=== PATIENT | female | born 1940 | race African-American/Black ===

== ENCOUNTER 2017-01-28 13:09 | Inpatient (IN) ==
--- NOTE | 2017-01-28 14:21 | EKG Report ---
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
[2017-01-28 14:46] LABS: Basophils # 0.1 10*3/uL (0.0-0.2); Basophils % 1.3 % (0.0-0.8); Eosinophils % 14.8 % (0.00-10.9); Hematocrit 35.2 VOL% (35.7-47.0); Hemoglobin 11.2 GM/DL (12.0-16.0); Immature Granulocytes % 0.4 %; Immature Granulocytes Absolute 0.03 #; Lymphocytes # 2.6 10*3/uL (1.4-4.0); Lymphocytes % 37.8 % (21.3-54.2); Mean Corpuscular HGB Conc 31.8 GM/DL (32-36); Mean Corpuscular Hemoglobin 29 PG (27-34); Mean Corpuscular Volume 92.4 FL (87-102); Mean Platelet Volume 11.5 FL (9.6-12.0); Monocytes # 0.7 10*3/uL (0.11-0.8); Monocytes % 10.5 % (1.7-12.7); Neutrophils # 2.4 10*3/uL (1.4-7.4); Neutrophils % 35.2 % (38.7-73.9); Platelet Count 96 T/CUMM (130-400); Red Blood Count 3.81 MC/CUMM (3.8-5.5); White Blood Count 6.9 T/CUMM (4-12)
--- NOTE | 2017-01-28 14:59 | XRay Report ---
XR chest 1V portable Indication: Shortness of breath. Chest one view: Comparison 08/06/2016. Cardiomegaly has resolved since that examination, with continued thoracic aortic tortuosity. Mediastinal wires are again noted. Coarsened interstitial markings of the lungs are present with continued hazy obscuration of both lung bases, especially on the left. Bilateral infrahilar air bronchograms noted. CT of the abdomen and pelvis from 07/01/2016 shows relatively severe diffuse interstitial lung disease. Impression: Resolution of cardiomegaly since 08/06/2016. Diffuse interstitial lung disease again present. Bilateral infrahilar pneumonia/pneumonitis. PROCEDURE INTERPRETED AT [facility] DEPARTMENT OF RADIOLOGY Final Report Signed by: Wolfgang Bradford M.D.
[2017-01-28 15:12] LABS: Apearance,Urine CLEAR (Clear); Bilirubin,Urine Negative (Negative); Blood, Urine Negative (Negative); Glucose,Urine (UA) Negative (Negative); Ketones,Urine Negative (Negative); Nitrite,Urine Negative (Negative); Protein,Urine Negative; Squamous Epithelial Cell,Urine Occasional /HPF (0-10); Urine Color Yellow (Yellow); Urine Urobilinogen < 2.0 EU/DL (0.2-1.0); WBC,Urine <1 /HPF (0-6)
[2017-01-28 15:17] LABS: Alanine Aminotransferase 10 U/L (13-56); Alkaline Phosphatase 87 U/L (45-117); Aspartate Amino Transferase 11 U/L (0-37); Bilirubin,Total < 0.39 MG/DL (0.2-1.0); Blood Urea Nitrogen 41 MG/DL (7-18); Calcium 9.3 MG/DL (8.5-10.1); Glucose 88 MG/DL (74-106); Magnesium 2.4 MG/DL (1.8-2.4); Osmolality,Calculated 278.1 MOS/KG (273-304); Sodium 135 MMOL/L (136-145); Total Protein 7.5 G/DL (6.4-8.3)
[2017-01-28 15:23] LABS: Potassium 6.1 MMOL/L (3.5-5.1)
--- NOTE | 2017-01-28 15:42 | Emergency Department Note ---
Aristeo Mcdaniel Brittany, am scribing for, and in the presence of, Dago Olivas MD 14:21. Brendon Mcdaniel Phillip K, MD, personally performed the services described in this documentation, ascribed by Mikaela Alberts in my presence, and it is both accurate and complete [id number] . Arrival - Arrival Chief Complaint: Weakness Stated Complaint: potassium low ED Nursing Triage Note: C/o generalized weakness, fatigue, and "just not feeling well"-onset two weeks ago. Had blood work drawn yesterday, instructed to come to the ER for elevated potassium of 6.6. Also reports right breast pain , redness, and swelling "for a while". Mode of Arrival: Wheelchair Limitations: No Limitations Source: Patient, Family (son), RN Notes Reviewed Time Seen by Provider: 01/28/17 13:41 - History of Present Illness HPI Narrative: Patient is a 76 y/o black female presenting to the ED with c/o weakness and fatigue with an onset of 2 weeks. Patient had blood work drawn at PCP office and was instructed to come to the ED today for further evaluation of elevated potassium of 6.6, Creatinine of 3.1, Hgb of 11 and Hct of 36. Patient's son reports that patient has had an increase in weakness, productive cough, loss of appetite and fluid intake. Patient states she noticed a hardness forming in her right breast about 3 weeks ago, and since this has progressed into swelling, redness, and warmth to touch of the right breast. He states that patient has a history significant for right Breast CA that was treated per Dr. Nair 5 years ago. He erporets that patient had a Lumpectomy and received radiation therapy. Her last time seeing Dr. Nair was about 3 years ago per son. Son states that after patient's visit with PCP yesterday she had an appointment placed at Dr. Nair's office to receive a mammogram or breast ultrasound. Son reports that patient was getting treated for a UTI and finished her last dose of abx yesterday. He states that 3 days ago patient began to have visual hallucinations with which she was seeing and talking to family members. Patient does not take potassium supplements. Patient has no other complaint/pain in the ED at this time. Onset (ago): week(s) (3) Consistency: constant Date of Last Menstrual Period: tere Allergies/Adverse Reactions: Allergies Allergy/AdvReac Type Severity Reaction Status Date / Time No Known Allergies Allergy Verified 01/28/17 13:27 Home Medications: Home Medications Medication Instructions Recorded Confirmed Type Oxycodone HCl/Acetaminophen 1 tablet PO Q6HR PRN 07/18/15 01/28/17 History [Percocet 10-325 mg Tablet] Albuterol Sulfate [Proair HFA] 2 puffs INH Q4-6H PRN 12/31/15 01/28/17 History Albuterol Tab [Proventil Tab] 2 mg PO DAILY 08/06/16 01/28/17 History Carvedilol [Coreg] 25 mg PO BID 08/06/16 01/28/17 History Isosorbide Mononitrate [Isosorbide 30 mg PO DAILY 08/06/16 01/28/17 History Mononitrate ER] Cyanocobalamin Inj [Vitamin B12 1,000 mcg IM Q30D 01/28/17 01/28/17 History Inj] Esomeprazole Magnesium 40 mg PO DAILY 01/28/17 01/28/17 History [Esomeprazole] Furosemide Tab [Lasix Tab] 40.5 mg PO DAILY 01/28/17 01/28/17 History Venlafaxine HCl [Venlafaxine HCl 75 mg PO DAILY 01/28/17 01/28/17 History ER] Zolpidem Tartrate [Ambien] 10 mg PO BEDTIME PRN 01/28/17 01/28/17 History hydrOXYzine HCL TAB [Atarax Tab] 25 mg PO TID PRN 01/28/17 01/28/17 History Review of System - Review of System 12 point system: reviewed and no additional remarkable complaints except as stated - Review of System Constitutional: Present: as per HPI (breast swelling, redness, hardness), weakness. Absent: chills, fever Eyes: Absent: vision change Head/Ears/Nose/Throat: Absent: nasal drainage, sore throat Respiratory: Absent: respiratory distress Cardiovascular: Absent: chest pain Gastrointestinal: Absent: abdominal pain, nausea, vomiting, diarrhea, constipation Genitourinary female: Absent: dysuria, frequency, urgency Musculoskeletal: Absent: arm pain, back pain, leg pain, neck pain Skin: Absent: rash Neurological: Absent: headache Psychiatric: Present: as per HPI, visual hallucinations. Absent: anxiety, depression Endocrine: Present: fatigue Hematological/Lymphatic: Absent: easy bleeding, easy bruising Medical,Surgical,& Family Hx - Medical History Cardio: History of: Aneurysm (AAA REPAIR), Cardiac Dysrhythmia, CHF, CAD, Hypertension, Valvular Heart Disease, Cardiovascular Problems No history of: Cerebrovascular Disease, Congenital Heart Disease, [place], Pacemaker, PVD Psychological: History of: Depression No history of: Anxiety Disorders, ADHD, Behavior Problems, Bipolar Disorder, Previous Suicide Attempt, Psychiatric/Substance Abuse Tx, Schizophrenia, Violent Behavior, Psychiatric Problems HEENT: History of: 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), Dental Problems, HEENT Problems (nose bleeds times 2-3 weeks) No history of: Ear Problem, Glaucoma, Oral Cancer Endocrine: No history of: Adrenal Disease, Diabetes Mellitus (IDDM), Diabetes Mellitus ( NIDDM), Dyslipidemia, Thyroid Disorder, Endocrine Cancer, Endocrine Problems Rheumatology: History of;: Gout, Rheumatoid Arthritis, Rheumatological Problems No history of;: Fibromyalgia, Myasthenia Gravis, Psoriasis, Sjogrens, Systemic Lupus Erythematosus Respiratory: History of: Bronchitis, COPD, Obstructive Sleep Apnea (wears o2 per nc continuously), Pneumonia No history of: Asthma, Intubation, Pulmonary Embolism, Pulmonary Hypertension , Lung Cancer Renal: History of: Renal Failure (chronic), Renal Problems No history of: Renal (Kidney) Cancer, Dialysis Genitourinary: History of: Kidney Stones, Recurring Urinary Tract Infections, Problems (incontinence) No history of: Bladder Problem, Genitourinary Cancer Gastrointestinal: History of: Diverticulitis/ Diverticulosis, GERD, Hemorrhoids No history of: Bowel Obstruction, Clostridium Difficile, Crohn's Disease, Esophageal Varices, Gastrointestinal Bleed, Hematochezia, Hepatitis, Liver Problems, Pancreatitis, Polyps, Ulcerative Colitis, Gastrointestinal Cancer Musculoskeletal: History of: Amputation, Back/Neck Problems (slipped disk in back), Musculoskeletal Problems (Chronic low back pain) No history of: Degenerative Disk Disease, Herniated Disk, Osteoporosis, Musculoskeletal Cancer Hematology: No history of: Anemia, Blood Transfusion Reaction, Bleeding Problems, Clotting Problems, Sickle Cell Disease, Hematologic Cancer, Blood Disorders Reproductive: History of: Breast Cancer No history of: Abnormal Pap Smear, Endometriosis, Ectopic , Ovarian Cysts, Complication, Sexually Transmitted Disorders, Reproductive Cancer, Reproductive Problems Other: History of: Cancer (breast cancer) No history of: Anesthesia Reactions, Anaphylaxis, Eczema, HIV, Malignant Hyperthermia, MRSA, Vancomycin-Resistant Enterococci, Skin Problems, Miscellaneous Medical Problems - Surgical History Cardiac Surgeries: Sugical HX of: Cardiac Catheterization (heart valve replacement), Cardiac Surgery (valve replacement), Vascular Access Devices ( heart stent in approximately 4 years ago) Patient Denies: Femoral-Popliteal Bypass Graft, Carotid Endarterectomy, Internal Defibrillator Thoracic Surgeries: Patient denies;: Kidney (Renal Surgery), Lithotripsy, Nephrectomy, Organ Transplant, Lobectomy Neurologic Surgeries: Patient denies: Neurologic Surgery HEENT Surgeries: Patient denies: Carotid Endarterectomy, Eye Surgery, Thyroid Surgery, Tonsilectomy & Adenoidectomy Abdominal Surgeries: Surgical HX of: Abdominal Surgery, Cholecystectomy, Colonoscopy, Hernia Repair Patient denies: Appendectomy, Gastric Bypass Surgery, EGD, Splenectomy Reproductive Surgeries: Surgical HX of;: Gynecologic Surgery Patient denies;: Section, Cystoscopy, Dilation and Curettage, Genitourinary Surgery, Hysterectomy, Tubal Ligation Orthopedic Surgeries: Surgical HX of;: Implanted Devices (heart stent and aneurysm repair) Patient denies;: Orthopedic Surgery, Spinal Surgery, Total Hip Replacement, Total Knee Replacement - Family History Family History: Reports;: Family Cancer (materal aunt, grandmother, grandfather , daughter), Family Diabetes (sister), Family Heart Disease (daughter), Family Hypertension ("The whole family has high blood pressure."), Family Stroke ( daughter) Denies;: Family Anesthesia Reaction, Family Psychiatric Problems - Social History Smoking Status: Former smoker Frequency of Alcohol Use: None Type of Drug Use: None Exam Vital Signs: Vital Signs Temperature 96.1 F L 01/28/17 13:35 Pulse Rate 60 01/28/17 13:35 Respiratory Rate 18 01/28/17 13:35 Blood Pressure 107/61 01/28/17 13:35 O2 Sat by Pulse Oximetry 96 01/28/17 13:23 - General General appearance: alert, in no apparent distress - Head Head exam: Present: atraumatic, normocephalic, normal inspection - Eye Eye exam: Present: normal appearance, PERRL, EOMI - ENT ENT exam: Present: normal exam, normal oropharynx, mucous membranes moist - Neck Neck exam: Present: normal inspection, full ROM, trachea midline - Chest Chest inspection: Present: symmetric chest wall rise. Absent: normal inspection (There is diffuse swelling and erythema to the right breast, hot to touch. Palpable hardness. Right breast has an orange peel appearance.) - Respiratory Respiratory exam: Present: rales (bibasilar rales). Absent: normal lung sounds bilaterally - Cardiovascular Cardiovascular exam: Present: regular rate, normal rhythm, murmur (2/6 systolic ejection murmur). Absent: normal heart sounds - Abdominal Exam Abdominal exam: Present: soft, normal bowel sounds. Absent: distention, tenderness - Extremities Exam Extremities exam: Present: normal inspection - Back Exam Back exam: Present: normal inspection - Neurological Exam Neurological exam: Present: alert, CN II-XII intact. Absent: oriented X3 ( patient is oriented to person and place, but is not oriented to time. Per son this is a change.), motor sensory deficit - Psychiatric Psychiatric exam: Present: normal affect - Skin Skin exam: Present: warm, dry Course Course Narrative: Patient discussed with the hospitalist who will admit for further evaluation. Results - Labs CBC & BMP: 01/28/17 14:21 01/28/17 14:21 Lab Results: I have reviewed the patients labs Labs: Laboratory Tests 01/28/17 14:21 WBC 6.9 RBC 3.81 Hgb 11.2 L Hct 35.2 L MCV 92.4 MCH 29 MCHC 31.8 L RDW 16.0 Plt Count 96 L MPV 11.5 Neut % (Auto) 35.2 L Lymph % (Auto) 37.8 [place] % (Auto) 10.5 Eos % (Auto) 14.8 H Baso % (Auto) 1.3 H Neut # (Auto) 2.4 Lymph # (Auto) 2.6 [place] # (Auto) 0.7 Eos # (Auto) 1.0 H Baso # (Auto) 0.1 Immature Gran % 0.4 Nucleated RBC % 0.0 Immature Gran # 0.03 Nucleated RBCs # 0.00 Laboratory Tests 01/28/17 01/28/17 14:21 14:21 Sodium 135 L Potassium 6.1 H* Chloride 103 Carbon Dioxide 23 Anion Gap 15.1 H BUN 41 H Creatinine 3.20 H GFR Calculation 15 BUN/Creatinine Ratio 12.00 Glucose 88 Calculated Osmolality 278.1 Calcium 9.3 Magnesium 2.4 Total Bilirubin < 0.39 AST 11 ALT 10 L Alkaline Phosphatase 87 Total Protein 7.5 Albumin 4.0 Globulin 3.5 Albumin/Globulin Ratio 1.1 Urine Color Yellow Urine Appearance Clear Urine pH 6.0 Ur Specific [place] 1.010 Urine Protein Negative Urine Glucose (UA) Negative Urine Ketones Negative Urine Blood Negative Urine Nitrate Negative Urine Bilirubin Negative Urine Urobilinogen < 2.0 H Urine Leukocytes Negative Urine WBC <1 Ur Squamous Epith Cells Occasional - EKG EKG results: interpreted by ERMD, WNL, sinus rhythm - Diagnostic Findings Procedure: Chest x-ray: report reviewed by me (Resolution of cardiomegaly since 08/06/16. Diffuse interstitial lung disease again present. Bilateral infrahilar pneumonia/pneumonitis.) Disposition Clinical Impression: Hyperkalemia, probable right breast carcinoma, right infrahilar pneumonia, Visual hallucinations, Generalized weakness Case discussed with: patient, patient's family Disposition: Still a Patient Condition: Guarded Additional Instructions: Admit to the hospitalist.
[2017-01-28] MEDS ORDERED: LACTULOSE 20 GM/30 ML UDCUP PO PRN (16:22)
[2017-01-28] MEDS ORDERED: ALBUTEROL/IPRATROPIUM 3 ML NEB RESP TX PRN (16:22)
[2017-01-28] MEDS ORDERED: DOCUSATE SODIUM 100 MG CAPSULE PO PRN (16:22)
[2017-01-28] MEDS ORDERED: ONDANSETRON 4 MG/2 ML VIAL IV PRN (16:22)
[2017-01-28 16:52] LABS: Risk Ratio 5.96; VLDL CHOLESTEROL 42.6 MG/DL
--- NOTE | 2017-01-28 16:58 | Hospitalist History & Physical ---
<Sid Bedoya - Last Filed: 01/28/17 16:37> Assessment and Plan - Time spent with patient Time spent with patient: Greater than 30 minutes (1) Generalized weakness Status: Acute Assessment and plan: Likely related to decreased appetite and dehydration. Start IV fluids. Current Visit: Yes (2) STUART (acute kidney injury) Status: Acute Assessment and plan: BUN 41 creatinine 3.2. This does not appear to be the patient's baseline. She is followed by Dr. Gore nephrology. We will avoid nephrotoxic agents and consult nephrology for recommendations. Current Visit: No (3) Coronary artery disease Status: Acute Assessment and plan: History of coronary artery disease. Status post aortic valve replacement and stent to the abdominal aorta. Monitor lipids. Current Visit: No (4) Hyperkalemia Status: Acute Assessment and plan: Potassium 6.1. Kayexalate should be sufficient for this patient. Current Visit: Yes (5) Visual hallucinations Status: Acute Assessment and plan: With a history of breast cancer, this is concerning. We will get an MRI as a precautionary measure. Current Visit: Yes (6) Debility Status: Acute Current Visit: No (7) Hypertension Status: Chronic Assessment and plan: Appears to be well controlled on home meds. Continue home meds Current Visit: No Qualifiers: Hypertension type: essential hypertension Qualified Code(s): I10 - Essential (primary) hypertension History of Present Illness Chief complaint: Generalized weakness History of present illness: Ms. Doyle is a 76 year old female with complicated past medical history including hypertension, CAD, AAA with stent, aortic valve replacement, COPD on 2L O2, CKD, and history of breast cancer who presents to the ED with complaints of generalized weakness x 3 weeks. On admission, the patient is lying in bed in [facility]. Her son is at bedside and provided most of her history. She denies any pain ; however, she does admit to a progressive decrease in appetite and thirst. She has been having more and more difficulty walking without falling. Her son reports a recent onset of jerky movements in her legs and arms. She also has noticed more swelling and hardness in the upper left quadrant of her right breast. She sees Dr. Nair for her breast cancer and is scheduled to have a mammogram done on February 08. Today, the breast remains warm to the touch and firm. She is afebrile and reports her last BM as last Tuesday. She does have chronic sinusitis and admits to taking Afrin frequently (sometimes daily). She has chronic back pain and takes opioids for that. She has no other complaints at this time. Her son, however, does report that the patient has recently started "talking out of her head" and to family members. CXR on admission shows interstitial lung disease and bilateral infrahilar pneumonia/pneumonitis. EKG shows sinus rhythm with atypical ST changes. Preliminary lab work: Na 135, K 6.1, CL 103, HCO3 23, BUN 41, Cr 3.20, BG 88, WBC 6.9, H/H 11.2/35.2, Plt 96. She will be admitted to the hospital medicine service for further evaluation and treatment. She sees Dr. Gore for her kidney disease. We will consult nephrology and oncology for recommendations. Home Medications Medication Instructions Recorded Confirmed Type Oxycodone HCl/Acetaminophen 1 tablet PO Q6HR PRN 07/18/15 01/28/17 History [Percocet 10-325 mg Tablet] Albuterol Sulfate [Proair HFA] 2 puffs INH Q4-6H PRN 12/31/15 01/28/17 History Albuterol Tab [Proventil Tab] 2 mg PO DAILY 08/06/16 01/28/17 History Carvedilol [Coreg] 25 mg PO BID 08/06/16 01/28/17 History Isosorbide Mononitrate [Isosorbide 30 mg PO DAILY 08/06/16 01/28/17 History Mononitrate ER] Cyanocobalamin Inj [Vitamin B12 1,000 mcg IM Q30D 01/28/17 01/28/17 History Inj] Esomeprazole Magnesium 40 mg PO DAILY 01/28/17 01/28/17 History [Esomeprazole] Furosemide Tab [Lasix Tab] 40.5 mg PO DAILY 01/28/17 01/28/17 History Venlafaxine HCl [Venlafaxine HCl 75 mg PO DAILY 01/28/17 01/28/17 History ER] Zolpidem Tartrate [Ambien] 10 mg PO BEDTIME PRN 01/28/17 01/28/17 History hydrOXYzine HCL TAB [Atarax Tab] 25 mg PO TID PRN 01/28/17 01/28/17 History Allergies Allergy/AdvReac Type Severity Reaction Status Date / Time No Known Allergies Allergy Verified 01/28/17 13:27 Medical,Surgical,& Family Hx - Medical History Cardio: History of: Aneurysm (AAA REPAIR), Cardiac Dysrhythmia, CHF, CAD, Hypertension, Valvular Heart Disease, Cardiovascular Problems No history of: Cerebrovascular Disease, Congenital Heart Disease, [place], Pacemaker, PVD Psychological: History of: Depression No history of: Anxiety Disorders, ADHD, Behavior Problems, Bipolar Disorder, Previous Suicide Attempt, Psychiatric/Substance Abuse Tx, Schizophrenia, Violent Behavior, Psychiatric Problems HEENT: History of: 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), Dental Problems, HEENT Problems (nose bleeds times 2-3 weeks) No history of: Ear Problem, Glaucoma, Oral Cancer Endocrine: No history of: Adrenal Disease, Diabetes Mellitus (IDDM), Diabetes Mellitus ( NIDDM), Dyslipidemia, Thyroid Disorder, Endocrine Cancer, Endocrine Problems Rheumatology: History of;: Gout, Rheumatoid Arthritis, Rheumatological Problems No history of;: Fibromyalgia, Myasthenia Gravis, Psoriasis, Sjogrens, Systemic Lupus Erythematosus Respiratory: History of: Bronchitis, COPD, Obstructive Sleep Apnea (wears o2 per nc continuously), Pneumonia No history of: Asthma, Intubation, Pulmonary Embolism, Pulmonary Hypertension , Lung Cancer Renal: History of: Renal Failure (chronic), Renal Problems No history of: Renal (Kidney) Cancer, Dialysis Genitourinary: History of: Kidney Stones, Recurring Urinary Tract Infections, Problems (incontinence) No history of: Bladder Problem, Genitourinary Cancer Gastrointestinal: History of: Diverticulitis/ Diverticulosis, GERD, Hemorrhoids No history of: Bowel Obstruction, Clostridium Difficile, Crohn's Disease, Esophageal Varices, Gastrointestinal Bleed, Hematochezia, Hepatitis, Liver Problems, Pancreatitis, Polyps, Ulcerative Colitis, Gastrointestinal Cancer Musculoskeletal: History of: Amputation, Back/Neck Problems (slipped disk in back), Musculoskeletal Problems (Chronic low back pain) No history of: Degenerative Disk Disease, Herniated Disk, Osteoporosis, Musculoskeletal Cancer Hematology: No history of: Anemia, Blood Transfusion Reaction, Bleeding Problems, Clotting Problems, Sickle Cell Disease, Hematologic Cancer, Blood Disorders Reproductive: History of: Breast Cancer No history of: Abnormal Pap Smear, Endometriosis, Ectopic , Ovarian Cysts, Complication, Sexually Transmitted Disorders, Reproductive Cancer, Reproductive Problems Other: History of: Cancer (breast cancer) No history of: Anesthesia Reactions, Anaphylaxis, Eczema, HIV, Malignant Hyperthermia, MRSA, Vancomycin-Resistant Enterococci, Skin Problems, Miscellaneous Medical Problems - Surgical History Cardiac Surgeries: Sugical HX of: Cardiac Catheterization (heart valve replacement), Cardiac Surgery (valve replacement), Vascular Access Devices ( heart stent in approximately 4 years ago) Patient Denies: Femoral-Popliteal Bypass Graft, Carotid Endarterectomy, Internal Defibrillator Thoracic Surgeries: Patient denies;: Kidney (Renal Surgery), Lithotripsy, Nephrectomy, Organ Transplant, Lobectomy Neurologic Surgeries: Patient denies: Neurologic Surgery HEENT Surgeries: Patient denies: Carotid Endarterectomy, Eye Surgery, Thyroid Surgery, Tonsilectomy & Adenoidectomy Abdominal Surgeries: Surgical HX of: Abdominal Surgery, Cholecystectomy, Colonoscopy, Hernia Repair Patient denies: Appendectomy, Gastric Bypass Surgery, EGD, Splenectomy Reproductive Surgeries: Surgical HX of;: Gynecologic Surgery Patient denies;: Section, Cystoscopy, Dilation and Curettage, Genitourinary Surgery, Hysterectomy, Tubal Ligation Orthopedic Surgeries: Surgical HX of;: Implanted Devices (heart stent and aneurysm repair) Patient denies;: Orthopedic Surgery, Spinal Surgery, Total Hip Replacement, Total Knee Replacement - Family History Family History: Reports;: Family Cancer (materal aunt, grandmother, grandfather , daughter), Family Diabetes (sister), Family Heart Disease (daughter), Family Hypertension ("The whole family has high blood pressure."), Family Stroke ( daughter) Denies;: Family Anesthesia Reaction, Family Psychiatric Problems - Social History Smoking Status: Former smoker Frequency of Alcohol Use: None Type of Drug Use: None Marital Status: Single Lives With:: Children Functional capacity: uses cane/walker - Constitutional Constitutional: Present: daytime sleepiness, frequent falls, weakness. Absent: fever(s), headache(s) - EENT Eyes: Absent: blurry vision, loss of vision Ears: Absent: decreased hearing, ear pain Nose, mouth and throat: Present: sinus pressure. Absent: dysphagia, headache(s) , hoarseness, neck mass - Cardiovascular Cardiovascular: Present: dyspnea. Absent: chest pain at rest, chest pain with activity, diaphoresis, edema, radiating jaw, neck or arm pain, palpitations - Respiratory Respiratory: Present: dyspnea. Absent: cough, hemoptysis, pain on inspiration - Gastrointestinal Gastrointestinal: Present: abdominal pain, change in bowel habits, constipation. Absent: bloating, diarrhea, melena, nausea - Genitourinary Genitourinary: Absent: difficulty urinating, dysuria, flank pain, hematuria - Musculoskeletal Musculoskeletal: Present: back pain - Neurological Neurological: Present: confusion. Absent: abnormal gait, abnormal speech, dizziness, syncope - Psychiatric Psychiatric: Present: confusion, visual hallucinations. Absent: auditory hallucinations - Endocrine Endocrine: Present: fatigue. Absent: cold intolerance, heat intolerance - Hematologic/Lymphatic Hematologic/Lymphatic: Absent: easy bleeding, easy bruising Exam - Constitutional Vitals: Period Temp Pulse Resp BP Sys/Benjamin Pulse Ox Last 24 Hr 96.1 F-96.1 F 60-60 18-18 107-107/61-61 96 Exam: General appearance: Overweight, no acute distress - Head Head exam: Present: normocephalic, atraumatic - Eye Eye exam: Present: EOMI. Absent: conjunctival injection, nystagmus Pupils: Present: GORDY, normal accommodation - ENT ENT exam: Present: normal exam, normal external ear exam - Neck Neck exam: Present: normal inspection. Absent: lymphadenopathy, tenderness, thyromegaly - Respiratory Respiratory exam: Present: clear to auscultation bilaterally. Absent: rales, rhonchi, wheezes - Cardiovascular Cardiovascular exam: Present: regular rate and rhythm. Absent: carotid bruit, gallop, rubs - GI/Abdominal GI/Abdominal exam: Present: normal bowel sounds. Absent: ascites, distended, mass - Extremities Exam Extremities exam: Present: normal inspection, normal capillary refill. Absent: edema - Back Exam Back exam: Absent: CVA tenderness (L), CVA tenderness (R) - Neurological Exam Neurological exam: Present: alert, oriented X3, slightly confused - Psychiatric Psychiatric exam: Present: normal affect, normal mood - Skin Skin exam: Present: normal color, warm, dry Results - Labs CBC & BMP: 01/28/17 14:21 01/28/17 14:21 Lab Results: I have reviewed the past 24 hour labs - EKG EKG results: interpreted by ERMD - Diagnostic Findings Procedure: Chest x-ray: image reviewed by me, report reviewed by me (pneumonia/ pneumonitis) <Anna Sotelo - Last Filed: 01/28/17 18:14> History of Present Illness History of present illness: Patient seen and examined along with VON Bedoya, agree with history, assessment and plan as documented. 76 y/o AAF with history of breast cancer admitted with pneumonia, stuart on ckd and hallucinations. Patient and son report approximately a 40 pound weight loss in 2 months. Appearance of right breast is concerning. Will hydrate and treat with azithromycin and rocephin. Will order breast ultrasound and CT head. Believe that she will also require MRI brain. Exam - Constitutional Vitals: Period Temp Pulse Resp BP Sys/Benjamin Pulse Ox Last 24 Hr 97.7 F 65 16 120/67 96 Results - Labs CBC & BMP: 01/28/17 14:21 01/28/17 14:21
--- NOTE | 2017-01-28 17:04 | XRay Report ---
Exam: XR KUB Date: 01/28/2017 4:28 PM Comparison: 07/01/2016 Indication: Constipation Technique:[Portable supine abdomen] Findings: Nonobstructive bowel gas pattern with increased fecal material in the colon. Prior cholecystectomy with aortoiliac stent graft. Degenerative changes are noted. Impression: Nonobstructed bowel gas pattern with increased fecal material consistent with constipation. Prior cholecystectomy with aorto iliac stent graft. PROCEDURE INTERPRETED AT [facility] DEPARTMENT OF RADIOLOGY Final Report Signed by: Dr. Lindsey Samson
[2017-01-28] MEDS: cefTRIAXone 1,000 MG in SODIUM CHLORIDE 0.9% 100 ML IV SCH (17:30)
[2017-01-28] MEDS: SODIUM CHLORIDE 0.9% 1,000 ML IV SCH ×2 (17:30→23:30)
[2017-01-28 18:56] LABS: Eosinophils 14 % (0-10); Lymphocytes 38 % (20-55); Platelet Estimate Normal; Segmented Neutrophils 39 % (50-85); Total Cells Counted 100
--- NOTE | 2017-01-28 19:22 | CT Report ---
Referring physician: Anna Sotelo MD Exam: CT brain without contrast Date: 01/28/2017 Comparison: 09/21/2016 Reason: Alteration of consciousness, hallucinations Technique: Axial images of the head were obtained without the use of contrast. Total DLP was 914.6 mGy*cm. Findings: The ventricles remain borderline in size with no midline displacement. Diffuse atrophy and several hypodensities with chronic left cerebellar infarction. Arterial calcifications are noted. There is no evidence of an acute infarction, recent intracranial hemorrhage or abnormal mass effect. The osseous structures appear intact. The mastoid air cells are clear. Diffuse mucosal thickening/fluid in the visualized paranasal sinuses. Impression: No acute intracranial abnormality is identified. Persistent atrophy and microvascular disease with chronic left cerebellar infarction. Improved sinusitis. The CT exam was performed using one or more of the following dose reduction techniques: Automated exposure control and adjustment of the mA and/or kV according to patient size. PROCEDURE INTERPRETED AT [facility] DEPARTMENT OF RADIOLOGY Final Report Signed by: Dr. Lindsey Samson
[2017-01-28] MEDS: CARVEDILOL 25 MG TABLET PO SCH (20:09)
[2017-01-28] MEDS: ZALEPLON 5 MG CAPSULE PO PRN (20:09)
[2017-01-28] MEDS: AZITHROMYCIN INJ 500 MG in SODIUM CHLORIDE 0.9% 250 ML IV SCH (21:07)
[2017-01-29 03:24] LABS: Basophils % 0.5 % (0.0-0.8); Eosinophils # 1.8 10*3/uL (0.0-0.87); Eosinophils % 23.6 % (0.00-10.9); Hematocrit 32.6 VOL% (35.7-47.0); Hemoglobin 10.2 GM/DL (12.0-16.0); Immature Granulocytes % 0.4 %; Immature Granulocytes Absolute 0.03 #; Lymphocytes # 2.1 10*3/uL (1.4-4.0); Lymphocytes % 28.1 % (21.3-54.2); Mean Corpuscular HGB Conc 31.3 GM/DL (32-36); Mean Corpuscular Hemoglobin 29 PG (27-34); Mean Corpuscular Volume 93.1 FL (87-102); Mean Platelet Volume 11.9 FL (9.6-12.0); Monocytes # 0.8 10*3/uL (0.11-0.8); Monocytes % 11.1 % (1.7-12.7); Neutrophils # 2.8 10*3/uL (1.4-7.4); Neutrophils % 36.3 % (38.7-73.9); Platelet Count 86 T/CUMM (130-400); White Blood Count 7.6 T/CUMM (4-12)
[2017-01-29 03:43] LABS: Osmolality,Calculated 287.5 MOS/KG (273-304); Potassium 5.6 MMOL/L (3.5-5.1)
[2017-01-29 04:06] LABS: Eosinophils 22 % (0-10); Lymphocytes 29 % (20-55); Platelet Estimate Decreased; Segmented Neutrophils 41 % (50-85); Total Cells Counted 100
[2017-01-29 04:07] LABS: Hypochromasia Slight; Ovalocytes Few; Polychromasia 1+
[2017-01-29 07:27] LABS: Folate 11.7 NG/ML (5.4-24.0); Vitamin B12 > 2000 PG/ML (211-911)
[2017-01-29] MEDS: VENLAFAXINE XR 75 MG CAPSULE PO SCH (08:16)
[2017-01-29] MEDS: FUROSEMIDE 40 MG TABLET PO SCH (08:16)
[2017-01-29] MEDS: CARVEDILOL 25 MG TABLET PO SCH ×2 (08:16→20:18)
[2017-01-29] MEDS: ISOSORBIDE MONONITRATE 30 MG TABLET PO SCH (08:16)
[2017-01-29] MEDS: SODIUM CHLORIDE 0.9% 1,000 ML IV SCH ×3 (10:01→23:49)
--- NOTE | 2017-01-29 10:58 | Oncology Consult Note ---
History of Present Illness History of present illness: Ms. Doyle is a 76 year old female with a distant history of stage I right- sided breast cancer status post mastectomy followed by radiation and adjuvant anti-hormonal therapy. Her initial diagnosis was in 2008 and she completed therapy in 2013. Her last visit with Dr. Elam was in 2014. She was lost to follow-up after that point. She reports significant weight loss over the last year and states she has had numerous medical problems during that time. She said she lost over 100 pounds. In the last 2-3 weeks she says her right breast become more swollen and warm to the touch. She also notes that the area of darkening from radiation has worsened. On breast exam I do not palpate any obvious mass. The darkening of her skin appears to be radiation related but I do not have a previous picture of her breast to compare to. I think it is worth at least starting with a mammogram of the right breast to evaluate for a mass. Also order a CA 15-3 from her serum. Her creatinine is elevated at 3 so we will hold off on ordering a CT scan at this point. Given her significant weight loss it may be brito to have one done at some point. She was very alert and oriented this morning on my exam. She states she is weak and fatigued. I will defer further workup to Dr. Elam when he returns next week. I am unsure if the mammogram can be done over the weekend. Home Medications Medication Instructions Recorded Confirmed Type Oxycodone HCl/Acetaminophen 1 tablet PO Q6HR PRN 07/18/15 01/28/17 History [Percocet 10-325 mg Tablet] Albuterol Sulfate [Proair HFA] 2 puffs INH Q4-6H PRN 12/31/15 01/28/17 History Albuterol Tab [Proventil Tab] 2 mg PO DAILY 08/06/16 01/28/17 History Carvedilol [Coreg] 25 mg PO BID 08/06/16 01/28/17 History Isosorbide Mononitrate [Isosorbide 30 mg PO DAILY 08/06/16 01/28/17 History Mononitrate ER] Cyanocobalamin Inj [Vitamin B12 1,000 mcg IM Q30D 01/28/17 01/28/17 History Inj] Esomeprazole Magnesium 40 mg PO DAILY 01/28/17 01/28/17 History [Esomeprazole] Furosemide Tab [Lasix Tab] 40.5 mg PO DAILY 01/28/17 01/28/17 History Venlafaxine HCl [Venlafaxine HCl 75 mg PO DAILY 01/28/17 01/28/17 History ER] Zolpidem Tartrate [Ambien] 10 mg PO BEDTIME PRN 01/28/17 01/28/17 History hydrOXYzine HCL TAB [Atarax Tab] 25 mg PO TID PRN 01/28/17 01/28/17 History Allergies Allergy/AdvReac Type Severity Reaction Status Date / Time No Known Allergies Allergy Verified 01/28/17 13:27 Medical,Surgical,& Family Hx - Medical History Cardio: History of: Aneurysm (AAA REPAIR), Cardiac Dysrhythmia, CHF, CAD, Hypertension, Valvular Heart Disease, Cardiovascular Problems No history of: Cerebrovascular Disease, Congenital Heart Disease, [place], Pacemaker, PVD Psychological: History of: Depression No history of: Anxiety Disorders, ADHD, Behavior Problems, Bipolar Disorder, Previous Suicide Attempt, Psychiatric/Substance Abuse Tx, Schizophrenia, Violent Behavior, Psychiatric Problems HEENT: History of: 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), Dental Problems, HEENT Problems (nose bleeds times 2-3 weeks) No history of: Ear Problem, Glaucoma, Oral Cancer Endocrine: No history of: Adrenal Disease, Diabetes Mellitus (IDDM), Diabetes Mellitus ( NIDDM), Dyslipidemia, Thyroid Disorder, Endocrine Cancer, Endocrine Problems Rheumatology: History of;: Gout, Rheumatoid Arthritis, Rheumatological Problems No history of;: Fibromyalgia, Myasthenia Gravis, Psoriasis, Sjogrens, Systemic Lupus Erythematosus Respiratory: History of: Bronchitis, COPD, Obstructive Sleep Apnea (wears o2 per nc continuously), Pneumonia No history of: Asthma, Intubation, Pulmonary Embolism, Pulmonary Hypertension , Lung Cancer Renal: History of: Renal Failure (chronic), Renal Problems No history of: Renal (Kidney) Cancer, Dialysis Genitourinary: History of: Kidney Stones, Recurring Urinary Tract Infections, Problems (incontinence) No history of: Bladder Problem, Genitourinary Cancer Gastrointestinal: History of: Diverticulitis/ Diverticulosis, GERD, Hemorrhoids No history of: Bowel Obstruction, Clostridium Difficile, Crohn's Disease, Esophageal Varices, Gastrointestinal Bleed, Hematochezia, Hepatitis, Liver Problems, Pancreatitis, Polyps, Ulcerative Colitis, Gastrointestinal Cancer Musculoskeletal: History of: Amputation, Back/Neck Problems (slipped disk in back), Musculoskeletal Problems (Chronic low back pain) No history of: Degenerative Disk Disease, Herniated Disk, Osteoporosis, Musculoskeletal Cancer Hematology: No history of: Anemia, Blood Transfusion Reaction, Bleeding Problems, Clotting Problems, Sickle Cell Disease, Hematologic Cancer, Blood Disorders Reproductive: History of: Breast Cancer No history of: Abnormal Pap Smear, Endometriosis, Ectopic , Ovarian Cysts, Complication, Sexually Transmitted Disorders, Reproductive Cancer, Reproductive Problems Other: History of: Cancer (breast cancer) No history of: Anesthesia Reactions, Anaphylaxis, Eczema, HIV, Malignant Hyperthermia, MRSA, Vancomycin-Resistant Enterococci, Skin Problems, Miscellaneous Medical Problems - Surgical History Cardiac Surgeries: Sugical HX of: Cardiac Catheterization (heart valve replacement), Cardiac Surgery (valve replacement), Vascular Access Devices ( heart stent in approximately 4 years ago) Patient Denies: Femoral-Popliteal Bypass Graft, Carotid Endarterectomy, Internal Defibrillator Thoracic Surgeries: Patient denies;: Kidney (Renal Surgery), Lithotripsy, Nephrectomy, Organ Transplant, Lobectomy Neurologic Surgeries: Patient denies: Neurologic Surgery HEENT Surgeries: Patient denies: Carotid Endarterectomy, Eye Surgery, Thyroid Surgery, Tonsilectomy & Adenoidectomy Abdominal Surgeries: Surgical HX of: Abdominal Surgery, Cholecystectomy, Colonoscopy, Hernia Repair Patient denies: Appendectomy, Gastric Bypass Surgery, EGD, Splenectomy Reproductive Surgeries: Surgical HX of;: Gynecologic Surgery Patient denies;: Section, Cystoscopy, Dilation and Curettage, Genitourinary Surgery, Hysterectomy, Tubal Ligation Orthopedic Surgeries: Surgical HX of;: Implanted Devices (heart stent and aneurysm repair) Patient denies;: Orthopedic Surgery, Spinal Surgery, Total Hip Replacement, Total Knee Replacement - Family History Family History: Reports;: Family Cancer (materal aunt, grandmother, grandfather , daughter), Family Diabetes (sister), Family Heart Disease (daughter), Family Hypertension ("The whole family has high blood pressure."), Family Stroke ( daughter) Denies;: Family Anesthesia Reaction, Family Psychiatric Problems - Social History Smoking Status: Former smoker Frequency of Alcohol Use: None Type of Drug Use: None Exam - Constitutional Vitals: Period Temp Pulse Resp BP Sys/Benjamin Pulse Ox Last 24 Hr 96.9 F-99.4 F 58-69 16-18 120-162/65-87 91-96 Results - Labs CBC & BMP: 01/29/17 02:52 01/29/17 02:52
--- NOTE | 2017-01-29 13:21 | Hospitalist Progress Note ---
Assessment and Plan - Time spent with patient Time spent with patient: Less than 30 minutes (1) Hypertension Status: Chronic Current Visit: No Qualifiers: Hypertension type: essential hypertension Qualified Code(s): I10 - Essential (primary) hypertension (2) Hypomagnesemia Status: Acute Current Visit: No (3) Acute on chronic renal failure Status: Acute Assessment and plan: continue fluids monitor Cr Current Visit: No (4) Hyperkalemia Status: Acute Current Visit: Yes (5) Visual hallucinations Status: Acute Current Visit: Yes (6) Generalized weakness Status: Acute Assessment and plan: has weight loss and will need CT abd and chest once renal function recovers may need cancer restaging consult oncology Current Visit: Yes Hospitalist: Subjective Interval history: pt admitted yesterday with renal failure, hypokalemia, hallucinations, and breast changes and weight loss with hx of breast cancer pt on IV fluids no issues reported overnight Exam - Constitutional Vitals: Period Temp Pulse Resp BP Sys/Benjamin Pulse Ox Last 24 Hr 96.9 F-99.4 F 58-69 16-18 120-162/65-87 90-96 General appearance: no acute distress, over weight - Head Head exam: Present: normal inspection, normocephalic, atraumatic - Eye Eye exam: Present: EOMI Pupils: Present: GORDY - ENT ENT exam: Present: normal exam - Neck Neck exam: Present: normal inspection - Respiratory Respiratory exam: Present: clear to auscultation bilaterally - Cardiovascular Cardiovascular exam: Present: regular rate and rhythm. Absent: irregular rhythm , JVD - GI/Abdominal GI/Abdominal exam: Present: normal bowel sounds. Absent: ascites, distended, firm, guarding - Extremities Exam Extremities exam: Present: normal inspection - Back Exam Back exam: Present: normal inspection. Absent: CVA tenderness (L), CVA tenderness (R) - Neurological Exam Neurological exam: Present: alert, oriented X3 - Psychiatric Psychiatric exam: Present: normal affect, normal mood - Skin Skin exam: Present: normal color, other (breast on right side has dark discoloration which pt believes is new) Results - Labs CBC & BMP: 01/29/17 02:52 01/29/17 02:52 Lab Results: I have reviewed the past 24 hour labs
[2017-01-29] MEDS ORDERED: SODIUM POLYSTYRENE SULFATE 15 GM/60 ML BOTTLE PO STA (13:24)
[2017-01-29] MEDS: HEPARIN 5,000 UNIT/1 ML VIAL SUBCUT SCH ×2 (13:53→21:03)
--- NOTE | 2017-01-29 15:55 | Nephrology Consult Note ---
History of Present Illness Chief complaint: ARF History of present illness: Ms. Doyle is a 76 year old female with several chronic medical problems including chronic renal insufficiency. Her baseline creatinine in September was less than 2. Renal function was noted to be worse at the time of this admission. She was also hyperkalemic. She presented with a three-week history of generalized weakness. She's had decreased appetite and weight loss. She has a history of breast cancer and was scheduled to have a mammogram later this month to reevaluate. Home Medications Medication Instructions Recorded Confirmed Type Oxycodone HCl/Acetaminophen 1 tablet PO Q6HR PRN 07/18/15 01/28/17 History [Percocet 10-325 mg Tablet] Albuterol Sulfate [Proair HFA] 2 puffs INH Q4-6H PRN 12/31/15 01/28/17 History Albuterol Tab [Proventil Tab] 2 mg PO DAILY 08/06/16 01/28/17 History Carvedilol [Coreg] 25 mg PO BID 08/06/16 01/28/17 History Isosorbide Mononitrate [Isosorbide 30 mg PO DAILY 08/06/16 01/28/17 History Mononitrate ER] Cyanocobalamin Inj [Vitamin B12 1,000 mcg IM Q30D 01/28/17 01/28/17 History Inj] Esomeprazole Magnesium 40 mg PO DAILY 01/28/17 01/28/17 History [Esomeprazole] Furosemide Tab [Lasix Tab] 40.5 mg PO DAILY 01/28/17 01/28/17 History Venlafaxine HCl [Venlafaxine HCl 75 mg PO DAILY 01/28/17 01/28/17 History ER] Zolpidem Tartrate [Ambien] 10 mg PO BEDTIME PRN 01/28/17 01/28/17 History hydrOXYzine HCL TAB [Atarax Tab] 25 mg PO TID PRN 01/28/17 01/28/17 History Allergies Allergy/AdvReac Type Severity Reaction Status Date / Time No Known Allergies Allergy Verified 01/28/17 13:27 Medical,Surgical,& Family Hx - Medical History Cardio: History of: Aneurysm (AAA REPAIR), Cardiac Dysrhythmia, CHF, CAD, Hypertension, Valvular Heart Disease, Cardiovascular Problems No history of: Cerebrovascular Disease, Congenital Heart Disease, [place], Pacemaker, PVD Psychological: History of: Depression No history of: Anxiety Disorders, ADHD, Behavior Problems, Bipolar Disorder, Previous Suicide Attempt, Psychiatric/Substance Abuse Tx, Schizophrenia, Violent Behavior, Psychiatric Problems HEENT: History of: 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), Dental Problems, HEENT Problems (nose bleeds times 2-3 weeks) No history of: Ear Problem, Glaucoma, Oral Cancer Endocrine: No history of: Adrenal Disease, Diabetes Mellitus (IDDM), Diabetes Mellitus ( NIDDM), Dyslipidemia, Thyroid Disorder, Endocrine Cancer, Endocrine Problems Rheumatology: History of;: Gout, Rheumatoid Arthritis, Rheumatological Problems No history of;: Fibromyalgia, Myasthenia Gravis, Psoriasis, Sjogrens, Systemic Lupus Erythematosus Respiratory: History of: Bronchitis, COPD, Obstructive Sleep Apnea (wears o2 per nc continuously), Pneumonia No history of: Asthma, Intubation, Pulmonary Embolism, Pulmonary Hypertension , Lung Cancer Renal: History of: Renal Failure (chronic), Renal Problems No history of: Renal (Kidney) Cancer, Dialysis Genitourinary: History of: Kidney Stones, Recurring Urinary Tract Infections, Problems (incontinence) No history of: Bladder Problem, Genitourinary Cancer Gastrointestinal: History of: Diverticulitis/ Diverticulosis, GERD, Hemorrhoids No history of: Bowel Obstruction, Clostridium Difficile, Crohn's Disease, Esophageal Varices, Gastrointestinal Bleed, Hematochezia, Hepatitis, Liver Problems, Pancreatitis, Polyps, Ulcerative Colitis, Gastrointestinal Cancer Musculoskeletal: History of: Amputation, Back/Neck Problems (slipped disk in back), Musculoskeletal Problems (Chronic low back pain) No history of: Degenerative Disk Disease, Herniated Disk, Osteoporosis, Musculoskeletal Cancer Hematology: No history of: Anemia, Blood Transfusion Reaction, Bleeding Problems, Clotting Problems, Sickle Cell Disease, Hematologic Cancer, Blood Disorders Reproductive: History of: Breast Cancer No history of: Abnormal Pap Smear, Endometriosis, Ectopic , Ovarian Cysts, Complication, Sexually Transmitted Disorders, Reproductive Cancer, Reproductive Problems Other: History of: Cancer (breast cancer) No history of: Anesthesia Reactions, Anaphylaxis, Eczema, HIV, Malignant Hyperthermia, MRSA, Vancomycin-Resistant Enterococci, Skin Problems, Miscellaneous Medical Problems - Surgical History Cardiac Surgeries: Sugical HX of: Cardiac Catheterization (heart valve replacement), Cardiac Surgery (valve replacement), Vascular Access Devices ( heart stent in approximately 4 years ago) Patient Denies: Femoral-Popliteal Bypass Graft, Carotid Endarterectomy, Internal Defibrillator Thoracic Surgeries: Patient denies;: Kidney (Renal Surgery), Lithotripsy, Nephrectomy, Organ Transplant, Lobectomy Neurologic Surgeries: Patient denies: Neurologic Surgery HEENT Surgeries: Patient denies: Carotid Endarterectomy, Eye Surgery, Thyroid Surgery, Tonsilectomy & Adenoidectomy Abdominal Surgeries: Surgical HX of: Abdominal Surgery, Cholecystectomy, Colonoscopy, Hernia Repair Patient denies: Appendectomy, Gastric Bypass Surgery, EGD, Splenectomy Reproductive Surgeries: Surgical HX of;: Gynecologic Surgery Patient denies;: Section, Cystoscopy, Dilation and Curettage, Genitourinary Surgery, Hysterectomy, Tubal Ligation Orthopedic Surgeries: Surgical HX of;: Implanted Devices (heart stent and aneurysm repair) Patient denies;: Orthopedic Surgery, Spinal Surgery, Total Hip Replacement, Total Knee Replacement - Family History Family History: Reports;: Family Cancer (materal aunt, grandmother, grandfather , daughter), Family Diabetes (sister), Family Heart Disease (daughter), Family Hypertension ("The whole family has high blood pressure."), Family Stroke ( daughter) Denies;: Family Anesthesia Reaction, Family Psychiatric Problems - Social History Smoking Status: Former smoker Frequency of Alcohol Use: None Type of Drug Use: None Review of Systems 12 point system: reviewed and no additional remarkable complaints except as stated Exam - Vital Signs Vital signs: Period Temp Pulse Resp BP Sys/Benjamin Pulse Ox Last 24 Hr 96.9 F-99.4 F 58-69 16-18 120-162/65-87 90-96 Exam: Gen.: Alert and oriented x3. ENT: Pupils equal round reactive to light. EOMs intact. Mucous membranes dry Neck: Supple. No JVD or bruit. Cardiovascular: Regular rate and rhythm. No murmur rub or gallop Lungs: Clear Abdomen: Soft. Nontender. Positive bowel sounds. No organomegaly Extremities: No edema Results - Labs CBC & BMP: 01/29/17 02:52 01/29/17 02:52 Assessment and Plan (1) Acute on chronic renal failure Status: Acute Assessment and plan: 76-year-old woman admitted with: * CRF 3 * ARF. She is volume depleted. Agree with IV fluid * Hyperkalemia. Improved * Weight loss and anorexia. She is being evaluated for possible recurrence or metastasis of breast cancer * Prosthetic aortic valve * CAD * Hypertension * COPD Current Visit: No (2) COPD (chronic obstructive pulmonary disease) Status: Acute Current Visit: Yes (3) History of breast cancer Status: Acute Current Visit: Yes (4) Generalized weakness Status: Acute Current Visit: Yes (5) Hyperkalemia Status: Acute Current Visit: Yes (6) Bronchitis Status: Acute Current Visit: No (7) Generalized weakness Status: Acute Current Visit: No (8) H/O aortic valve replacement Status: Chronic Current Visit: No (9) Hypertension Status: Chronic Current Visit: No Qualifiers: Hypertension type: essential hypertension Qualified Code(s): I10 - Essential (primary) hypertension
[2017-01-29] MEDS: cefTRIAXone 1,000 MG in SODIUM CHLORIDE 0.9% 100 ML IV SCH (16:54)
[2017-01-29] MEDS: AZITHROMYCIN INJ 500 MG in SODIUM CHLORIDE 0.9% 250 ML IV SCH (20:17)
[2017-01-29] MEDS: ZALEPLON 5 MG CAPSULE PO PRN (20:18)
[2017-01-29] MEDS: hydrOXYzine HCL 25 MG TABLET PO PRN (22:17)
[2017-01-30] MEDS: HEPARIN 5,000 UNIT/1 ML VIAL SUBCUT SCH ×3 (04:49→21:32)
[2017-01-30 07:33] LABS: Basophils # 0.1 10*3/uL (0.0-0.2); Basophils % 0.9 % (0.0-0.8); Eosinophils # 0.3 10*3/uL (0.0-0.87); Eosinophils % 3.8 % (0.00-10.9); Hematocrit 31.7 VOL% (35.7-47.0); Hemoglobin 10.1 GM/DL (12.0-16.0); Immature Granulocytes % 0.9 %; Immature Granulocytes Absolute 0.06 #; Lymphocytes # 2.3 10*3/uL (1.4-4.0); Lymphocytes % 34.8 % (21.3-54.2); Mean Corpuscular HGB Conc 31.9 GM/DL (32-36); Mean Corpuscular Hemoglobin 29 PG (27-34); Mean Corpuscular Volume 91.6 FL (87-102); Mean Platelet Volume 11.4 FL (9.6-12.0); Monocytes # 0.5 10*3/uL (0.11-0.8); Monocytes % 7.8 % (1.7-12.7); Neutrophils # 3.5 10*3/uL (1.4-7.4); Neutrophils % 51.8 % (38.7-73.9); Platelet Count 90 T/CUMM (130-400); Red Blood Count 3.46 MC/CUMM (3.8-5.5); Red Cell Distribution Width 16.1 % (9.3-17.3); White Blood Count 6.7 T/CUMM (4-12)
[2017-01-30 08:08] LABS: Calcium 8.9 MG/DL (8.5-10.1); Osmolality,Calculated 287.1 MOS/KG (273-304); Potassium 4.8 MMOL/L (3.5-5.1)
[2017-01-30 08:25] LABS: Burr Cells 2+; Hypochromasia 1+
[2017-01-30] MEDS: FUROSEMIDE 40 MG TABLET PO SCH (08:43)
[2017-01-30] MEDS: CARVEDILOL 25 MG TABLET PO SCH ×2 (08:43→21:32)
[2017-01-30] MEDS: VENLAFAXINE XR 75 MG CAPSULE PO SCH (08:44)
[2017-01-30] MEDS: SODIUM CHLORIDE 0.9% 1,000 ML IV SCH ×3 (08:44→23:07)
[2017-01-30] MEDS: ISOSORBIDE MONONITRATE 30 MG TABLET PO SCH (08:44)
--- NOTE | 2017-01-30 11:01 | Nephrology Progress Note ---
Nephrology - PN: Subj Interval history: She feels better overall today. She does remain weak. She denies shortness of breath Exam (PN)-Nephrology - Vital Signs Vital signs: Period Temp Pulse Resp BP Sys/Benjamin Pulse Ox Last 24 Hr 97.8 F-99.3 F 65-82 18-20 129-189/72-86 90-92 Exam: ENT: Normal Cardiovascular: Regular rate and rhythm. No murmur rub or gallop Lungs: Clear Extremities: No edema - Lab 01/30/17 07:17 01/30/17 07:17 Most recent lab results Calcium 8.9 MG/DL (8.5-10.1) 01/30/17 07:17 Magnesium 2.0 MG/DL (1.8-2.4) 01/30/17 07:17 Assessment and Plan (1) Acute on chronic renal failure Status: Acute Assessment and plan: 76-year-old woman admitted with: * CRF 3 * ARF. Renal function has improved significantly with IV fluid. Rate will be decreased * Hyperkalemia. Resolved * Weight loss and anorexia. She is being evaluated for possible recurrence or metastasis of breast cancer * Prosthetic aortic valve * CAD * Hypertension * COPD Current Visit: No (2) COPD (chronic obstructive pulmonary disease) Status: Acute Current Visit: Yes (3) History of breast cancer Status: Acute Current Visit: Yes (4) Generalized weakness Status: Acute Current Visit: Yes (5) Hyperkalemia Status: Acute Current Visit: Yes (6) Bronchitis Status: Acute Current Visit: No (7) Generalized weakness Status: Acute Current Visit: No (8) H/O aortic valve replacement Status: Chronic Current Visit: No (9) Hypertension Status: Chronic Current Visit: No Qualifiers: Hypertension type: essential hypertension Qualified Code(s): I10 - Essential (primary) hypertension
--- NOTE | 2017-01-30 13:39 | Hospitalist Progress Note ---
Assessment and Plan (1) STUART (acute kidney injury) Status: Acute Current Visit: No (2) Hyperkalemia Status: Resolved Current Visit: Yes (3) Visual hallucinations Status: Acute Current Visit: Yes (4) Generalized weakness Status: Acute Current Visit: Yes (5) History of breast cancer Status: Chronic Current Visit: Yes Hospitalist: Subjective Interval history: Patient complaining of back pain this am. Creatinine is improving, hyperkalemia is resolved. Nephrology assisting. Oncology consulted. Exam - Constitutional Vitals: Period Temp Pulse Resp BP Sys/Benjamin Pulse Ox Last 24 Hr 97.8 F-99.3 F 64-82 18-20 124-189/74-86 90-92 General appearance: over weight - Head Head exam: Present: normocephalic, atraumatic - Eye Eye exam: Present: EOMI Pupils: Present: GORDY - ENT ENT exam: Present: normal exam - Neck Neck exam: Present: normal inspection - Respiratory Respiratory exam: Present: clear to auscultation bilaterally. Absent: rhonchi, wheezes - Cardiovascular Cardiovascular exam: Present: regular rate and rhythm - GI/Abdominal GI/Abdominal exam: Present: normal bowel sounds, soft. Absent: tenderness, rebound - Extremities Exam Extremities exam: Present: normal inspection - Back Exam Back exam: Present: normal inspection - Neurological Exam Neurological exam: Present: alert, oriented X3 - Psychiatric Psychiatric exam: Present: normal affect, normal mood - Skin Skin exam: Present: warm, intact Results - Labs CBC & BMP: 01/30/17 07:17 01/30/17 07:17
[2017-01-30] MEDS: cefTRIAXone 1,000 MG in SODIUM CHLORIDE 0.9% 100 ML IV SCH (16:19)
[2017-01-31] MEDS: SODIUM CHLORIDE 0.9% 1,000 ML IV SCH ×3 (02:58→17:28)
[2017-01-31 06:24] LABS: Basophils % 0.5 % (0.0-0.8); Eosinophils # 0.8 10*3/uL (0.0-0.87); Eosinophils % 12.5 % (0.00-10.9); Hematocrit 29.6 VOL% (35.7-47.0); Hemoglobin 9.5 GM/DL (12.0-16.0); Immature Granulocytes % 1.2 %; Immature Granulocytes Absolute 0.07 #; Lymphocytes # 2.1 10*3/uL (1.4-4.0); Lymphocytes % 35.4 % (21.3-54.2); Mean Corpuscular HGB Conc 32.1 GM/DL (32-36); Mean Corpuscular Hemoglobin 29 PG (27-34); Mean Corpuscular Volume 90.8 FL (87-102); Mean Platelet Volume 11.8 FL (9.6-12.0); Monocytes # 0.7 10*3/uL (0.11-0.8); Monocytes % 10.8 % (1.7-12.7); Neutrophils # 2.4 10*3/uL (1.4-7.4); Neutrophils % 39.6 % (38.7-73.9); Platelet Count 93 T/CUMM (130-400); Red Blood Count 3.26 MC/CUMM (3.8-5.5); Red Cell Distribution Width 16.2 % (9.3-17.3)
[2017-01-31] MEDS: HEPARIN 5,000 UNIT/1 ML VIAL SUBCUT SCH ×3 (06:25→14:15)
[2017-01-31 06:50] LABS: Calcium 8.6 MG/DL (8.5-10.1); Magnesium 1.8 MG/DL (1.8-2.4); Osmolality,Calculated 292.6 MOS/KG (273-304); Potassium 3.9 MMOL/L (3.5-5.1)
[2017-01-31 06:52] LABS: Burr Cells Slight; Elliptocytes Few; Eosinophils 17 % (0-10); Hypochromasia 1+; Lymphocytes 32 % (20-55); Platelet Estimate Decreased; Segmented Neutrophils 44 % (50-85); Total Cells Counted 100
--- NOTE | 2017-01-31 08:49 | Oncology Progress Note ---
Oncology Subjective PN Interval history: Patient seen and examined. I have followed Ms. Doyle in the past for breast cancer. She was admitted with renal failure. She really needs some additional x-rays but I would like to see her serum creatinine improved first. She has an ultrasound of her right breast pending. She has extreme darkening of the right breast with thickening of the skin and increasing density of the breast tissue. This may be from radiation or it may be from recurrent cancer or infection. Additional physical findings include no submandibular, cervical, supraclavicular or axillary adenopathy. She has no left breast masses. Her lungs are clear. Her heart rhythm is regular with a grade 4/6 somewhat harsh systolic ejection murmur with a loud S2 heard best in the second right intercostal space adjacent to the sternum. Tumor markers are pending. She really needs to keep follow-up with me for this and if her renal function improves I would favor proceeding with CTs of the chest, abdomen and pelvis with contrast. I am not sure when she had her last mammogram either. Exam - Constitutional Vitals: Period Temp Pulse Resp BP Sys/Benjamin Pulse Ox Last 24 Hr 97.6 F-98.7 F 58-73 18-22 124-194/76-82 91-99 Results - Labs CBC & BMP: 01/31/17 05:35 01/31/17 05:35
[2017-01-31] MEDS: FUROSEMIDE 40 MG TABLET PO SCH (09:02)
[2017-01-31] MEDS: ISOSORBIDE MONONITRATE 30 MG TABLET PO SCH (09:02)
[2017-01-31] MEDS: CARVEDILOL 25 MG TABLET PO SCH ×2 (09:02→20:51)
[2017-01-31] MEDS: VENLAFAXINE XR 75 MG CAPSULE PO SCH (09:03)
--- NOTE | 2017-01-31 11:55 | Mammography Report ---
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 Patient is inpatient at [facility] with swelling of the right breast Technical: Craniocaudal mediolateral oblique imaging obtained with CAD imaging Findings: Right breast : There is marked thickening of the breast scanned tissue measuring up to 9 mm thick in the retroareolar region. There is an area of scarring in the upper outer aspect the breast. There are calcifications in the upper outer aspect the breast. There is some microcalcifications also present scattered in the breast. Heterogeneously dense breast parenchyma. No obvious axillary adenopathy otherwise noted. Left breast : Scattered secretion calcifications are present. Mostly fatty replaced breast parenchyma. No skin thickening or nipple retraction architecture distortion or asymmetric densities present. No axillary adenopathy. Impression: 1. Marked thickening of the breast parenchyma with an area of architectural distortion in the upper outer aspect the right breast with prior history of invasive cancer with some abnormal calcifications that suggest possible recurrent neoplasm. With the breast wall thickening inflammatory cell carcinoma would have to be considered in the differential. 2. Dystrophic calcifications at the previous biopsy site present, this could represent recurrent neoplasm or dystrophic fat necrosis calcifications. MRI of the breast may be beneficial for further evaluation of this patient. However this may be inappropriate with the patient having history of renal failure Critical test findings discussed with Dr. Elam. Attempt at the biopsy of the breast with ultrasound guidance may also be beneficial and surgical consultation. Punch biopsy of the skin may be beneficial as well with findings suggest inflammatory carcinoma breast wall thickening Patient information is entered into a reminder system with target due date for the next mammogram BI-RADS category: Category 5, highly suggestive of malignancy Breast density: Type II Exam: , US breast RT Date: 01/31/2017 Indication: Right breast mass history of invasive ductal carcinoma with prior radiation therapy with discoloration and thickening of the breast parenchyma Comparison: None Findings: Ultrasound imaging was obtained with real-time ultrasonography performed. There is a area of abnormality in the 10:00 radial over the previous surgical site with some echogenic shadowing and dystrophic calcifications suspected on routine mammogram. This area measures up to approximately 1.4cm by approximately 9 mm. The examination also reveals a second area of abnormality at the 2:00 radial measure approximately 6 x 4 mm. Impression: 1. 2 mass lesions in the right breast, one lesion located at 2:00 and a second lesion at the 10:00 radial o'clock radial with associated calcifications and echogenic shadowing at the previous biopsy site at the 10:00 radial. BI-RADS Category 5 highly suggestive of malignancy Critical test report called to Dr. Elam at the time of dictation PROCEDURE INTERPRETED AT [facility] DEPARTMENT OF RADIOLOGY Final Report Signed by: Dr. Emir Gooden
--- NOTE | 2017-01-31 15:49 | Hospitalist Progress Note ---
Assessment and Plan (1) STUART (acute kidney injury) Status: Acute Current Visit: No (2) Hyperkalemia Status: Resolved Current Visit: Yes (3) Visual hallucinations Status: Acute Current Visit: Yes (4) Generalized weakness Status: Acute Current Visit: Yes (5) History of breast cancer Status: Chronic Current Visit: Yes Hospitalist: Subjective Interval history: No acute events overnight. Creatinine continues to improve. Mammogram ordered. Oncology following. Exam - Constitutional Vitals: Period Temp Pulse Resp BP Sys/Benjamin Pulse Ox Last 24 Hr 97.6 F-98.7 F 58-73 18-22 138-194/76-86 95-100 General appearance: normal weight - Head Head exam: Present: normocephalic, atraumatic - Eye Eye exam: Present: EOMI Pupils: Present: GORDY - ENT ENT exam: Present: normal exam - Neck Neck exam: Present: normal inspection - Respiratory Respiratory exam: Present: clear to auscultation bilaterally. Absent: rhonchi, wheezes - Cardiovascular Cardiovascular exam: Present: regular rate and rhythm - GI/Abdominal GI/Abdominal exam: Present: normal bowel sounds, soft. Absent: tenderness, rebound - Extremities Exam Extremities exam: Present: normal inspection - Back Exam Back exam: Present: normal inspection - Neurological Exam Neurological exam: Present: alert - Psychiatric Psychiatric exam: Present: normal affect, normal mood - Skin Skin exam: Present: warm, intact Results - Labs CBC & BMP: 01/31/17 05:35 01/31/17 05:35
--- NOTE | 2017-01-31 17:06 | Oncology Progress Note ---
Oncology Subjective PN Interval history: Case discussed with radiologist, Dr. Gooden, who read the mammogram. The next step may be surgical biopsy of the breast abnormality. That is what he recommends. Her original tumor was a T1 N1mi M0 breast cancer that was estrogen and progesterone receptor positive and HER-2/cecy negative. What she is stable, this could be arranged either inpatient or outpatient. Exam - Constitutional Vitals: Period Temp Pulse Resp BP Sys/Benjamin Pulse Ox Last 24 Hr 97.6 F-98.7 F 54-73 16-22 138-194/72-86 95-100 Results - Labs CBC & BMP: 01/31/17 05:35 01/31/17 05:35
[2017-01-31] MEDS: ENOXAPARIN 30 MG/0.3 ML SYRINGE SUBCUT SCH (17:27)
[2017-01-31] MEDS: cefTRIAXone 1,000 MG in SODIUM CHLORIDE 0.9% 100 ML IV SCH (17:29)
[2017-01-31] MEDS: ZALEPLON 5 MG CAPSULE PO PRN (21:06)
[2017-02-01] MEDS: SODIUM CHLORIDE 0.9% 1,000 ML IV SCH ×4 (03:00→23:53)
--- NOTE | 2017-02-01 06:57 | Oncology Progress Note ---
Oncology Subjective PN Interval history: Consult placed to [facility] for breast biopsy. According to Dr. Gooden, the mammogram is strongly suggestive of recurrent breast cancer. If the patient improves enough to go home this could be scheduled outpatient. I have discussed this matter with Ms. Doyle. She understands that this may represent recurrent breast cancer. I ordered a CA 27.29 on this patient on Tuesday. The results are not back yet. Her serum creatinine is down to 1.5 which is about the lowest of seen. She has a history of chronic renal failure. It drops further, we can consider doing CTs with contrast but I expect we will end up ordering CTs without intravenous contrast. Exam - Constitutional Vitals: Period Temp Pulse Resp BP Sys/Benjamin Pulse Ox Last 24 Hr 97.6 F-98.5 F 54-66 16-20 140-160/61-86 95-100 Results - Labs CBC & BMP: 01/31/17 05:35 01/31/17 05:35
[2017-02-01 07:44] LABS: Calcium 8.5 MG/DL (8.5-10.1); Magnesium 1.7 MG/DL (1.8-2.4); Osmolality,Calculated 294.4 MOS/KG (273-304); Potassium 3.8 MMOL/L (3.5-5.1)
[2017-02-01 08:53] LABS: Basophils % 0.6 % (0.0-0.8); Eosinophils # 1.2 10*3/uL (0.0-0.87); Eosinophils % 16.6 % (0.00-10.9); Hematocrit 29.8 VOL% (35.7-47.0); Hemoglobin 8.9 GM/DL (12.0-16.0); Immature Granulocytes Absolute 0.07 #; Lymphocytes # 2.4 10*3/uL (1.4-4.0); Lymphocytes % 33.4 % (21.3-54.2); Mean Corpuscular HGB Conc 29.9 GM/DL (32-36); Mean Corpuscular Hemoglobin 29 PG (27-34); Mean Corpuscular Volume 96.8 FL (87-102); Mean Platelet Volume 11.7 FL (9.6-12.0); Monocytes # 0.7 10*3/uL (0.11-0.8); Monocytes % 9.3 % (1.7-12.7); Neutrophils # 2.8 10*3/uL (1.4-7.4); Neutrophils % 39.1 % (38.7-73.9); Platelet Count 101 T/CUMM (130-400); Red Blood Count 3.08 MC/CUMM (3.8-5.5); Red Cell Distribution Width 16.7 % (9.3-17.3); White Blood Count 7.1 T/CUMM (4-12)
[2017-02-01] MEDS: ISOSORBIDE MONONITRATE 30 MG TABLET PO SCH (08:59)
[2017-02-01] MEDS: VENLAFAXINE XR 75 MG CAPSULE PO SCH (08:59)
[2017-02-01] MEDS: FUROSEMIDE 40 MG TABLET PO SCH (08:59)
[2017-02-01 09:12] LABS: Band Neutrophils 1 % (0-10); Burr Cells Slight; Eosinophils 22 % (0-10); Hypochromasia 1+; Lymphocytes 29 % (20-55); Ovalocytes Slight; Platelet Estimate Decreased; Segmented Neutrophils 44 % (50-85); Total Cells Counted 100
[2017-02-01] MEDS ORDERED: CARVEDILOL 12.5 MG TABLET PO SCH (10:00)
--- NOTE | 2017-02-01 11:02 | General Surgery Consult Note ---
Assessment and Plan (1) Breast mass in female Status: Acute Assessment and plan: The patient has new lesions of the right breast as well as significant weight loss and anorexia with history of breast cancer. There is concern for recurrent breast cancer with recommendation for biopsy of 2 lesions identified on mammography as well as punch biopsy of the skin of the right breast with a skin changes. Patient has a completed medical history with recent acute kidney injury with volume depletion likely associated with complications from her had decreased appetite. These appear to be resolving. Biopsy is warranted - US guided vs surgically. Will follow with recommendations from Dr. Linares. Current Visit: Yes (2) History of breast cancer Status: Chronic Current Visit: Yes History of Present Illness Chief complaint: Breast lesion History of present illness: Ms. Doyle is a 76 year old female with past medical history of COPD on home O2 , AAA status post stent placement, bioprosthetic aortic valve replacement, and CAD currently admitted with acute kidney failure and encephalopathy which have improved significantly with new findings of suspected recurrent breast cancer of the right breast. The patient's reliability of chronicity is questionable and she states that she is "old," and not really confident when her symptoms changed. She is competent been greater than 1 month that she is noted increased swelling and hardness of the right breast with increased discoloration. To me she reports that the discoloration was not present postradiation prior. Regardless, mammogram was performed while on this inpatient stay with identification of 2 lesions of the right breast at 10:00. Recommendation for biopsy as well as for punch biopsy of skin with concern for inflammatory breast pathology were recommended. In addition, the patient notes a 100 pound weight loss over the past several months with decreased appetite. She denies fever, chills, rigors, night sweats, changes in cough, wheeze, dyspnea, abdominal pain, hemoptysis, hematochezia, melena, hematemesis or hematuria. No metastatic workup has been completed at this time. Cancer marker CA-15-3 and CA-27.29 are pending. Home Medications Medication Instructions Recorded Confirmed Type Oxycodone HCl/Acetaminophen 1 tablet PO Q6HR PRN 07/18/15 01/28/17 History [Percocet 10-325 mg Tablet] Albuterol Sulfate [Proair HFA] 2 puffs INH Q4-6H PRN 12/31/15 01/28/17 History Albuterol Tab [Proventil Tab] 2 mg PO DAILY 08/06/16 01/28/17 History Carvedilol [Coreg] 25 mg PO BID 08/06/16 01/28/17 History Isosorbide Mononitrate [Isosorbide 30 mg PO DAILY 08/06/16 01/28/17 History Mononitrate ER] Cyanocobalamin Inj [Vitamin B12 1,000 mcg IM Q30D 01/28/17 01/28/17 History Inj] Esomeprazole Magnesium 40 mg PO DAILY 01/28/17 01/28/17 History [Esomeprazole] Furosemide Tab [Lasix Tab] 40.5 mg PO DAILY 01/28/17 01/28/17 History Venlafaxine HCl [Venlafaxine HCl 75 mg PO DAILY 01/28/17 01/28/17 History ER] Zolpidem Tartrate [Ambien] 10 mg PO BEDTIME PRN 01/28/17 01/28/17 History hydrOXYzine HCL TAB [Atarax Tab] 25 mg PO TID PRN 01/28/17 01/28/17 History Allergies Allergy/AdvReac Type Severity Reaction Status Date / Time No Known Allergies Allergy Verified 01/28/17 13:27 Medical,Surgical,& Family Hx - Medical History Cardio: History of: Aneurysm (AAA REPAIR), Cardiac Dysrhythmia, CHF, CAD, Hypertension, Valvular Heart Disease, Cardiovascular Problems No history of: Cerebrovascular Disease, Congenital Heart Disease, NH, Pacemaker, PVD Psychological: History of: Depression No history of: Anxiety Disorders, ADHD, Behavior Problems, Bipolar Disorder, Previous Suicide Attempt, Psychiatric/Substance Abuse Tx, Schizophrenia, Violent Behavior, Psychiatric Problems HEENT: History of: 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), Dental Problems, HEENT Problems (nose bleeds times 2-3 weeks) No history of: Ear Problem, Glaucoma, Oral Cancer Endocrine: No history of: Adrenal Disease, Diabetes Mellitus (IDDM), Diabetes Mellitus ( NIDDM), Dyslipidemia, Thyroid Disorder, Endocrine Cancer, Endocrine Problems Rheumatology: History of;: Gout, Rheumatoid Arthritis, Rheumatological Problems No history of;: Fibromyalgia, Myasthenia Gravis, Psoriasis, Sjogrens, Systemic Lupus Erythematosus Respiratory: History of: Bronchitis, COPD, Obstructive Sleep Apnea (wears o2 per nc continuously), Pneumonia No history of: Asthma, Intubation, Pulmonary Embolism, Pulmonary Hypertension , Lung Cancer Renal: History of: Renal Failure (chronic), Renal Problems No history of: Renal (Kidney) Cancer, Dialysis Genitourinary: History of: Kidney Stones, Recurring Urinary Tract Infections, Problems (incontinence) No history of: Bladder Problem, Genitourinary Cancer Gastrointestinal: History of: Diverticulitis/ Diverticulosis, GERD, Hemorrhoids No history of: Bowel Obstruction, Clostridium Difficile, Crohn's Disease, Esophageal Varices, Gastrointestinal Bleed, Hematochezia, Hepatitis, Liver Problems, Pancreatitis, Polyps, Ulcerative Colitis, Gastrointestinal Cancer Musculoskeletal: History of: Amputation, Back/Neck Problems (slipped disk in back), Musculoskeletal Problems (Chronic low back pain) No history of: Degenerative Disk Disease, Herniated Disk, Osteoporosis, Musculoskeletal Cancer Hematology: No history of: Anemia, Blood Transfusion Reaction, Bleeding Problems, Clotting Problems, Sickle Cell Disease, Hematologic Cancer, Blood Disorders Reproductive: History of: Breast Cancer No history of: Abnormal Pap Smear, Endometriosis, Ectopic , Ovarian Cysts, Complication, Sexually Transmitted Disorders, Reproductive Cancer, Reproductive Problems Other: History of: Cancer (breast cancer) No history of: Anesthesia Reactions, Anaphylaxis, Eczema, HIV, Malignant Hyperthermia, MRSA, Vancomycin-Resistant Enterococci, Skin Problems, Miscellaneous Medical Problems - Surgical History Cardiac Surgeries: Sugical HX of: Cardiac Catheterization (heart valve replacement), Cardiac Surgery (valve replacement), Vascular Access Devices ( heart stent in approximately 4 years ago) Patient Denies: Femoral-Popliteal Bypass Graft, Carotid Endarterectomy, Internal Defibrillator Thoracic Surgeries: Patient denies;: Kidney (Renal Surgery), Lithotripsy, Nephrectomy, Organ Transplant, Lobectomy Neurologic Surgeries: Patient denies: Neurologic Surgery HEENT Surgeries: Patient denies: Carotid Endarterectomy, Eye Surgery, Thyroid Surgery, Tonsilectomy & Adenoidectomy Abdominal Surgeries: Surgical HX of: Abdominal Surgery, Cholecystectomy, Colonoscopy, Hernia Repair Patient denies: Appendectomy, Gastric Bypass Surgery, EGD, Splenectomy Reproductive Surgeries: Surgical HX of;: Gynecologic Surgery Patient denies;: Section, Cystoscopy, Dilation and Curettage, Genitourinary Surgery, Hysterectomy, Tubal Ligation Orthopedic Surgeries: Surgical HX of;: Implanted Devices (heart stent and aneurysm repair) Patient denies;: Orthopedic Surgery, Spinal Surgery, Total Hip Replacement, Total Knee Replacement - Family History Family History: Reports;: Family Cancer (materal aunt, grandmother, grandfather , daughter), Family Diabetes (sister), Family Heart Disease (daughter), Family Hypertension ("The whole family has high blood pressure."), Family Stroke ( daughter) Denies;: Family Anesthesia Reaction, Family Psychiatric Problems - Social History Smoking Status: Former smoker Frequency of Alcohol Use: None Type of Drug Use: None - Constitutional Constitutional: Present: as per HPI - Cardiovascular Cardiovascular: Absent: chest pain at rest, chest pain with activity, dyspnea, orthopnea, palpitations - Respiratory Respiratory: Present: as per HPI. Absent: cough, hemoptysis, dyspnea on exertion, wheezing - Gastrointestinal Gastrointestinal: Present: as per HPI. Absent: abdominal pain, bloating, constipation, hematemesis, hematochezia, loose stools, melena, odynophagia - Genitourinary Genitourinary: Absent: dysuria, hematuria - Endocrine Endocrine: Absent: cold intolerance, heat intolerance Hematologic/Lymphatic: Absent: easy bleeding, easy bruising Exam - Constitutional Vitals: Period Temp Pulse Resp BP Sys/Benjamin Pulse Ox Last 24 Hr 97.6 F-98.5 F 54-66 16-20 140-160/61-83 95-98 General appearance: no acute distress - Eye Eye exam: Absent: conjunctival injection, scleral icterus - Respiratory Respiratory exam: Present: clear to auscultation bilaterally - Cardiovascular Cardiovascular exam: Present: RRR - Breasts Breasts: other (Right breast with thickening and darkening of the skin the periareolar region approximately a centimeter radius around with a peau d' orange appearance of the breasts skin. Thickening changes in the area was noted without discharge. This is described on mammography are not readily palpable on my exam.) - GI/Abdominal GI/Abdominal exam: Present: normal bowel sounds, soft. Absent: distended, organomegaly - Extremities Exam Extremities exam: Absent: calf tenderness, edema - Neurological Exam Neurological exam: Present: alert, oriented X3 - Skin Skin exam: Present: normal color, warm Results - Labs CBC & BMP: 02/01/17 06:37 02/01/17 06:37 Labs: See a 53 and CA 27.29 pending
[2017-02-01] MEDS: CARVEDILOL 25 MG TABLET PO SCH ×2 (11:38→20:17)
[2017-02-01] MEDS: ACETAMINOPHEN 325 MG TABLET PO PRN (11:43)
--- NOTE | 2017-02-01 13:09 | Hospitalist Progress Note ---
Assessment and Plan (1) STUART (acute kidney injury) Status: Acute Current Visit: No (2) Hyperkalemia Status: Resolved Current Visit: Yes (3) Visual hallucinations Status: Acute Current Visit: Yes (4) Generalized weakness Status: Acute Current Visit: Yes (5) History of breast cancer Status: Chronic Current Visit: Yes Hospitalist: Subjective Interval history: No acute events overnight. No complaints today. Creatinine continues to improve. Mammogram suspicious for recurrence of breast cancer. Surgery has been consulted to evaluate for biopsies. Physical therapy consulted. Discharge pending pt and timing of biopsy. Exam - Constitutional Vitals: Period Temp Pulse Resp BP Sys/Benjamin Pulse Ox Last 24 Hr 97.6 F-98.5 F 54-65 16-20 140-185/61-74 95-98 General appearance: normal weight - Head Head exam: Present: normocephalic, atraumatic - Eye Eye exam: Present: EOMI Pupils: Present: GORDY - ENT ENT exam: Present: normal exam - Neck Neck exam: Present: normal inspection - Respiratory Respiratory exam: Present: clear to auscultation bilaterally. Absent: rhonchi, wheezes - Cardiovascular Cardiovascular exam: Present: regular rate and rhythm - GI/Abdominal GI/Abdominal exam: Present: normal bowel sounds, soft. Absent: tenderness, rebound - Extremities Exam Extremities exam: Present: normal inspection - Back Exam Back exam: Present: normal inspection - Neurological Exam Neurological exam: Present: alert, oriented X3 - Psychiatric Psychiatric exam: Present: normal affect, normal mood - Skin Skin exam: Present: warm, intact Results - Labs CBC & BMP: 02/01/17 06:37 02/01/17 06:37
[2017-02-01] MEDS: ENOXAPARIN 30 MG/0.3 ML SYRINGE SUBCUT SCH (15:27)
[2017-02-01] MEDS: cefTRIAXone 1,000 MG in SODIUM CHLORIDE 0.9% 100 ML IV SCH (15:30)
[2017-02-01] MEDS: ZALEPLON 5 MG CAPSULE PO PRN (20:17)
[2017-02-02 06:11] LABS: Basophils % 0.5 % (0.0-0.8); Eosinophils # 1.4 10*3/uL (0.0-0.87); Eosinophils % 18.5 % (0.00-10.9); Hemoglobin 8.7 GM/DL (12.0-16.0); Immature Granulocytes % 1.1 %; Immature Granulocytes Absolute 0.08 #; Lymphocytes # 2.5 10*3/uL (1.4-4.0); Lymphocytes % 33.8 % (21.3-54.2); Mean Corpuscular HGB Conc 31.1 GM/DL (32-36); Mean Corpuscular Hemoglobin 30 PG (27-34); Mean Corpuscular Volume 95.9 FL (87-102); Mean Platelet Volume 11.4 FL (9.6-12.0); Monocytes # 0.7 10*3/uL (0.11-0.8); Monocytes % 9.4 % (1.7-12.7); Neutrophils # 2.7 10*3/uL (1.4-7.4); Neutrophils % 36.7 % (38.7-73.9); Red Blood Count 2.92 MC/CUMM (3.8-5.5); White Blood Count 7.5 T/CUMM (4-12)
[2017-02-02 06:14] LABS: Platelet Count 99 T/CUMM (130-400)
[2017-02-02 06:33] LABS: Burr Cells 1+; Eosinophils 15 % (0-10); Lymphocytes 28 % (20-55); Platelet Estimate Decreased; Segmented Neutrophils 51 % (50-85); Target Cells Slight; Total Cells Counted 100
[2017-02-02 06:38] LABS: Calcium 8.3 MG/DL (8.5-10.1); Magnesium 1.6 MG/DL (1.8-2.4); Osmolality,Calculated 290.6 MOS/KG (273-304); Potassium 3.9 MMOL/L (3.5-5.1)
--- NOTE | 2017-02-02 07:54 | Oncology Progress Note ---
Oncology Subjective PN Interval history: I appreciate Dr. CORRAL's input. We will asked Dr. Lamar Tejeda to review the mammogram to see if needle biopsy is feasible. Dr. Gooden did not think so. She is oriented and alert. She is willing to undergo evaluation for this apparent recurrent breast cancer. Her initial tumor was stage I and was strongly estrogen and progesterone receptor positive and HER-2/cecy negative. Exam - Constitutional Vitals: Period Temp Pulse Resp BP Sys/Benjamin Pulse Ox Last 24 Hr 97.7 F-99.2 F 53-67 14-20 144-185/71-83 93-100 Results - Labs CBC & BMP: 02/02/17 05:54 02/02/17 05:54
[2017-02-02] MEDS: SODIUM CHLORIDE 0.9% 1,000 ML IV SCH ×2 (09:00→16:23)
[2017-02-02] MEDS: CARVEDILOL 25 MG TABLET PO SCH ×2 (09:01→20:28)
[2017-02-02] MEDS: FUROSEMIDE 40 MG TABLET PO SCH (09:01)
[2017-02-02] MEDS: VENLAFAXINE XR 75 MG CAPSULE PO SCH (09:01)
[2017-02-02] MEDS: ISOSORBIDE MONONITRATE 30 MG TABLET PO SCH (09:01)
[2017-02-02] MEDS: hydrOXYzine HCL 25 MG TABLET PO PRN ×2 (09:01→16:24)
[2017-02-02] MEDS ORDERED: MAGNESIUM SULF RIDER 4 GM in PREMIX 1 EACH IV PRN (10:57)
[2017-02-02] MEDS ORDERED: MAGNESIUM SULF RIDER 2 GM in PREMIX 1 EACH IV PRN (10:57)
[2017-02-02] MEDS ORDERED: AMOXICILLIN 500 MG CAPSULE ONE (15:07)
[2017-02-02] MEDS: cefTRIAXone 1,000 MG in SODIUM CHLORIDE 0.9% 100 ML IV SCH (16:22)
--- NOTE | 2017-02-02 16:23 | Mammography Report ---
PUNCH BIOPSY OF THE SKIN OF THE RIGHT BREAST DATE: February 02, 2017 HISTORY: 76-year-old female status post right lumpectomy in 2008. She is also status post radiation therapy. She presents with a recent history of thickening and swelling of the right breast. She presents today for punch biopsy of the skin of the right breast. COMPARISON: The previous January 31, 2017 bilateral diagnostic mammogram and right breast ultrasound were reviewed. Ultrasound of the right breast was performed and there is diffuse swelling with prominent subcutaneous lymphatics. The postsurgical scar is noted at the 10:00 position but has decreased in size when compared to the previous mammograms from July 10, 2013, February 14, 2012 and July 27, 2011. The skin of the breast is diffusely thickened with the skin measuring up to 8 mm in the upper inner quadrant. The plan is to perform a punch biopsy of the skin of the right breast. PROCEDURE: The punch biopsy procedure was discussed with the patient and written informed consent was obtained. The patient was given 2 g of amoxicillin p.o. prior to the procedure because of previous heart valve replacement. The skin of the right upper inner quadrant was cleansed in usual sterile fashion. The ultrasound probe was also prepared in the usual sterile fashion. 1% lidocaine was used for local anesthesia. A 4 mm curette was used to obtain a single full-thickness sample of skin. Hemostasis was achieved and a Band-Aid and an ice pack were applied to the biopsy site. The patient did well and no immediate complications occurred. The sample was sent to the lab for histologic analysis. Postbiopsy breast care instructions were discussed with the patient and were also sent back with her to the inpatient floor. The above was discussed with Geena for Dr. Elam. IMPRESSION: Status post punch biopsy of the skin of the right breast. Final report is pending histology. PROCEDURE INTERPRETED AT [facility] DEPARTMENT OF RADIOLOGY Final Report Signed by: Dr. Lamar Tejeda
[2017-02-02] MEDS: ENOXAPARIN 40 MG/0.4 ML SYRINGE SUBCUT SCH (16:24)
--- NOTE | 2017-02-02 17:21 | Hospitalist Progress Note ---
Assessment and Plan (1) STUART (acute kidney injury) Status: Acute Current Visit: No (2) Hyperkalemia Status: Resolved Current Visit: Yes (3) Visual hallucinations Status: Acute Current Visit: Yes (4) Generalized weakness Status: Acute Current Visit: Yes (5) History of breast cancer Status: Chronic Current Visit: Yes Hospitalist: Subjective Interval history: No acute events overnight. Breast biopsy performed today. Patient doing well. Creatinine much improved. Working on swing bed placement. Exam - Constitutional Vitals: Period Temp Pulse Resp BP Sys/Benjamin Pulse Ox Last 24 Hr 97.7 F-99.2 F 53-67 14-20 144-184/66-86 93-100 General appearance: normal weight - Head Head exam: Present: normocephalic, atraumatic - Eye Eye exam: Present: EOMI Pupils: Present: GORDY - ENT ENT exam: Present: normal exam - Neck Neck exam: Present: normal inspection - Respiratory Respiratory exam: Present: clear to auscultation bilaterally. Absent: rhonchi, wheezes - Cardiovascular Cardiovascular exam: Present: regular rate and rhythm - GI/Abdominal GI/Abdominal exam: Present: normal bowel sounds, soft. Absent: tenderness, rebound - Extremities Exam Extremities exam: Present: normal inspection - Back Exam Back exam: Present: normal inspection - Neurological Exam Neurological exam: Present: alert, oriented X3 - Psychiatric Psychiatric exam: Present: normal affect, normal mood - Skin Skin exam: Present: warm, intact Results - Labs CBC & BMP: 02/02/17 05:54 02/02/17 05:54
[2017-02-02] MEDS: ZALEPLON 5 MG CAPSULE PO PRN (20:28)
[2017-02-03] MEDS: SODIUM CHLORIDE 0.9% 1,000 ML IV SCH ×3 (00:41→17:15)
[2017-02-03 06:01] LABS: Basophils % 0.5 % (0.0-0.8); Eosinophils % 14.6 % (0.00-10.9); Hemoglobin 8.6 GM/DL (12.0-16.0); Immature Granulocytes % 0.8 %; Immature Granulocytes Absolute 0.05 #; Lymphocytes # 2.6 10*3/uL (1.4-4.0); Lymphocytes % 39.5 % (21.3-54.2); Mean Corpuscular HGB Conc 30.7 GM/DL (32-36); Mean Corpuscular Hemoglobin 29 PG (27-34); Mean Corpuscular Volume 94.6 FL (87-102); Mean Platelet Volume 12.1 FL (9.6-12.0); Monocytes # 0.7 10*3/uL (0.11-0.8); Monocytes % 9.8 % (1.7-12.7); Neutrophils # 2.3 10*3/uL (1.4-7.4); Neutrophils % 34.8 % (38.7-73.9); Platelet Count 95 T/CUMM (130-400); Red Blood Count 2.96 MC/CUMM (3.8-5.5); Red Cell Distribution Width 16.9 % (9.3-17.3); White Blood Count 6.7 T/CUMM (4-12)
[2017-02-03 06:07] LABS: Calcium 8.4 MG/DL (8.5-10.1); Magnesium 2.1 MG/DL (1.8-2.4); Osmolality,Calculated 288.7 MOS/KG (273-304); Potassium 3.7 MMOL/L (3.5-5.1)
[2017-02-03 06:14] LABS: Band Neutrophils 1 % (0-10); Eosinophils 10 % (0-10); Lymphocytes 47 % (20-55); Platelet Estimate Decreased; Polychromasia Slight; Segmented Neutrophils 39 % (50-85); Target Cells Slight; Total Cells Counted 100
--- NOTE | 2017-02-03 07:38 | Oncology Progress Note ---
Oncology Subjective PN Interval history: I was told that Dr. Tejeda was actually able to biopsy this lady's breast yesterday in spite of Dr. Gooden saying that it could not be done. I understand that Dr. Tejeda has a different opinion about the mammogram report as well. The breast cancer antigen results are finally back and are normal at 33.6. I am going to arrange for a follow-up office visit. I understand she is going to a swing bed. If this turns out to be breast cancer, Dr. Linares is already aware of her and has been consulted. In view of the fact that her serum creatinine is normal, I have ordered a CT of her chest, abdomen and pelvis with contrast to further assess her in case the biopsy reveals cancer. She habitually drinks less liquids than she should and she habitually runs a serum creatinine that is mildly elevated so this may be our only opportunity to do the CT scans. Exam - Constitutional Vitals: Period Temp Pulse Resp BP Sys/Benjamin Pulse Ox Last 24 Hr 97.7 F-98.9 F 60-76 18-20 148-184/57-86 93-100 Results - Labs CBC & BMP: 02/03/17 05:28 02/03/17 05:28
[2017-02-03] MEDS: FUROSEMIDE 40 MG TABLET PO SCH (09:16)
[2017-02-03] MEDS: hydrOXYzine HCL 25 MG TABLET PO PRN (09:16)
[2017-02-03] MEDS: ISOSORBIDE MONONITRATE 30 MG TABLET PO SCH (09:16)
[2017-02-03] MEDS: VENLAFAXINE XR 75 MG CAPSULE PO SCH (09:16)
[2017-02-03] MEDS: CARVEDILOL 25 MG TABLET PO SCH ×2 (09:16→21:08)
--- NOTE | 2017-02-03 14:15 | CT Report ---
Referring physician: Anna Sotelo MD EXAM: CT chest, abdomen and pelvis with contrast DATE: 02/03/2017 COMPARISON: CT abdomen and pelvis, 07/01/2016, CT chest, 04/29/2009, mammogram 01/31/2017 REASON: Breast cancer TECHNIQUE: Axial images of the chest, abdomen and pelvis were obtained after administration of 100 cc of Omnipaque 350 IV contrast. Oral contrast was also administered. Sagittal and coronal reformatted images were provided. Total DLP was 1125.90 mGy*cm. FINDINGS:: The heart is enlarged with prior median sternotomy. The ascending aorta measures 45 mm in diameter with no evidence of aortic dissection or definite pulmonary emboli. Coronary artery calcifications are noted. Mediastinal, left hilar, and right axillary nodes which are borderline in size to minimally enlarged. Limited evaluation of the breasts with asymmetric skin thickening in the right breast and irregular densities. Recent mammogram demonstrated 2 right breast masses. Diffuse groundglass opacities in the lungs. In the posterior right upper lobe, several adjacent noncalcified nodular densities. The largest finding measures 10 mm and abuts the pleura. In the right lower lobe, similar findings are noted far inferiorly and posteriorly with the largest finding measuring 9 mm. Additional smaller findings are noted in the lungs with additional atelectasis and persistent pleural calcification at the right lung base. Elongation of the right lobe of the liver with no masses. Prior cholecystectomy with stable minimal dilatation of the bile ducts. The spleen, pancreas, and adrenal glands are stable in appearance. Cortical scarring in the kidneys with multiple renal cysts with no definite renal or ureteral calculi. Aortobiiliac stent graft noted with infrarenal AAA measuring 45 mm on both exams. No adjacent adenopathy. The stomach is distended with food/secretions. Small hiatal hernia with fat containing periumbilical hernia. Diverticulosis of the colon with no evidence of diverticulitis, appendicitis, free air, or free fluid. Atrophic uterus with the right ovary minimally larger in size. No definite urinary bladder pathology identified. Persistent minimal anterolisthesis of L4 in relationship to L5 with degenerative changes. IMPRESSION: Status post median sternotomy with persistent dilatation of the thoracic aorta, coronary artery calcifications, and stable 45 mm infrarenal AAA with aortobiiliac stent graft. Indeterminate mediastinal, left hilar, and right axillary nodes which are minimally larger in size. Progressive skin thickening with right breast masses in patient with carcinoma of the breast. Interval development of noncalcified pulmonary nodules are consistent with probable metastatic disease. Prior cholecystectomy of cortical scarring in the kidneys and multiple renal cysts. Small hiatal hernia with the stomach more distended with food/secretions. Residual fat-containing periumbilical hernia with diverticulosis of the colon. The right ovary is slightly larger in size. Grade 1 spondylolisthesis at L4-L5. The CT exam was performed using one or more of the following dose reduction techniques: Automated exposure control and adjustment of the mA and/or kV according to patient size. PROCEDURE INTERPRETED AT [facility] DEPARTMENT OF RADIOLOGY Final Report Signed by: Dr. Lindsey Samson
--- NOTE | 2017-02-03 14:44 | Hospitalist Progress Note ---
Assessment and Plan (1) STUART (acute kidney injury) Status: Resolved Assessment and plan: Creatinine back to normal with IV hydration. CT C/A/P today with contrast Will continue IV fluids and monitor in am Current Visit: No (2) Hyperkalemia Status: Resolved Current Visit: Yes (3) Visual hallucinations Status: Chronic Current Visit: Yes (4) Generalized weakness Status: Chronic Current Visit: Yes (5) History of breast cancer Status: Chronic Current Visit: Yes Hospitalist: Subjective Interval history: Reports abdominal pain today. CT C/A/P for metastatic work-up. Will continue IV hydration and monitor creatinine in the am. S/p biopsy of right breast. Waiting on swing bed placement. Exam - Constitutional Vitals: Period Temp Pulse Resp BP Sys/Benjamin Pulse Ox Last 24 Hr 97.2 F-98.9 F 60-76 18-18 148-184/57-86 93-99 General appearance: over weight - Head Head exam: Present: normocephalic, atraumatic - Eye Eye exam: Present: EOMI Pupils: Present: GORDY - ENT ENT exam: Present: normal exam - Neck Neck exam: Present: normal inspection - Respiratory Respiratory exam: Present: clear to auscultation bilaterally. Absent: rhonchi, wheezes - Cardiovascular Cardiovascular exam: Present: regular rate and rhythm - GI/Abdominal GI/Abdominal exam: Present: normal bowel sounds, soft. Absent: tenderness, rebound - Extremities Exam Extremities exam: Present: normal inspection - Back Exam Back exam: Present: normal inspection - Neurological Exam Neurological exam: Present: alert - Psychiatric Psychiatric exam: Present: normal affect, normal mood - Skin Skin exam: Present: warm, intact Results - Labs CBC & BMP: 02/03/17 05:28 02/03/17 05:28 Specialty Discharge - Follow Up or Referrals Follow up with: Wolfgang Elam MD [Physician] - 02/17/17 10:15 am
[2017-02-03] MEDS ORDERED: BISACODYL 5 MG TABLET PO ONE (15:03)
[2017-02-03] MEDS: ENOXAPARIN 40 MG/0.4 ML SYRINGE SUBCUT SCH (17:14)
[2017-02-03] MEDS: cefTRIAXone 1,000 MG in SODIUM CHLORIDE 0.9% 100 ML IV SCH (17:14)
[2017-02-04] MEDS: SODIUM CHLORIDE 0.9% 1,000 ML IV SCH ×3 (01:41→18:02)
[2017-02-04 07:14] LABS: Basophils % 0.6 % (0.0-0.8); Hemoglobin 8.9 GM/DL (12.0-16.0); Immature Granulocytes % 0.9 %; Immature Granulocytes Absolute 0.06 #; Lymphocytes # 2.1 10*3/uL (1.4-4.0); Lymphocytes % 29.5 % (21.3-54.2); Mean Corpuscular HGB Conc 31.8 GM/DL (32-36); Mean Corpuscular Hemoglobin 30 PG (27-34); Mean Corpuscular Volume 94.3 FL (87-102); Mean Platelet Volume 11.9 FL (9.6-12.0); Monocytes # 0.8 10*3/uL (0.11-0.8); Monocytes % 10.8 % (1.7-12.7); Neutrophils # 3.1 10*3/uL (1.4-7.4); Neutrophils % 44.2 % (38.7-73.9); Platelet Count 91 T/CUMM (130-400); Red Blood Count 2.97 MC/CUMM (3.8-5.5); Red Cell Distribution Width 17.6 % (9.3-17.3)
[2017-02-04 07:31] LABS: Calcium 8.5 MG/DL (8.5-10.1); Magnesium 1.9 MG/DL (1.8-2.4); Osmolality,Calculated 287.7 MOS/KG (273-304); Potassium 3.8 MMOL/L (3.5-5.1)
[2017-02-04 07:52] LABS: Eosinophils 11 % (0-10); Lymphocytes 24 % (20-55); Segmented Neutrophils 61 % (50-85); Total Cells Counted 100
[2017-02-04 07:53] LABS: Hypochromasia 1+; Microcytosis 1+; Platelet Estimate Decreased; Polychromasia Slight; Target Cells Slight
--- NOTE | 2017-02-04 08:06 | Oncology Progress Note ---
Oncology Subjective PN Interval history: This is a lady with a prior history of breast cancer who has now undergone punch biopsy for suspected recurrence of her breast cancer. A biopsy has been done and the results are pending. CTs of the chest, abdomen and pelvis were done yesterday. It turns out that the patient has noncalcified pulmonary nodules as well as right axillary adenopathy suggesting metastatic disease. In addition, she is reported to have an enlarged ovary. We checked a CEA level and its back and is normal. An ovarian cancer antigen is pending. She has a long history of elevated serum creatinines. Yesterday was the first time that I can remember her serum creatinine being 1.0. Following the contrast material, her serum creatinine today is 1.1 which is still good. I will recheck it tomorrow. She is followed applying for swing bed but I think the prudent thing to do is to follow her through the weekend and try to establish whether or not this is metastatic breast cancer. It has been taking a very long time to get results back from pathology so I do not have any idea how long we will have to wait for the tissue diagnosis to return on the biopsy that was performed on February 02. I am rounding this weekend so I will be looking for it. In addition, she still having abdominal pain. Exam - Constitutional Vitals: Period Temp Pulse Resp BP Sys/Benjamin Pulse Ox Last 24 Hr 97.3 F-98.9 F 53-71 17-18 145-162/66-91 96-100 Results - Labs CBC & BMP: 02/04/17 04:58 02/04/17 04:58 Specialty Discharge - Follow Up or Referrals Follow up with: Wolfgang Elam MD [Physician] - 02/17/17 10:15 am
[2017-02-04] MEDS: ISOSORBIDE MONONITRATE 30 MG TABLET PO SCH (09:56)
[2017-02-04] MEDS: VENLAFAXINE XR 75 MG CAPSULE PO SCH (09:56)
[2017-02-04] MEDS: FUROSEMIDE 40 MG TABLET PO SCH (09:56)
[2017-02-04] MEDS: CARVEDILOL 25 MG TABLET PO SCH ×2 (09:56→20:23)
--- NOTE | 2017-02-04 14:09 | Hospitalist Progress Note ---
Assessment and Plan - Time spent with patient Time spent with patient: Greater than 30 minutes (1) Acute on chronic renal failure Status: Acute Current Visit: No (2) Dehydration Status: Acute Current Visit: No (3) Generalized weakness Status: Acute Current Visit: No (4) History of breast cancer Status: Chronic Current Visit: Yes (5) Breast mass in female Status: Acute Assessment and plan: We will discontinue IV fluid hydration to avoid fluid overload. Discontinue IV antibiotics as there is no sign of ongoing infection. Avoid nephrotoxic medication, monitor renal function. Follow pathology report, if placement is found prior to pathology reports being available, will discharge to outpatient oncology follow-up. Placement arraignment still ongoing, discharge once placement is found. Current Visit: Yes Hospitalist: Subjective Interval history: 76-year-old lady who will be monitored for acute kidney injury and metastatic workup for breast cancer. She had a biopsy of the right breast on pathology report is still pending. She is also awaiting placement because of deconditioning. Placement has not been found. She has no new complaints today. Serum creatinine is 1.1 today Exam - Constitutional Vitals: Period Temp Pulse Resp BP Sys/Benjamin Pulse Ox Last 24 Hr 97.8 F-98.9 F 53-71 17-18 145-162/66-95 98-100 Results - Labs CBC & BMP: 02/04/17 04:58 02/05/17 04:24 Specialty Discharge - Follow Up or Referrals Follow up with: Wolfgang Elam MD [Physician] - 02/17/17 10:15 am
[2017-02-04] MEDS: ENOXAPARIN 40 MG/0.4 ML SYRINGE SUBCUT SCH (17:58)
[2017-02-04] MEDS: ZALEPLON 5 MG CAPSULE PO PRN (20:23)
[2017-02-05 05:53] LABS: Calcium 8.7 MG/DL (8.5-10.1); Osmolality,Calculated 286.8 MOS/KG (273-304); Potassium 3.6 MMOL/L (3.5-5.1)
[2017-02-05] MEDS: VENLAFAXINE XR 75 MG CAPSULE PO SCH (08:46)
[2017-02-05] MEDS: FUROSEMIDE 40 MG TABLET PO SCH (08:46)
[2017-02-05] MEDS: CARVEDILOL 25 MG TABLET PO SCH ×2 (08:46→20:26)
[2017-02-05] MEDS: ISOSORBIDE MONONITRATE 30 MG TABLET PO SCH (08:46)
[2017-02-05] MEDS: ACETAMINOPHEN 325 MG TABLET PO PRN ×2 (08:48→12:59)
[2017-02-05] MEDS: SODIUM CHLORIDE 0.9% 1,000 ML IV SCH ×2 (08:51→09:59)
--- NOTE | 2017-02-05 10:12 | Oncology Progress Note ---
Oncology Subjective PN Interval history: A biopsy was done of this patient's breast on February 02. I still cannot locate a pathology report from this. I reviewed her CT of the chest, abdomen and pelvis. She has very suspicious nodules in her lung allison suggesting metastatic disease. I am considering empirically starting her on hormone therapy while we are awaiting the biopsy report since it can take an inordinate period of time for it to return. Her blood work today includes a serum creatinine is 1.0. I am ordering another CBC for tomorrow. Her hemoglobin was 8.9 yesterday and there is no indication that she had one today. Exam - Constitutional Vitals: Period Temp Pulse Resp BP Sys/Benjamin Pulse Ox Last 24 Hr 97.7 F-99.2 F 54-69 14-18 141-162/70-95 96-100 Results - Labs CBC & BMP: 02/04/17 04:58 02/05/17 04:24 Specialty Discharge - Follow Up or Referrals Follow up with: Wolfgang Elam MD [Physician] - 02/17/17 10:15 am
--- NOTE | 2017-02-05 10:36 | Hospitalist Progress Note ---
Assessment and Plan - Time spent with patient Time spent with patient: Greater than 30 minutes (1) Acute on chronic renal failure Status: Acute Current Visit: No (2) Dehydration Status: Acute Current Visit: No (3) Generalized weakness Status: Acute Current Visit: No (4) History of breast cancer Status: Chronic Current Visit: Yes (5) Breast mass in female Status: Acute Assessment and plan: We will discontinue IV fluid hydration since renal function has returned to normal Discontinue IV antibiotics as there is no sign of ongoing infection. Avoid nephrotoxic medication in future, monitor renal function. Follow pathology report and oncology follow-up. Patient does not want swing bed placement on discharge, will have to review this with patient's family. Current Visit: Yes Hospitalist: Subjective Interval history: No new events overnight. Pathology report is still pending. I see that patient had stool occult blood positive on the , with ask gastroenterology to see what she is inhaled. No fever Exam - Constitutional Vitals: Period Temp Pulse Resp BP Sys/Benjamin Pulse Ox Last 24 Hr 97.7 F-99.2 F 54-69 14-18 141-162/70-95 96-100 General appearance: normal weight - Head Head exam: Present: normal inspection, normocephalic, atraumatic - Eye Eye exam: Present: EOMI. Absent: scleral icterus - ENT ENT exam: Present: normal external ear exam - Respiratory Respiratory exam: Present: clear to auscultation bilaterally. Absent: chest wall tenderness - Cardiovascular Cardiovascular exam: Present: regular rate and rhythm - GI/Abdominal GI/Abdominal exam: Present: normal bowel sounds, soft. Absent: ascites, distended, tenderness - Neurological Exam Neurological exam: Present: alert, oriented X3 - Skin Skin exam: Present: normal color, warm, dry Results - Labs CBC & BMP: 02/04/17 04:58 02/05/17 04:24 Lab Results: I have reviewed the past 24 hour labs Specialty Discharge - Follow Up or Referrals Follow up with: Wolfgang Elam MD [Physician] - 02/17/17 10:15 am
[2017-02-05] MEDS: ENOXAPARIN 40 MG/0.4 ML SYRINGE SUBCUT SCH (16:48)
[2017-02-06 05:13] LABS: Basophils % 0.7 % (0.0-0.8); Eosinophils # 0.9 10*3/uL (0.0-0.87); Eosinophils % 14.7 % (0.00-10.9); Hematocrit 28.4 VOL% (35.7-47.0); Immature Granulocytes % 0.5 %; Immature Granulocytes Absolute 0.03 #; Lymphocytes # 2.3 10*3/uL (1.4-4.0); Lymphocytes % 39.8 % (21.3-54.2); Mean Corpuscular HGB Conc 31.7 GM/DL (32-36); Mean Corpuscular Hemoglobin 30 PG (27-34); Mean Corpuscular Volume 93.1 FL (87-102); Mean Platelet Volume 10.8 FL (9.6-12.0); Monocytes # 0.6 10*3/uL (0.11-0.8); Monocytes % 10.7 % (1.7-12.7); Neutrophils # 1.9 10*3/uL (1.4-7.4); Neutrophils % 33.6 % (38.7-73.9); Platelet Count 102 T/CUMM (130-400); Red Blood Count 3.05 MC/CUMM (3.8-5.5); Red Cell Distribution Width 17.8 % (9.3-17.3); White Blood Count 5.8 T/CUMM (4-12)
[2017-02-06 06:14] LABS: Eosinophils 15 % (0-10); Hypochromasia 1+; Lymphocytes 46 % (20-55); Segmented Neutrophils 35 % (50-85); Total Cells Counted 100
[2017-02-06 06:15] LABS: Microcytosis 1+; Ovalocytes Few; Platelet Estimate Decreased
[2017-02-06] MEDS: FUROSEMIDE 40 MG TABLET PO SCH (08:15)
[2017-02-06] MEDS: CARVEDILOL 25 MG TABLET PO SCH ×2 (08:15→20:08)
[2017-02-06] MEDS: VENLAFAXINE XR 75 MG CAPSULE PO SCH (08:15)
[2017-02-06] MEDS: ISOSORBIDE MONONITRATE 30 MG TABLET PO SCH (08:16)
--- NOTE | 2017-02-06 09:31 | Gastrointestinal Consult Note ---
Assessment and Plan - Time spent with patient Time spent with patient: Greater than 30 minutes (1) Positive fecal occult blood test Status: Acute Current Visit: Yes (2) Other specified counseling Status: Acute Current Visit: Yes History of Present Illness History of present illness: Ms. Doyle is a 76 year old female Home Medications Medication Instructions Recorded Confirmed Type Oxycodone HCl/Acetaminophen 1 tablet PO Q6HR PRN 07/18/15 01/28/17 History [Percocet 10-325 mg Tablet] Albuterol Sulfate [Proair HFA] 2 puffs INH Q4-6H PRN 12/31/15 01/28/17 History Albuterol Tab [Proventil Tab] 2 mg PO DAILY 08/06/16 01/28/17 History Carvedilol [Coreg] 25 mg PO BID 08/06/16 01/28/17 History Isosorbide Mononitrate [Isosorbide 30 mg PO DAILY 08/06/16 01/28/17 History Mononitrate ER] Cyanocobalamin Inj [Vitamin B12 1,000 mcg IM Q30D 01/28/17 01/28/17 History Inj] Esomeprazole Magnesium 40 mg PO DAILY 01/28/17 01/28/17 History [Esomeprazole] Furosemide Tab [Lasix Tab] 40.5 mg PO DAILY 01/28/17 01/28/17 History Venlafaxine HCl [Venlafaxine HCl 75 mg PO DAILY 01/28/17 01/28/17 History ER] Zolpidem Tartrate [Ambien] 10 mg PO BEDTIME PRN 01/28/17 01/28/17 History hydrOXYzine HCL TAB [Atarax Tab] 25 mg PO TID PRN 01/28/17 01/28/17 History Allergies Allergy/AdvReac Type Severity Reaction Status Date / Time No Known Allergies Allergy Verified 01/28/17 13:27 Medical,Surgical,& Family Hx - Medical History Cardio: History of: Aneurysm (AAA REPAIR), Cardiac Dysrhythmia, CHF, CAD, Hypertension, Valvular Heart Disease, Cardiovascular Problems No history of: Cerebrovascular Disease, Congenital Heart Disease, [place], Pacemaker, PVD Psychological: History of: Depression No history of: Anxiety Disorders, ADHD, Behavior Problems, Bipolar Disorder, Previous Suicide Attempt, Psychiatric/Substance Abuse Tx, Schizophrenia, Violent Behavior, Psychiatric Problems HEENT: History of: 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), Dental Problems, HEENT Problems (nose bleeds times 2-3 weeks) No history of: Ear Problem, Glaucoma, Oral Cancer Endocrine: No history of: Adrenal Disease, Diabetes Mellitus (IDDM), Diabetes Mellitus ( NIDDM), Dyslipidemia, Thyroid Disorder, Endocrine Cancer, Endocrine Problems Rheumatology: History of;: Gout, Rheumatoid Arthritis, Rheumatological Problems No history of;: Fibromyalgia, Myasthenia Gravis, Psoriasis, Sjogrens, Systemic Lupus Erythematosus Respiratory: History of: Bronchitis, COPD, Obstructive Sleep Apnea (wears o2 per nc continuously), Pneumonia No history of: Asthma, Intubation, Pulmonary Embolism, Pulmonary Hypertension , Lung Cancer Renal: History of: Renal Failure (chronic), Renal Problems No history of: Renal (Kidney) Cancer, Dialysis Genitourinary: History of: Kidney Stones, Recurring Urinary Tract Infections, Problems (incontinence) No history of: Bladder Problem, Genitourinary Cancer Gastrointestinal: History of: Diverticulitis/ Diverticulosis, GERD, Hemorrhoids No history of: Bowel Obstruction, Clostridium Difficile, Crohn's Disease, Esophageal Varices, Gastrointestinal Bleed, Hematochezia, Hepatitis, Liver Problems, Pancreatitis, Polyps, Ulcerative Colitis, Gastrointestinal Cancer Musculoskeletal: History of: Amputation, Back/Neck Problems (slipped disk in back), Musculoskeletal Problems (Chronic low back pain) No history of: Degenerative Disk Disease, Herniated Disk, Osteoporosis, Musculoskeletal Cancer Hematology: No history of: Anemia, Blood Transfusion Reaction, Bleeding Problems, Clotting Problems, Sickle Cell Disease, Hematologic Cancer, Blood Disorders Reproductive: History of: Breast Cancer No history of: Abnormal Pap Smear, Endometriosis, Ectopic , Ovarian Cysts, Complication, Sexually Transmitted Disorders, Reproductive Cancer, Reproductive Problems Other: History of: Cancer (breast cancer) No history of: Anesthesia Reactions, Anaphylaxis, Eczema, HIV, Malignant Hyperthermia, MRSA, Vancomycin-Resistant Enterococci, Skin Problems, Miscellaneous Medical Problems - Surgical History Cardiac Surgeries: Sugical HX of: Cardiac Catheterization (heart valve replacement), Cardiac Surgery (valve replacement), Vascular Access Devices ( heart stent in approximately 4 years ago) Patient Denies: Femoral-Popliteal Bypass Graft, Carotid Endarterectomy, Internal Defibrillator Thoracic Surgeries: Patient denies;: Kidney (Renal Surgery), Lithotripsy, Nephrectomy, Organ Transplant, Lobectomy Neurologic Surgeries: Patient denies: Neurologic Surgery HEENT Surgeries: Patient denies: Carotid Endarterectomy, Eye Surgery, Thyroid Surgery, Tonsilectomy & Adenoidectomy Abdominal Surgeries: Surgical HX of: Abdominal Surgery, Cholecystectomy, Colonoscopy, Hernia Repair Patient denies: Appendectomy, Gastric Bypass Surgery, EGD, Splenectomy Reproductive Surgeries: Surgical HX of;: Gynecologic Surgery Patient denies;: Section, Cystoscopy, Dilation and Curettage, Genitourinary Surgery, Hysterectomy, Tubal Ligation Orthopedic Surgeries: Surgical HX of;: Implanted Devices (heart stent and aneurysm repair) Patient denies;: Orthopedic Surgery, Spinal Surgery, Total Hip Replacement, Total Knee Replacement - Family History Family History: Reports;: Family Cancer (materal aunt, grandmother, grandfather , daughter), Family Diabetes (sister), Family Heart Disease (daughter), Family Hypertension ("The whole family has high blood pressure."), Family Stroke ( daughter) Denies;: Family Anesthesia Reaction, Family Psychiatric Problems - Social History Smoking Status: Former smoker Frequency of Alcohol Use: None Type of Drug Use: None Exam - Constitutional Vitals: Period Temp Pulse Resp BP Sys/Benjamin Pulse Ox Last 24 Hr 97.3 F-98.6 F 54-64 14-20 130-164/63-85 96-100 Results - Labs CBC & BMP: 02/06/17 04:56 02/05/17 04:24 Specialty Discharge - Follow Up or Referrals Follow up with: oWlfgang Elam MD [Physician] - 02/17/17 10:15 am Note Addendum: PLEASE NOTE -- automatic citation of patient information is unavoidable in this electronic note. I have made a reasonable effort to review the information cited , but it is not a part of my evaluation, impression, or recommendation unless specifically discussed in the dictated text that follows. As well, voice recognition software was used in the creation of this clinical note. Reasonable effort was made to identify and correct gross errors. Despite proofreading, errors in science analyst may be present, including nonsense verbiage at times. If you encounter such an error, please contact me at for discussion and correction. -- Farhan Chief complaint: positive fecal occult blood testing History of present illness: This is a new patient, a 76-year-old female seen by consultation for evaluation of positive fecal occult blood testing. The patient is admitted to the hospitalist service under the care of Dr. Byers with a primary diagnosis of acute on chronic renal failure. The patient was admitted on January 28 with primary complaint of generalized weakness. Evaluation at that time revealed acute kidney injury along with multiple comorbid conditions. During her admission, fecal occult blood testing was accomplished in the setting of chronic anemia and was one plus positive. The patient has not noticed overt gastrointestinal bleeding. The patient has not had colonoscopy in the past. After an extensive discussion regarding the risks associated with colonoscopy and the relative risk of diagnosing colorectal cancer, the patient is fairly adamant she would like to go ahead colonoscopy. Patient denies fever, chills, night sweats, rigors, neck pain, visual changes, redness of the eyes, dysphagia, odynophagia, difficulty chewing, chest pain, nausea, vomiting, regurgitation, hematemesis, hematochezia, melena, proctalgia, dysuria, skin changes, temperature regulation issues, flushing, easy bleeding/ bruising, mental status change, numbness/weakness in the extremities, yellowing of the eyes/skin, cutaneous eruptions, family history of gastrointestinal cancer and colon polyps, and other complaints in general. Review of systems: 12 point review of systems was negative except as documented above. Outpatient medications: Coreg, albuterol, Pro error, Nexium, vitamin B12, Atarax , Ambien, Venlafaxine, Percocet, isosorbide mononitrate, Lasix Inpatient medications: Tylenol, Duoneb, Coreg, Colace, Lovenox, Lasix, [place], Atarax, isosorbide mononitrate, lactulose, magnesium sulfate, Zofran, Venlafaxine Past Medical History: abdominal aortic aneurysm, cardiac dysrhythmia, congestive heart failure, coronary artery disease, hypertension, valvular heart disease, depression, frequent nosebleeds, gout, rheumatoid arthritis, bronchitis , chronic obstructive pulmonary disease, obstructive sleep apnea, pneumonia, chronic kidney disease, kidney stones, recurrent urinary tract infection, urinary incontinence, diverticulitis/diverticulosis, gastroesophageal reflux disease, chronic back pain, prior reputation, breast cancer Social history: former tobacco. Negative alcohol Family history: no gastrointestinal cancers Physical examination: Vital Signs: Current vital signs reviewed and documented above. General Appearance: lying in bed. Comfortable. No apparent distress. Head: Normocephalic. Neck: Palpation of the neck revealed no abnormalities. Eyes: No scleral icterus. No scleral injection. No conjunctival pallor. Oral Cavity: Odor of breath was normal. No drooling was observed. Lips showed no abnormalities. Floor of the mouth showed no abnormalities. Pharynx: Oropharynx was normal. Lungs: Respiration rhythm and depth was normal. Cardiovascular: Heart rate and rhythm were normal. No murmurs were appreciated. Abdomen: abdomen was not distended. Abdominal palpation revealed no tenderness and no hepatosplenomegaly. Ascites was not discovered. Abdominal auscultation revealed positive bowel sounds. Musculoskeletal System: Musculoskeletal system was grossly normal. Neurological: level of consciousness was normal. Speech was normal. Skin: General appearance was normal. Color and pigmentation were normal. No skin lesions. Laboratory: white blood count 5.8, hemoglobin 9.0, hematocrit 28.4, platelets 102, CA 125 32 Radiology: CT of the chest abdomen and pelvis, January 28, 2017 -- right breast masses; pulmonary nodules consistent with metastatic disease; small hiatus hernia; diverticulosis coli Impressions: 1. Positive fecal occult blood testing -- in a technical sense this represents positive screening for colorectal cancer. While possible, it is unclear that diagnosis of a colorectal cancer will alter medical management of this patient given she is suffering from metastatic breast cancer along with multiple other comorbid conditions. Neither is it likely, given these comorbidities, that colorectal cancer or chronic bleeding in the gastrointestinal tract is responsible for her anemia. Understanding the significant risk associated with sedating this patient, I have counseled against colonoscopy at this time. Nonetheless, the patient is adamant she would like to pursue same as she intends to pursue further treatment of her breast cancer and wishes to know whether there is yet another problem. As Dr. García will be assuming gastrointestinal care for this patient tomorrow, I will defer to his expertise as to whether to recommend colonoscopy for this patient now or in the future. 2. Other specified counseling -- The patient was seen for greater than 30 minutes. The patient was counseled for greater than 50% of this time regarding differential diagnosis, likely diagnosis, diagnostic and therapeutic alternatives, risks/benefits/alternatives of medications and procedures, and plan of care generally. The patient expressed understanding and wishes to proceed. Recommendations: -- continued monitoring of hemoglobin and hematocrit with transfusion as indicated -- colonoscopy at the discretion of Dr. García -- thank you for this consultation. Dr. García will assume G.I. care for this patient tomorrow.
[2017-02-06] MEDS ORDERED: oxyCODONE/ACETAMINOPHEN 5-325 MG TABLET ONE (10:12)
[2017-02-06] MEDS: oxyCODONE/ACETAMINOPHEN 5-325 MG TABLET PO PRN ×2 (10:15→20:08)
--- NOTE | 2017-02-06 11:09 | Oncology Progress Note ---
Oncology Subjective PN Interval history: I have ordered Aromasin to be started while we are awaiting the biopsy report. This lady has suspected metastatic breast cancer as recurrence of stage I, estrogen and progesterone receptor positive breast cancer diagnosed in 2008. It was treated with lumpectomy, radiation and hormone therapy. The patient did not return for follow-up for an excessive period of time. It has been taking a very long time to get results back from pathology so I do not have any idea how long we will have to wait for the tissue diagnosis to return on the biopsy that was performed on February 02. We really need the pathology report back as soon as possible. Decisions have to be made about the pulmonary nodules and also about what treatment to institute. Exam - Constitutional Vitals: Period Temp Pulse Resp BP Sys/Benjamin Pulse Ox Last 24 Hr 97.3 F-98.6 F 54-64 14-20 130-164/63-85 96-100 Results - Labs CBC & BMP: 02/06/17 04:56 02/05/17 04:24 Specialty Discharge - Follow Up or Referrals Follow up with: Wolfgang Elam MD [Physician] - 02/17/17 10:15 am
--- NOTE | 2017-02-06 13:01 | Hospitalist Progress Note ---
Assessment and Plan - Time spent with patient Time spent with patient: Greater than 30 minutes (1) Acute on chronic renal failure Status: Acute Current Visit: No (2) Dehydration Status: Acute Current Visit: No (3) Generalized weakness Status: Acute Current Visit: No (4) History of breast cancer Status: Chronic Current Visit: Yes (5) Breast mass in female Status: Acute Assessment and plan: Avoid nephrotoxic medication in future because of her recent acute kidney injury , monitor renal function. Follow pathology report and oncology follow-up. Patient does not want swing bed placement on discharge, will have to review this with patient's family. Current Visit: Yes Hospitalist: Subjective Interval history: Clinically stable, awaiting pathology report which is still not available. Blood pressure slightly uncontrolled, will adjust her blood pressure medication. Exam - Constitutional Vitals: Period Temp Pulse Resp BP Sys/Benjamin Pulse Ox Last 24 Hr 97.3 F-98.6 F 54-64 14-20 130-164/63-85 96-100 Exam: General appearance: normal weight - Head Head exam: Present: normal inspection, normocephalic, atraumatic - Eye Eye exam: Present: EOMI. Absent: scleral icterus - ENT ENT exam: Present: normal external ear exam - Respiratory Respiratory exam: Present: clear to auscultation bilaterally. Absent: chest wall tenderness - Cardiovascular Cardiovascular exam: Present: regular rate and rhythm - GI/Abdominal GI/Abdominal exam: Present: normal bowel sounds, soft. Absent: ascites, distended, tenderness - Neurological Exam Neurological exam: Present: alert, oriented X3 - Skin Skin exam: Present: normal color, warm, dry Results - Labs CBC & BMP: Results - Labs CBC & BMP: 02/06/17 04:56 02/05/17 04:24 Lab Results: I have reviewed the past 24 hour labs Specialty Discharge - Follow Up or Referrals Follow up with: Wolfgang Elam MD [Physician] - 02/17/17 10:15 am
[2017-02-06] MEDS: EXEMESTANE 25 MG TABLET PO SCH (14:53)
[2017-02-06] MEDS: ENOXAPARIN 40 MG/0.4 ML SYRINGE SUBCUT SCH (16:08)
[2017-02-07] MEDS: oxyCODONE/ACETAMINOPHEN 5-325 MG TABLET PO PRN ×3 (07:09→23:33)
--- NOTE | 2017-02-07 07:23 | Oncology Progress Note ---
Oncology Subjective PN Interval history: A biopsy was done of this patient's breast on February 02. I still cannot locate a pathology report from this. If the biopsy from the patient's rest is negative for breast cancer, we will need to pursue additional investigation of the pulmonary nodules. The patient's CA 125 is 32, which is normal.. The breast cancer associated antigen is at upper limits of normal at 33.6. Her CEA level is less than 0.5. Actually, in the pathology report finally got posted on this patient electronic medical record on February 07. Dr. Lamar Tejeda received the report the same day and called me about it. She had wanted to talk to the patient about possible additional biopsies. I will discuss with with the patient when she returns for her office visit with me. Exam - Constitutional Vitals: Period Temp Pulse Resp BP Sys/Benjamin Pulse Ox Last 24 Hr 97.5 F-98.3 F 51-64 12-20 137-160/64-79 94-100 Results - Labs CBC & BMP: 02/08/17 09:09 02/09/17 05:20 Specialty Discharge - Follow Up or Referrals Follow up with: Wolfgang Elam MD [Physician] - 02/17/17 10:15 am
[2017-02-07] MEDS: EXEMESTANE 25 MG TABLET PO SCH (09:20)
[2017-02-07] MEDS: ISOSORBIDE MONONITRATE 30 MG TABLET PO SCH (09:20)
[2017-02-07] MEDS: CARVEDILOL 25 MG TABLET PO SCH ×2 (09:20→21:31)
[2017-02-07] MEDS: FUROSEMIDE 40 MG TABLET PO SCH (09:20)
[2017-02-07] MEDS: VENLAFAXINE XR 75 MG CAPSULE PO SCH (09:20)
--- NOTE | 2017-02-07 09:25 | Gastrointestinal Progress Note ---
<DeshawnTaylor garcias Olga Lidia - Last Filed: 02/07/17 09:20> Assessment and Plan (1) Positive fecal occult blood test Status: Acute Assessment and plan: 02/07-reports of stools positive for occult blood on admission with history of chronic renal failure and anemia. No reported history of transfusions in the past. No colonoscopy in the past. History of PUD reported by son. Hemoglobin 11.2 on admission, down at 9 today in absence of overt bleeding. Plan an addendum to follow by Dr. García per Current Visit: Yes Gastroenterology - PN: Subj Interval history: CC: Anemia, positive stools for blood Pt is seen awake and alert, son is present during visit. Pt was admitted with report of positive stools for blood and history of anemia. SHe has a history of chronic renal failure as well as breast cancer. SHe is followed by Dr Elam for this and has had a recent biopsy done for questionable reoccurrence with pathology pending for this. Her tumor markers are normal at this time with noted upper limits of breast cancer antigen level. Pt son states she has not had colonoscopy in the past but has had an EGD many years ago with history of gastric ulcer that he can recall. He denies a family history of colon cancer. Pt denies any abdominal pain, nausea or vomiting. Denies any recent weight loss. She denies fever or chills. Her hemoglobin is at 9 today, which is down from 11.2 on admission. Abdomen soft, nontender. ROS: Denies SOB or chest pain Exam (Progress Note) - Constitutional Vitals: Period Temp Pulse Resp BP Sys/Benjamin Pulse Ox Last 24 Hr 97.6 F-98.3 F 51-60 12-20 137-152/64-76 94-100 General appearance: normal weight, no acute distress - Head Head exam: Present: normal inspection, normocephalic - Eye Eye exam: Present: other (Lids and conjunctive are unremarkable). Absent: scleral icterus - ENT ENT exam: Present: normal exam, normal oropharynx - Neck Neck exam: Present: normal inspection - Respiratory Respiratory exam: Present: clear to auscultation bilaterally. Absent: rales, rhonchi, wheezes - Cardiovascular Cardiovascular exam: Present: regular rate and rhythm. Absent: diastolic murmur , JVD, systolic murmur - GI/Abdominal GI/Abdominal exam: Present: normal bowel sounds, soft. Absent: ascites, distended, mass, organomegaly, tenderness - Extremities Exam Extremities exam: Present: normal inspection, full ROM - Back Exam Back exam: Present: normal inspection - Neurological Exam Neurological exam: Present: alert, oriented X3 - Psychiatric Psychiatric exam: Present: normal affect, normal mood - Skin Skin exam: Present: normal color, warm, dry Results - Labs CBC & BMP: 02/06/17 04:56 02/05/17 04:24 Lab Results: I have reviewed the past 24 hour labs Specialty Discharge - Follow Up or Referrals Follow up with: Wolfgang Elam MD [Physician] - 02/17/17 10:15 am <Sy García - Last Filed: 02/07/17 20:50> Exam (Progress Note) - Constitutional Vitals: Period Temp Pulse Resp BP Sys/Benjamin Pulse Ox Last 24 Hr 97.7 F-98.4 F 54-60 12-20 122-156/58-72 99-100 Results - Labs CBC & BMP: 02/06/17 04:56 02/05/17 04:24
--- NOTE | 2017-02-07 10:18 | Pathology Report from [facility] ---
ACCESSION # : [id number] PATIENT NAME : Serge Quintana ORDERING DR : Lamar Tejeda MD CLINICAL HX: 76 Y/O female w/HX of RT breast CA diagnosed 2008, now w/swollen, thick RT breast; inflammatory carcinoma POST-OP DX: Same SPECIMEN INFO: Punch BX skin of RT breast GROSS DESCRIPTION: Received in formalin labeled "SERGE QUINTANA & RT BREAST" is a white yellow punch biopsy with a dark brown skin surface measuring 0.7 x 0.4 cm, bisected and submitted in one cassette. NOTE: Time in formalin is 3:30 p.m. on 02/02/2017 and time out of formalin is 6:00 p.m. on . 02/03/2017. DIAGNOSIS FOR SERGE QUINTANA: RIGHT BREAST, PUCH BIOPSY: Dense dermal lymphocytic inflammation, suggestive of a chronic dermatitis; no evidence of brest carcinoma by pancytokeratin and CK7 immunostains. SERVICE DATE: 02/03/2017 REPORT DATE: 02/04/2017 PATHOLOGIST: Staci Dominguez III, M.D. MTDD
[2017-02-07] MEDS: ENOXAPARIN 40 MG/0.4 ML SYRINGE SUBCUT SCH (15:07)
--- NOTE | 2017-02-07 17:17 | Hospitalist Progress Note ---
Assessment and Plan (1) CHF (congestive heart failure) Status: Chronic Current Visit: No (2) Hypertension Status: Chronic Current Visit: No Qualifiers: Hypertension type: essential hypertension Qualified Code(s): I10 - Essential (primary) hypertension (3) Anemia Status: Acute Assessment and plan: Most likely source is GI given the history. GI following and will determine the need for endoscopic evaluation. Pt. has had a history of PUD. Will start PPI bid. Current Visit: Yes Qualifiers: Iron deficiency anemia type: chronic blood loss (4) Dehydration Status: Resolved Current Visit: Yes (5) Breast mass in female Status: Acute Assessment and plan: Still awaiting path report in order to determine next steps. Current Visit: Yes Hospitalist: Subjective Interval history: Patient seen and evaluated. Awake and alert. Reports diffuse abdominal pain that has been ongoing for the past 24 hours. No N/V. Poor oral intake. Reports of stool positive for occult blood. H/H trending down. GI following. Breast Biopsy report remains pending. Exam - Constitutional Vitals: Period Temp Pulse Resp BP Sys/Benjamin Pulse Ox Last 24 Hr 97.7 F-98.4 F 54-60 12-20 122-156/58-74 94-100 General appearance: no acute distress, over weight - Head Head exam: Present: normal inspection, normocephalic, atraumatic - Eye Eye exam: Present: EOMI - Respiratory Respiratory exam: Present: clear to auscultation bilaterally. Absent: rales, rhonchi, wheezes - Cardiovascular Cardiovascular exam: Present: bradycardia, systolic murmur - GI/Abdominal GI/Abdominal exam: Present: normal bowel sounds, tenderness (diffusely), soft. Absent: distended - Neurological Exam Neurological exam: Present: alert, CN II-XII intact - Psychiatric Psychiatric exam: Present: normal affect, normal mood - Skin Skin exam: Present: normal color, warm, dry Results - Labs CBC & BMP: 02/06/17 04:56 02/05/17 04:24 Specialty Discharge - Follow Up or Referrals Follow up with: Wolfgang Elam MD [Physician] - 02/17/17 10:15 am
[2017-02-07] MEDS: PANTOPRAZOLE 40 MG TABLET PO SCH (21:32)
[2017-02-08] MEDS: hydrOXYzine HCL 25 MG TABLET PO PRN (00:42)
[2017-02-08] MEDS: oxyCODONE/ACETAMINOPHEN 5-325 MG TABLET PO PRN ×2 (06:44→20:07)
--- NOTE | 2017-02-08 07:19 | Oncology Progress Note ---
Oncology Subjective PN Interval history: There is still no pathology report back on this patient from the breast biopsy done last week. She is extremely debilitated and weak. We need a tissue diagnosis to establish whether or not to consider any radiation, surgery or what additional therapy to employee in treating her. There is a distinct possibility that she has lung metastases. However, we need a tissue diagnosis. After I completed dictation of the first paragraph, a typed report of the punch biopsy of the right breast pathology report was presented to me. The report date was February 04, 2017 but it had not been loaded on to the electronic medical record. There is no definite evidence of breast carcinoma on the biopsy report. There I have started the patient back on Aromasin and she needs to be discharged on Aromasin 25 mg p.o. daily. From my standpoint she can go home or to a swing bed but she will need follow-up at my office eventually. Exam - Constitutional Vitals: Period Temp Pulse Resp BP Sys/Benjamin Pulse Ox Last 24 Hr 97.6 F-98.4 F 56-71 16-18 114-156/53-69 99-100 Results - Labs CBC & BMP: 02/06/17 04:56 02/05/17 04:24 Specialty Discharge - Follow Up or Referrals Follow up with: Wolfgang Elam MD [Physician] - 02/17/17 10:15 am
--- NOTE | 2017-02-08 08:47 | Gastrointestinal Progress Note ---
<Taylor Woodruff Olga Lidia - Last Filed: 02/08/17 08:44> Assessment and Plan (1) Positive fecal occult blood test Status: Acute Assessment and plan: 02/08-no reports of overt bleeding. Tolerating diet. Family and patient wished to proceed with colonoscopy at this time. Recheck H&H this morning. Schedule colonoscopy for tomorrow. Plan an addendum to follow by Dr. García. 02/07-reports of stools positive for occult blood on admission with history of chronic renal failure and anemia. No reported history of transfusions in the past. No colonoscopy in the past. History of PUD reported by son. Hemoglobin 11.2 on admission, down at 9 today in absence of overt bleeding. Plan an addendum to follow by Dr. García per Current Visit: Yes Gastroenterology - PN: Subj Interval history: CC: Anemia, heme positive stool Patient is seen awake and alert sitting up in bed eating breakfast. Family at bedside. No reports of overt bleeding overnight. Denies abdominal pain, nausea or vomiting. Discussed with family and patient proceeding with colonoscopy. They will agree at this time to proceed. Abdomen soft, nontender. Will recheck hemoglobin this morning. ROS: No shortness breath or chest pain Exam (Progress Note) - Constitutional Vitals: Period Temp Pulse Resp BP Sys/Benjamin Pulse Ox Last 24 Hr 97.6 F-98.4 F 56-71 16-18 114-156/53-69 99-100 General appearance: normal weight, no acute distress - Head Head exam: Present: normal inspection, normocephalic - Eye Eye exam: Present: other (Lids and conjunctive unremarkable). Absent: scleral icterus - ENT ENT exam: Present: normal exam, normal oropharynx - Neck Neck exam: Present: normal inspection - Respiratory Respiratory exam: Present: clear to auscultation bilaterally. Absent: rales, rhonchi, wheezes - Cardiovascular Cardiovascular exam: Present: regular rate and rhythm. Absent: diastolic murmur , JVD, systolic murmur - GI/Abdominal GI/Abdominal exam: Present: normal bowel sounds, soft. Absent: ascites, distended, mass, organomegaly, tenderness - Extremities Exam Extremities exam: Present: normal inspection, full ROM - Back Exam Back exam: Present: normal inspection - Neurological Exam Neurological exam: Present: alert, oriented X3 - Psychiatric Psychiatric exam: Present: normal affect, normal mood - Skin Skin exam: Present: normal color, warm, dry Results - Labs CBC & BMP: 02/06/17 04:56 02/05/17 04:24 Lab Results: I have reviewed the past 24 hour labs Specialty Discharge - Follow Up or Referrals Follow up with: Wolfgang Elam MD [Physician] - 02/17/17 10:15 am <Sy García - Last Filed: 02/08/17 21:37> Exam (Progress Note) - Constitutional Vitals: Period Temp Pulse Resp BP Sys/Benjamin Pulse Ox Last 24 Hr 97.6 F-98.7 F 57-75 16-18 114-136/51-71 97-100 Results - Labs CBC & BMP: 02/08/17 09:09 02/08/17 09:09
[2017-02-08] MEDS: CARVEDILOL 25 MG TABLET PO SCH ×2 (09:05→20:07)
[2017-02-08] MEDS: VENLAFAXINE XR 75 MG CAPSULE PO SCH (09:05)
[2017-02-08] MEDS: ISOSORBIDE MONONITRATE 30 MG TABLET PO SCH (09:05)
[2017-02-08] MEDS: FUROSEMIDE 40 MG TABLET PO SCH (09:05)
[2017-02-08] MEDS: EXEMESTANE 25 MG TABLET PO SCH (09:05)
[2017-02-08] MEDS: PANTOPRAZOLE 40 MG TABLET PO SCH ×2 (09:05→20:07)
[2017-02-08 09:24] LABS: Hematocrit 30.5 VOL% (35.7-47.0); Hemoglobin 9.3 GM/DL (12.0-16.0)
[2017-02-08 09:42] LABS: Calcium 8.7 MG/DL (8.5-10.1); Osmolality,Calculated 285.4 MOS/KG (273-304); Potassium 3.8 MMOL/L (3.5-5.1)
[2017-02-08] MEDS ORDERED: BISACODYL 5 MG TABLET PO ONE (12:00)
--- NOTE | 2017-02-08 12:13 | Discharge Summary ---
Hospital Course - Hospital Course Hospital Course: This patient is a 76-year-old female who was admitted to the [facility] on 01/28 with complaints of generalized weakness, aching with a BUN of 41 and a creatinine of 3.2, hyperkalemia and a history of breast cancer. On exam, she had extreme darkening of the right breast with thickening of skin and increased density of breast tissue. Oncology was consulted and tumor markers were ordered along with mammogram and breast biopsy. CA 27.29 returned normal at 33.6. CA 125 was normal as well as a CEA. Mammogram was strongly suggestive of recurrent breast cancer, however, the breast punch biopsy revealed dense dermal lymphocytic inflammation suggestive of chronic dermatitis with no evidence of breast carcinoma. Oncology started the patient on Aromasin, and she will need to be discharged home on Aromasin 25 mg daily with outpatient follow-up. Nephrology also follow the patient during her course. She was treated with IV fluids and avoidance of nephrotoxic agents. Creatinine normalized to 1-1.1 during her stay. On 02/07/2017, H&H trended downward and the patient's stool was positive for occult blood. GI scheduled colonoscopy for 02/09/2017. Patient has reached maximum benefit from hospitalization at this time is stable for discharge. She will be discharged with appropriate follow-up. Discharge orders and addendum per Dr. Sofia. - Time spent with patient Time with patient DS: Greater than 30 minutes Diagnosis - Discharge Diagnosis (1) Generalized weakness Status: Chronic (2) Coronary artery disease Status: Acute (3) Hyperkalemia Status: Resolved (4) Visual hallucinations Status: Chronic (5) Debility Status: Acute (6) Hypertension Status: Chronic Specialty Discharge - Follow Up or Referrals Follow up with: Wolfgang Elam MD [Physician] - 02/17/17 10:15 am Discharge Plan - Discharge Medications No Action Oxycodone HCl/Acetaminophen [Percocet 10-325 mg Tablet] 1 tablet PO Q6HR PRN PRN Reason: Pain Albuterol Sulfate [Proair HFA] 2 puffs INH Q4-6H PRN PRN Reason: Shortness Of Breath Albuterol Tab [Proventil Tab] 2 mg PO DAILY Isosorbide Mononitrate [Isosorbide Mononitrate ER] 30 mg PO DAILY Carvedilol [Coreg] 25 mg PO BID Zolpidem Tartrate [Ambien] 10 mg PO BEDTIME PRN PRN Reason: Sleep hydrOXYzine HCL TAB [Atarax Tab] 25 mg PO TID PRN PRN Reason: Itching Cyanocobalamin Inj [Vitamin B12 Inj] 1,000 mcg IM Q30D Venlafaxine HCl [Venlafaxine HCl ER] 75 mg PO DAILY Furosemide Tab [Lasix Tab] 40.5 mg PO DAILY Esomeprazole Magnesium [Esomeprazole] 40 mg PO DAILY - Follow Up or Referral Follow Up: Wolfgang Elam MD [Physician] - 02/17/17 10:15 am - Forms/Instructions Exam - Constitutional Vitals: Period Temp Pulse Resp BP Sys/Benjamin Pulse Ox Last 24 Hr 97.6 F-98.2 F 56-71 16-18 114-126/51-67 99-100 Discharge Results Procedures and tests throughout hospitalization: Pending Orders 02/02/17 Occult Blood, Stool Stat Labs on day of discharge: Labs from last 24 hours 02/08/17 02/08/17 09:09 09:09 Hgb 9.3 L Hct 30.5 L Sodium 140 Potassium 3.8 Chloride 110 H Carbon Dioxide 26 Anion Gap 7.8 BUN 27 H Creatinine 1.50 H GFR Calculation 38 BUN/Creatinine Ratio 18.00 Glucose 130 H Calculated Osmolality 285.4 Calcium 8.7 DS: Provider Date of admission: 01/28/17 15:40 Primary care physician: . No PCP Attending physician on admission: Anna Sotelo MD Consults: 01/28/17 16:37 Consult to Pharmacy [CONS] Routine Reason for Pharmacy Consult: Adjust Meds Renal Funct 01/28/17 17:14 Consult to Dietitian [CONS] Routine Reason for Dietitian: Dietary Consult 01/28/17 18:09 Consult to Physician [CONS] Routine Comment: pt known to you; elevated BUN/Cr Consulting Provider: Wolfgang Gore Person Notified: Dr Tinsley Date Notified: 01/29/17 Time Notified: 09:00 01/29/17 09:22 Consult to Physician [CONS] Routine Comment: known to you, breast changes Consulting Provider: Wolfgang Elam When should Consulting Provider be notified: In am Person Notified: Leslie Date Notified: 01/29/17 Time Notified: 10:10 Consult Notification Comment: Dr Short on for oncology 02/01/17 06:54 Consult to Physician [CONS] Routine Comment: Plz evaluate for breast biopsy. [email or web address] Consulting Provider: Fabian Linares Person Notified: siomara Date Notified: 02/01/17 Time Notified: 09:03 02/01/17 08:04 Consult to Occupational Therapy [CONS] Routine Reason for Occupational Therapy: Evaluate and Treat Consult to Physical Therapy [CONS] Routine Reason for Physical Therapy: Evaluate and Treat 02/01/17 15:56 Consult to Case Mgmt/Social Srvs [CONS] Routine Reason for Case Mgmt/Social Srvs: Swingbed/SNF/Intermediate 02/02/17 07:52 Consult to Physician [CONS] Routine Comment: Can you needle biopsy the breast mass? Consulting Provider: Lamar Tejeda Person Notified: carissa Date Notified: 02/02/17 Time Notified: 10:35 02/05/17 10:39 Consult to Physician [CONS] Routine Comment: Occult GI bleed Consulting Provider: Sy García Discharging clinician: Sid LONGORIA Expected date of discharge: 02/09/17
[2017-02-08] MEDS ORDERED: POLYETHYLENE GLYCOL POWDER 255 GM BOTTLE PO ONE (13:00)
[2017-02-08 14:26] LABS: Calcium 8.5 MG/DL (8.5-10.1); Osmolality,Calculated 291.8 MOS/KG (273-304); Phosphorous 4.9 MG/DL (2.5-4.9); Potassium 3.9 MMOL/L (3.5-5.1)
--- NOTE | 2017-02-08 16:09 | XRay Report ---
Exam: XR KUB Date: 02/08/2017 3:15 PM Comparison: 01/28/2017 Indication: Generalized abdominal pain Technique:[Supine abdomen] Findings: Nonobstructed bowel gas pattern with persistent increased fecal material in the colon. Prior cholecystectomy with aortoiliac stent graft. Extensive arterial calcifications with postoperative findings in the left femoral location. Degenerative changes. Impression: Nonobstructive bowel gas pattern with persistent increased fecal material. Aorto iliac stent graft with extensive arterial calcifications and CT proven infrarenal AAA.. PROCEDURE INTERPRETED AT [facility] DEPARTMENT OF RADIOLOGY Final Report Signed by: Dr. Lindsey Samson
--- NOTE | 2017-02-08 16:16 | Hospitalist Progress Note ---
Hospitalist: Subjective Interval history: Pt reports mild right lower quadrant pain. Tolerating some po. No fever. Undergoing prep for colonoscopy for AM. No cp or SOB Exam - Constitutional Vitals: Period Temp Pulse Resp BP Sys/Benjamin Pulse Ox Last 24 Hr 97.6 F-98.7 F 57-71 16-18 114-126/51-67 99-100 Exam: Elderly, A and O x 2 RRR +2/6SEM CTAB nonlabored Soft, RLQTTP without rebound or guarding. Hypoactive bowel sounds Warm no c/c/e Results - Labs CBC & BMP: 02/08/17 09:09 02/08/17 09:09 - Impressions (1) CHF (congestive heart failure) Status: Chronic Current Visit: No appears compensated. Cont current therapy (2) Hypertension Status: Chronic Current Visit: No Qualifiers: Hypertension type: essential hypertension Qualified Code(s): I10 - Essential (primary) hypertension - cont treatment (3) Anemia Status: Acute Assessment and plan: Most likely source is GI given the history. GI following and has plans for colonoscopy in am. Pt. has had a history of PUD. Cont PPI bid. Current Visit: Yes Qualifiers: Iron deficiency anemia type: chronic blood loss (4) Constipation Status: Acute Current Visit: Yes - likely will resolve with bowel prep this pm for colonoscopy 02/08 (5) Breast mass in female Status: Acute Assessment and plan: path report showed chronic dermatitis. Oncology will repeat bx outpt. D/W pt and child welfare caseworker. Possible dc tomorrow after procedure. Specialty Discharge - Follow Up or Referrals Follow up with: Wolfgang Elam MD [Physician] - 02/17/17 10:15 am
[2017-02-08] MEDS ORDERED: MAGNESIUM CITRATE 300 ML BOTTLE PO ONE (21:00)
[2017-02-09 06:14] LABS: Albumin 2.9 G/DL (3.4-5.0); Calcium 8.4 MG/DL (8.5-10.1); Osmolality,Calculated 290.7 MOS/KG (273-304); Phosphorous 3.9 MG/DL (2.5-4.9)
[2017-02-09] MEDS: EXEMESTANE 25 MG TABLET PO SCH ×2 (09:00→14:19)
[2017-02-09] MEDS: ISOSORBIDE MONONITRATE 30 MG TABLET PO SCH ×2 (09:00→14:19)
[2017-02-09] MEDS: PANTOPRAZOLE 40 MG TABLET PO SCH ×3 (09:00→21:41)
[2017-02-09] MEDS: VENLAFAXINE XR 75 MG CAPSULE PO SCH ×2 (09:00→14:19)
[2017-02-09] MEDS: CARVEDILOL 25 MG TABLET PO SCH ×3 (09:00→21:41)
[2017-02-09] MEDS ORDERED: GLYCOPYRROLATE 0.4 MG/2 ML VIAL ONE (12:06)
[2017-02-09] MEDS ORDERED: PHENYLEPHRINE 1 MG/10 ML SYRINGE IV ONE (12:06)
[2017-02-09] MEDS ORDERED: PROPOFOL 200 MG/20 ML VIAL IV ONE (12:06)
[2017-02-09] MEDS ORDERED: LIDOCAINE 2% 5 ML VIAL ONE (12:06)
--- NOTE | 2017-02-09 12:30 | History and Physical Update ---
History and Physical Update - Physical Exam Mental Status: alert and oriented Heart: regular rate and rhythm Lung: clear to auscultation Abdomen: within normal limits Vitals: within normal limits
--- NOTE | 2017-02-09 12:33 | Operative Note ---
Date of procedure: 02/09/17 Pre-op diagnosis: Iron deficiency anemia Procedure: Colonoscopy 76-year-old female with metastatic breast cancer and iron deficiency anemia never had a colon looked at now for colonoscopy. Informed symptoms obtained the patient and the family She was sedated with MAC anesthesia per anesthesia protocol. Patient placed in left lateral decubitus position digital exam was normal. The Olympus flexible video colonoscope Serling canal advanced under direct vision to the level of the cecum. Withdrawal time 6 minutes Prep limited prep with poor visualization, no large polyps or mass lesion seen. Findings: Cecum-identified by ileocecal valve appendiceal orifice. Limited prep. Terminal ileum-normal Ascending colon-diverticulosis exam limited by prep Transverse colon diverticulosis exam limited by prep Descending colon exam limited by prep moderate diverticulosis seen Sigmoid colon-diverticulosis exam limited by prep Rectum-normal to direct retroflexed views. The procedure terminated placed our procedure well Postop diagnosis: 1. Diverticulosis coli-limited prep makes visibility of smaller lesions difficult no large polyps or mass lesions were observed. Anesthesia: MAC Surgeon / Physician: Sy García Estimated blood loss: none Specimens: none sent Condition: stable Disposition: post procedure unit Results - Labs CBC & BMP: 02/08/17 09:09 02/09/17 05:20 Discharge Plan - Discharge Medications No Action Oxycodone HCl/Acetaminophen [Percocet 10-325 mg Tablet] 1 tablet PO Q6HR PRN PRN Reason: Pain Albuterol Sulfate [Proair HFA] 2 puffs INH Q4-6H PRN PRN Reason: Shortness Of Breath Albuterol Tab [Proventil Tab] 2 mg PO DAILY Isosorbide Mononitrate [Isosorbide Mononitrate ER] 30 mg PO DAILY Carvedilol [Coreg] 25 mg PO BID Zolpidem Tartrate [Ambien] 10 mg PO BEDTIME PRN PRN Reason: Sleep hydrOXYzine HCL TAB [Atarax Tab] 25 mg PO TID PRN PRN Reason: Itching Cyanocobalamin Inj [Vitamin B12 Inj] 1,000 mcg IM Q30D Venlafaxine HCl [Venlafaxine HCl ER] 75 mg PO DAILY Furosemide Tab [Lasix Tab] 40.5 mg PO DAILY Esomeprazole Magnesium [Esomeprazole] 40 mg PO DAILY - Follow Up or Referral Follow Up: Wolfgang Elam MD [Physician] - 02/17/17 10:15 am - Forms/Instructions
--- NOTE | 2017-02-09 12:35 | Anesthesia Post-Op ---
Anesthesia Post OP - Post Ansesthetic Evaluation Patient seen in post op: Yes Resp: within normal limits CV: within normal limits Mental: within normal limits Temp: within normal limits [id number]: within normal limits Nausea and Vomiting: within normal limits Pain: within normal limits
[2017-02-09] MEDS: oxyCODONE/ACETAMINOPHEN 5-325 MG TABLET PO PRN ×2 (14:02→22:40)
--- NOTE | 2017-02-09 17:19 | Hospitalist Progress Note ---
Hospitalist: Subjective Interval history: Pt had C-scope today. Denies any abd pain. She states "I'm about to starve to ." No fever. No cp or SOB Exam - Constitutional Vitals: Period Temp Pulse Resp BP Sys/Benjamin Pulse Ox Last 24 Hr 98 F-98.7 F 57-78 12-18 98-136/58-71 97-100 Exam: Elderly, A and O x 2 RRR +2/6SEM CTAB nonlabored Soft, NT,ND, Hypoactive bowel sounds Warm no c/c/e Results - Labs CBC & BMP: 02/08/17 09:09 02/09/17 05:20 - Impressions (1) CHF (congestive heart failure) Status: Chronic Current Visit: No appears compensated. Cont current therapy (2) Hypertension Status: Chronic Current Visit: No Qualifiers: Hypertension type: essential hypertension Qualified Code(s): I10 - Essential (primary) hypertension - cont treatment (3) Anemia Status: Acute Assessment and plan: Most likely source is GI given the history. GI following and has plans for colonoscopy in am. Pt. has had a history of PUD. Cont PPI bid. Current Visit: Yes Qualifiers: Iron deficiency anemia type: chronic blood loss (4) Constipation/ RLQ pain. Status: Acute Current Visit: Yes - resolved. s/p colon 02/09 which showed diverticulosis. Plans for EGD in am per GI. (5) Breast mass in female Status: Acute Assessment and plan: path report showed chronic dermatitis. Oncology will repeat bx outpt. D/W pt. Possible dc tomorrow after procedure. She refuses rehab and only wants home with HH. Will arrange at discharge. Specialty Discharge - Follow Up or Referrals Follow up with: Wolfgang Elam MD [Physician] - 02/17/17 10:15 am
[2017-02-09] MEDS: ACETAMINOPHEN 325 MG TABLET PO PRN (21:40)
--- NOTE | 2017-02-10 07:41 | Oncology Progress Note ---
Oncology Subjective PN Interval history: I had signed off this patient. Ms. Doyle was admitted with what was suspected of being recurrent breast cancer but a right breast biopsy was performed on February 02 and pathology did not post the report in the electronic medical records until February 07. The report is dated February 04, 2017 but this is a misrepresentation of the time that the report actually reached the electronic medical record. Neither I nor Dr. Lamar Tejeda were aware that the report had come back until February 07, 2017. The report indicates that the discolored, stony hard breast abnormality may not be recurrent breast cancer. In fact, we have not proven recurrence of the patient's breast cancer. I have placed the patient on Aromasin because she has multiple small pulmonary nodules that we considered to possibly be metastatic disease but she is too frail to consider an open lung biopsy. I discussed the patient's case with Dr. CORRAL today. The plan is to follow her and recheck chest x-rays and see if the small pulmonary nodules change. Dr. Corral and I and also Dr. Tejeda agree with this plan. However, there is no tissue proof that the patient has recurrent metastatic breast cancer and her original tumor was stage I. Exam - Constitutional Vitals: Period Temp Pulse Resp BP Sys/Benjamin Pulse Ox Last 24 Hr 97.9 F-98.4 F 55-103 12-18 98-136/56-66 98-100 Results - Labs CBC & BMP: 02/08/17 09:09 02/09/17 05:20 Specialty Discharge - Follow Up or Referrals Follow up with: Wolfgang Elam MD [Physician] - 02/17/17 10:15 am
[2017-02-10] MEDS: CARVEDILOL 25 MG TABLET PO SCH ×2 (09:30→13:24)
[2017-02-10] MEDS: EXEMESTANE 25 MG TABLET PO SCH ×2 (09:30→13:24)
[2017-02-10] MEDS: ISOSORBIDE MONONITRATE 30 MG TABLET PO SCH ×2 (09:31→13:24)
[2017-02-10] MEDS: FUROSEMIDE 40 MG TABLET PO SCH ×2 (09:31→13:24)
[2017-02-10] MEDS: PANTOPRAZOLE 40 MG TABLET PO SCH ×2 (09:31→13:25)
[2017-02-10] MEDS: VENLAFAXINE XR 75 MG CAPSULE PO SCH ×2 (09:31→13:24)
[2017-02-10] MEDS ORDERED: PROPOFOL 200 MG/20 ML VIAL IV ONE (11:47)
[2017-02-10] MEDS ORDERED: LIDOCAINE 2% 5 ML VIAL ONE (11:47)
--- NOTE | 2017-02-10 11:55 | Operative Note ---
Date of procedure: 02/10/17 Pre-op diagnosis: Occult positive stools Procedure: EGD with biopsy 76-year-old female with occult positive stools now for upper endoscopy to evaluate. Informed symptoms obtained the patient and her family She was sedated with MAC anesthesia per anesthesia protocol. Patient placed in left lateral decubitus position the Olympus flexible video upper endoscope was inserted into the oral cavity under direct vision the esophagus was intubated. Findings: Esophagus-normal proximal mid esophageal mucosa distal esophagus with moderate hiatal hernia. No significant esophagitis, varices Robison's or stricture was identified. Stomach-normal insufflation there is acute antral erosive gastritis biopsies were taken. Remaining stomach is normal to direct and retroflexed views of the body, fundus and cardia the stomach. Pylorus-normal Duodenum-normal for the bulb and duodenum to the third portion of the duodenum. The procedure terminated placed our procedure well she is discharged recovery in good condition. Postop diagnosis: 1. Erosive gastritis-continue PPI treatment. Likely source for her occult positive stools and anemia. 2. Gastroesophageal reflux disease-continue PPI treatment antireflux precautions. Anesthesia: MAC Surgeon / Physician: Sy García Estimated blood loss: none Specimens: other (Erosive gastritis) Condition: stable Disposition: post procedure unit Results - Labs CBC & BMP: 02/08/17 09:09 02/09/17 05:20 Discharge Plan - Discharge Medications No Action Oxycodone HCl/Acetaminophen [Percocet 10-325 mg Tablet] 1 tablet PO Q6HR PRN PRN Reason: Pain Albuterol Sulfate [Proair HFA] 2 puffs INH Q4-6H PRN PRN Reason: Shortness Of Breath Albuterol Tab [Proventil Tab] 2 mg PO DAILY Isosorbide Mononitrate [Isosorbide Mononitrate ER] 30 mg PO DAILY Carvedilol [Coreg] 25 mg PO BID Zolpidem Tartrate [Ambien] 10 mg PO BEDTIME PRN PRN Reason: Sleep hydrOXYzine HCL TAB [Atarax Tab] 25 mg PO TID PRN PRN Reason: Itching Cyanocobalamin Inj [Vitamin B12 Inj] 1,000 mcg IM Q30D Venlafaxine HCl [Venlafaxine HCl ER] 75 mg PO DAILY Furosemide Tab [Lasix Tab] 40.5 mg PO DAILY Esomeprazole Magnesium [Esomeprazole] 40 mg PO DAILY - Follow Up or Referral Follow Up: Wolfgang Elam MD [Physician] - 02/17/17 10:15 am - Forms/Instructions
--- NOTE | 2017-02-10 12:01 | Anesthesia Post-Op ---
Anesthesia Post OP - Post Ansesthetic Evaluation Patient seen in post op: Yes Resp: within normal limits CV: within normal limits Mental: within normal limits Temp: within normal limits [id number]-[id number]: within normal limits Nausea and Vomiting: within normal limits Pain: within normal limits
--- NOTE | 2017-02-10 13:24 | Discharge Summary ---
<HanovertonSid jeong - Last Filed: 02/10/17 13:19> Hospital Course - Hospital Course Hospital Course: This patient is a 76-year-old female who was admitted to the [place] ED on 01/28 with complaints of generalized weakness, aching with a BUN of 41 and a creatinine of 3.2, hyperkalemia and a history of breast cancer. On exam, she had extreme darkening of the right breast with thickening of skin and increased density of breast tissue. Oncology was consulted and tumor markers were ordered along with mammogram and breast biopsy. CA 27.29 returned normal at 33.6. CA 125 was normal as well as a CEA. Mammogram was strongly suggestive of recurrent breast cancer, however, the breast punch biopsy revealed dense dermal lymphocytic inflammation suggestive of chronic dermatitis with no evidence of breast carcinoma. Oncology started the patient on Aromasin, and she will need to be discharged home on Aromasin 25 mg daily with outpatient follow-up. Nephrology also followed the patient during her course. She was treated with IV fluids and avoidance of nephrotoxic agents. Creatinine normalized to 1-1.1 during her stay. On 02/07/2017, H&H trended downward and the patient's stool was positive for occult blood. GI scheduled colonoscopy for 02/09/2017 which revealed diverticulosis of both the ascending and descending colon without any large polyps or masses. EGD on 02/10/2017 showed erosive gastritis, which is the likely source of the occult positive stools and anemia. She also has GERD. GI recommends continuing PPI treatment and antireflux precautions for these findings. At this time, the patient has reached maximum benefit from hospitalization at this time is stable for discharge. She will be discharged with appropriate follow-up. Discharge orders and addendum per Dr. Sofia. - Time spent with patient Time with patient DS: Greater than 30 minutes Diagnosis - Discharge Diagnosis (1) Generalized weakness Status: Chronic (2) Coronary artery disease Status: Acute (3) Hyperkalemia Status: Resolved (4) Visual hallucinations Status: Chronic (5) Debility Status: Acute (6) Hypertension Status: Chronic Specialty Discharge - Follow Up or Referrals Follow up with: , GI [Other] - 1 Month Discharge Plan - Discharge Data Disposition: Home Health Service - Discharge Medications New Exemestane [Aromasin] 25 mg PO DAILY tablet Furosemide Tab [Lasix Tab] 40 mg PO DAILY tablet Pantoprazole Tab [Protonix Tab] 40 mg PO BID #60 tablet Acetaminophen Tab [Tylenol Tab] 325 mg PO Q4H PRN #0 tablet PRN Reason: fever, headache/body aches Docusate Sodium Cap [Colace Cap] 100 mg PO BID PRN #0 capsule PRN Reason: Constipation Continue Oxycodone HCl/Acetaminophen [Percocet 10-325 mg Tablet] 1 tablet PO Q6HR PRN PRN Reason: Pain Albuterol Sulfate [Proair HFA] 2 puffs INH Q4-6H PRN PRN Reason: Shortness Of Breath Albuterol Tab [Proventil Tab] 2 mg PO DAILY Isosorbide Mononitrate [Isosorbide Mononitrate ER] 30 mg PO DAILY Carvedilol [Coreg] 25 mg PO BID Zolpidem Tartrate [Ambien] 10 mg PO BEDTIME PRN PRN Reason: Sleep hydrOXYzine HCL TAB [Atarax Tab] 25 mg PO TID PRN PRN Reason: Itching Cyanocobalamin Inj [Vitamin B12 Inj] 1,000 mcg IM Q30D Venlafaxine HCl [Venlafaxine HCl ER] 75 mg PO DAILY Discontinued Furosemide Tab [Lasix Tab] 40.5 mg PO DAILY No Action Esomeprazole Magnesium [Esomeprazole] 40 mg PO DAILY - Follow Up or Referral Follow Up: Wolfgang Elam MD [Physician] - 02/17/17 10:15 am - Forms/Instructions Instructions: Dehydration (DC), Hyperkalemia (DC) Exam - Constitutional Vitals: Period Temp Pulse Resp BP Sys/Benjamin Pulse Ox Last 24 Hr 97.9 F-98.6 F 51-103 10-20 106-148/50-97 92-100 Discharge Results Procedures and tests throughout hospitalization: Pending Orders 02/02/17 Occult Blood, Stool Stat DS: Provider Date of admission: 01/28/17 15:40 Primary care physician: . No PCP Attending physician on admission: Anna Sotelo MD Consults: 01/28/17 16:37 Consult to Pharmacy [CONS] Routine Reason for Pharmacy Consult: Adjust Meds Renal Funct 01/28/17 17:14 Consult to Dietitian [CONS] Routine Reason for Dietitian: Dietary Consult 01/28/17 18:09 Consult to Physician [CONS] Routine Comment: pt known to you; elevated BUN/Cr Consulting Provider: Wolfgang Gore Person Notified: Dr Tinsley Date Notified: 01/29/17 Time Notified: 09:00 01/29/17 09:22 Consult to Physician [CONS] Routine Comment: known to you, breast changes Consulting Provider: Wolfgang Elam When should Consulting Provider be notified: In am Person Notified: Leslie Date Notified: 01/29/17 Time Notified: 10:10 Consult Notification Comment: Dr Short on for oncology 02/01/17 06:54 Consult to Physician [CONS] Routine Comment: Plz evaluate for breast biopsy. [email or web address] Consulting Provider: Fabian Linares Person Notified: siomara Date Notified: 02/01/17 Time Notified: 09:03 02/01/17 08:04 Consult to Occupational Therapy [CONS] Routine Reason for Occupational Therapy: Evaluate and Treat Consult to Physical Therapy [CONS] Routine Reason for Physical Therapy: Evaluate and Treat 02/01/17 15:56 Consult to Case Mgmt/Social Srvs [CONS] Routine Reason for Case Mgmt/Social Srvs: Swingbed/SNF/Halfway 02/02/17 07:52 Consult to Physician [CONS] Routine Comment: Can you needle biopsy the breast mass? Consulting Provider: Lamar Tejeda Person Notified: carissa Date Notified: 02/02/17 Time Notified: 10:35 02/05/17 10:39 Consult to Physician [CONS] Routine Comment: Occult GI bleed Consulting Provider: Sy García Discharging clinician: Sid LONGORIA Expected date of discharge: 02/10/17 <Anca Sofia - Last Filed: 02/10/17 17:29> Diagnosis - Discharge Diagnosis (1) Diverticulosis Status: Acute (2) PUD (peptic ulcer disease) Status: Acute (3) Anemia Status: Acute (4) Breast mass in female Status: Acute (5) COPD (chronic obstructive pulmonary disease) Status: Acute (6) Acute on chronic renal failure Status: Acute (7) Bradycardia Status: Acute (8) Congestive heart failure Status: Acute (9) Constipation Status: Acute (10) Coronary artery disease Status: Acute (11) Debility Status: Acute Discharge Plan - Discharge Data Condition at Discharge: Stable Discharge Diet: other (heart healthy, soft diet) Activity: resume usual activities as tolerated, other (no NSAIDS, ASA, blood thinners) Weight Bearing at Discharge: full weight bearing Contact your physician if you experience:: fever over 101, Difficulty voiding, Redness or swelling, Nausea/Vomiting, Shortness of breath, Bleeding, pain uncontrolled by pain medications Exam - Constitutional Exam: See progress note from today for physical exam
[2017-02-10] MEDS: oxyCODONE/ACETAMINOPHEN 5-325 MG TABLET PO PRN (13:26)
--- NOTE | 2017-02-10 14:14 | Hospitalist Progress Note ---
Hospitalist: Subjective Interval history: Patient denies any abdominal pain. She has not had anything to eat since her procedure. We are waiting to see how she tolerates oral intake. No abdominal pain at this time. No lightheadedness or dizziness. No chest pain or shortness of breath. She is on 2 L of oxygen at home. Exam - Constitutional Vitals: Period Temp Pulse Resp BP Sys/Benjamin Pulse Ox Last 24 Hr 97.9 F-98.6 F 51-103 10-20 106-148/55-97 92-100 Exam: Elderly, A and O x 2 RRR +2/6SEM CTAB nonlabored Soft, NT,ND, Hypoactive bowel sounds Warm no c/c/e Results - Labs CBC & BMP: 02/08/17 09:09 02/09/17 05:20 - Impressions (1) CHF (congestive heart failure) Status: Chronic Current Visit: No appears compensated. Cont current therapy (2) Hypertension Status: Chronic Current Visit: No Qualifiers: Hypertension type: essential hypertension Qualified Code(s): I10 - Essential (primary) hypertension - cont treatment (3) Anemia likely due to erosive gastritis Status: Acute Assessment and plan: colonoscopy on 02/09 showed diverticuli, EGD on 02/10 showed erosive gastritis. Biopsy sent and pending. Pt. has had a history of PUD. Cont PPI bid. Current Visit: Yes Qualifiers: Iron deficiency anemia type: chronic blood loss (4) Constipation/ RLQ pain. Status: Acute Current Visit: Yes - resolved. s/p colon 02/09 which showed diverticulosis. (5) Breast mass in female Status: Acute Assessment and plan: path report showed chronic dermatitis. Oncology will repeat bx outpt. D/W pt. DC pending oral intake to home with home health. CBC in 1 week at PCPs office. Specialty Discharge - Follow Up or Referrals Follow up with: Wolfgang Elam MD [Physician] - 02/17/17 10:15 am
[2017-02-10 17:04] VITALS: BP 111/50
--- NOTE | 2017-02-11 10:55 | Pathology Report from [facility] ---
ACCESSION # : [id number] PATIENT NAME : Serge Quintana ORDERING DR : PAULA CASTILLO MD CLINICAL HX: Anemia, Abd pain POST-OP DX: Same SPECIMEN INFO: Esophageal BX GROSS DESCRIPTION: The specimen is received in formalin labeled with the patient 's name and consists of two light blanco tissue fragments together measuring 0.3 x 0.2 cm. Submitted in one cassette. DIAGNOSIS FOR [facility] [place]: ESOPHAGEAL BIOPSY: Minute gastric cardia-type fragment with mild chronic inflammation. H.pylori not seen on special stain. SERVICE DATE: 02/10/2017 REPORT DATE: 02/11/2017 PATHOLOGIST: Kev Andrade M.D. [facility] Lidia
== END 2017-02-10 19:35 | disposition home health service (06) | DRG 682 ==
LOC: N.ED 13:09 → N.EDINP 15:40 → SUATTDRO 15:40 → N.EDINP 16:41 → N.5E 17:29
PROVIDERS: ADMIT Internal Medicine; ATTEND Pediatrics

== ENCOUNTER 2018-10-09 13:34 | Inpatient (IN) ==
[2018-10-09] MEDS ORDERED: SODIUM CHLORIDE 0.9% 500 ML IV STA (14:02)
[2018-10-09 16:32] LABS: Apearance,Urine CLEAR (Clear); Bilirubin,Urine Negative (Negative); Blood, Urine Negative (Negative); Glucose,Urine (UA) Negative (Negative); Hyaline Casts,Urine 1 /LPF (0-3); Ketones,Urine 5 mg/dL (Negative); Mucus,Urine Occasional /LPF (Occasional); Nitrite,Urine Negative (Negative); Protein,Urine Negative; RBC,Urine <1 /HPF (0-4); Squamous Epithelial Cell,Urine Occasional /HPF (0-10); Urine Color Yellow (Yellow); Urine Specific Gravity 1.005 (1.001-1.035); Urine Urobilinogen < 2.0 EU/DL (0.2-1.0); WBC,Urine <1 /HPF (0-6)
[2018-10-09 16:47] LABS: Barbiturates Screen,Urine Negative (Negative); Benzodiazepines Screen,Urine Negative (Negative); Cannabinoid Screen,Urine Negative (Negative); Opiate Screen,Urine Positive (Negative); Phencyclidine Screen,Urine Negative (Negative)
[2018-10-09 16:48] LABS: Basophils # 0.1 10*3/uL (0.0-0.2); Basophils % 0.8 % (0.0-0.8); Eosinophils # 0.3 10*3/uL (0.0-0.87); Eosinophils % 5.7 % (0.00-10.9); Hematocrit 33.1 VOL% (35.7-47.0); Hemoglobin 10.6 GM/DL (12.0-16.0); Immature Granulocytes % 0.7 %; Immature Granulocytes Absolute 0.04 #; Lymphocytes # 2.1 10*3/uL (1.4-4.0); Lymphocytes % 34.6 % (21.3-54.2); Mean Corpuscular Hemoglobin 30 PG (27-34); Mean Corpuscular Volume 94.8 FL (87-102); Monocytes # 0.6 10*3/uL (0.11-0.8); Monocytes % 10.7 % (1.7-12.7); Neutrophils # 2.9 10*3/uL (1.4-7.4); Neutrophils % 47.5 % (38.7-73.9); Platelet Count 139 T/CUMM (130-400); Red Blood Count 3.49 MC/CUMM (3.8-5.5); Red Cell Distribution Width 14.1 % (9.3-17.3)
[2018-10-09 17:13] LABS: INR 1.1; PT Patient Result 11.4 SECS; Partial Thromboplastin Time 29.4 SECS (0-40)
[2018-10-09 17:14] LABS: Ammonia < 10 UMOL/L (11-32)
[2018-10-09 17:17] LABS: Alanine Aminotransferase < 9 U/L (13-56); Albumin 3.6 G/DL (3.4-5.0); Alkaline Phosphatase 115 U/L (45-117); Aspartate Amino Transferase 10 U/L (0-37); Blood Urea Nitrogen 10 MG/DL (7-18); Calcium 8.8 MG/DL (8.5-10.1); Glucose 73 MG/DL (74-106); Osmolality,Calculated 274.5 MOS/KG (273-304); Potassium 2.9 MMOL/L (3.5-5.1); Sodium 139 MMOL/L (136-145); Total Protein 6.6 G/DL (6.4-8.3)
[2018-10-09] MEDS ORDERED: POTASSIUM CHLORIDE 20 MEQ TABLET PO STA (17:27)
[2018-10-09] MEDS ORDERED: GLUCAGON 1 MG VIAL IM PRN (18:30)
[2018-10-09] MEDS ORDERED: ONDANSETRON 4 MG/2 ML VIAL IV PRN (18:30)
[2018-10-09] MEDS ORDERED: DEXTROSE 50% 25 GM/50 ML VIAL IV PRN (18:30)
[2018-10-09] MEDS ORDERED: ALBUTEROL 2.5 MG/3 ML NEB RESP TX PRN (18:33)
[2018-10-09] MEDS: ENOXAPARIN 30 MG/0.3 ML SYRINGE SUBCUT SCH (19:15)
[2018-10-09] MEDS ORDERED: SODIUM CHLOR 0.9% KCL 40 MEQ 40 MEQ/1,000 ML BAG IV SCH (20:00)
[2018-10-09] MEDS: CARVEDILOL 25 MG TABLET PO SCH (22:13)
[2018-10-09] MEDS: traZODone 50 MG TABLET PO SCH (22:13)
[2018-10-10 06:16] LABS: Basophils % 0.6 % (0.0-0.8); Eosinophils # 0.3 10*3/uL (0.0-0.87); Eosinophils % 5.3 % (0.00-10.9); Hematocrit 33.2 VOL% (35.7-47.0); Hemoglobin 10.2 GM/DL (12.0-16.0); Immature Granulocytes % 0.8 %; Immature Granulocytes Absolute 0.04 #; Lymphocytes # 1.7 10*3/uL (1.4-4.0); Lymphocytes % 33.1 % (21.3-54.2); Mean Corpuscular HGB Conc 30.7 GM/DL (32-36); Mean Corpuscular Hemoglobin 29 PG (27-34); Mean Corpuscular Volume 95.7 FL (87-102); Mean Platelet Volume 12.2 FL (9.6-12.0); Monocytes # 0.6 10*3/uL (0.11-0.8); Monocytes % 11.3 % (1.7-12.7); Neutrophils # 2.5 10*3/uL (1.4-7.4); Neutrophils % 48.9 % (38.7-73.9); Platelet Count 121 T/CUMM (130-400); Red Blood Count 3.47 MC/CUMM (3.8-5.5); Red Cell Distribution Width 14.2 % (9.3-17.3); White Blood Count 5.1 T/CUMM (4-12)
[2018-10-10 06:35] LABS: Calcium 8.6 MG/DL (8.5-10.1); Osmolality,Calculated 278.3 MOS/KG (273-304); Potassium 3.1 MMOL/L (3.5-5.1)
[2018-10-10] MEDS ORDERED: POTASSIUM CHLORIDE 20 MEQ TABLET PO PRN (07:16)
[2018-10-10] MEDS: ISOSORBIDE MONONITRATE 30 MG TABLET PO SCH (10:49)
[2018-10-10] MEDS: CARVEDILOL 25 MG TABLET PO SCH ×2 (10:49→22:46)
[2018-10-10] MEDS: EXEMESTANE 25 MG TABLET PO SCH (10:50)
[2018-10-10] MEDS: PANTOPRAZOLE 40 MG TABLET PO SCH (10:50)
[2018-10-10] MEDS: DEXT 5% LACT RING KCL 20 MEQ 20 MEQ/1,000 ML BAG IV SCH ×2 (11:48→22:47)
[2018-10-10] MEDS: POTASSIUM CHLORIDE RIDER 10 MEQ in PREMIX 1 EACH IV PRN ×2 (17:15→19:33)
[2018-10-10] MEDS: traZODone 50 MG TABLET PO SCH (22:47)
[2018-10-10] MEDS: ENOXAPARIN 30 MG/0.3 ML SYRINGE SUBCUT SCH (22:47)
[2018-10-11] MEDS: POTASSIUM CHLORIDE RIDER 10 MEQ in PREMIX 1 EACH IV PRN ×2 (02:20→05:00)
[2018-10-11] MEDS: DEXT 5% LACT RING KCL 20 MEQ 20 MEQ/1,000 ML BAG IV SCH (05:00)
[2018-10-11 07:19] LABS: Calcium 8.7 MG/DL (8.5-10.1); Osmolality,Calculated 285.8 MOS/KG (273-304); Potassium 4.2 MMOL/L (3.5-5.1)
[2018-10-11] MEDS ORDERED: MAGNESIUM SULF RIDER 2 GM in PREMIX 1 EACH IV ONE (07:23)
[2018-10-11 07:31] VITALS: BP 155/56
[2018-10-11] MEDS: ISOSORBIDE MONONITRATE 30 MG TABLET PO SCH (08:36)
[2018-10-11] MEDS: CARVEDILOL 25 MG TABLET PO SCH (08:36)
[2018-10-11] MEDS: PANTOPRAZOLE 40 MG TABLET PO SCH (08:36)
[2018-10-11] MEDS: EXEMESTANE 25 MG TABLET PO SCH (08:37)
== END 2018-10-11 12:08 | disposition home health service (06) | DRG 682 ==
LOC: N.EDINP 13:34 → N.ED 13:34 → N.5E 19:23
PROVIDERS: ADMIT Family Medicine; ATTEND Family Medicine

== ENCOUNTER 2019-04-17 07:10 | Inpatient (IN) ==
[2019-04-17] MEDS ORDERED: SODIUM CHLORIDE 0.9% 1,000 ML IV STA ×2 (07:39→08:50)
[2019-04-17 08:18] LABS: Basophils % 0.2 % (0.0-0.8); Hemoglobin 8.7 GM/DL (12.0-16.0); Immature Granulocytes % 1.2 %; Immature Granulocytes Absolute 0.14 #; Lymphocytes # 0.8 10*3/uL (1.4-4.0); Lymphocytes % 6.9 % (21.3-54.2); Mean Corpuscular HGB Conc 32.2 GM/DL (32-36); Mean Corpuscular Volume 94.4 FL (87-102); Mean Platelet Volume 12.9 FL (9.6-12.0); Monocytes % 9.2 % (1.7-12.7); Neutrophils % 82.5 % (38.7-73.9); Platelet Count 115 T/CUMM (130-400); Red Blood Count 2.86 MC/CUMM (3.8-5.5); Red Cell Distribution Width 17.7 % (9.3-17.3); White Blood Count 11.6 T/CUMM (4-12)
[2019-04-17 08:36] LABS: Alanine Aminotransferase < 6 U/L (13-56); Albumin 3.1 G/DL (3.4-5.0); Alkaline Phosphatase 104 U/L (45-117); Amorphous Crystals,Urine Moderate /HPF (Few); Apearance,Urine CLEAR (Clear); Aspartate Amino Transferase 6 U/L (0-37); Bacteria,Urine Occasional /HPF (Few); Bilirubin,Urine Negative (Negative); Blood Urea Nitrogen 22 MG/DL (7-18); Blood, Urine Negative (Negative); Calcium 9.5 MG/DL (8.5-10.1); Glucose 128 MG/DL (74-106); Glucose,Urine (UA) Negative (Negative); Ketones,Urine Negative (Negative); Mucus,Urine Occasional /LPF (Occasional); Nitrite,Urine Negative (Negative); Protein,Urine 100 MG/DL; RBC,Urine 5 /HPF (0-4); Squamous Epithelial Cell,Urine Occasional /HPF (0-10); Total Protein 7.1 G/DL (6.4-8.3); Urine Color Yellow (Yellow); Urine Specific Gravity 1.018 (1.001-1.035); Urine Urobilinogen < 2.0 EU/DL (0.2-1.0)
[2019-04-17 08:46] LABS: Hypochromasia Slight; Microcytosis 1+
[2019-04-17 08:47] LABS: Ovalocytes Slight
[2019-04-17] MEDS ORDERED: KETOROLAC 30 MG/1 ML VIAL IV STA (09:15)
[2019-04-17] MEDS ORDERED: KETOROLAC 30 MG/1 ML VIAL ONE (09:16)
[2019-04-17] MEDS ORDERED: ONDANSETRON 4 MG/2 ML VIAL IV PRN (14:16)
[2019-04-17] MEDS: ENOXAPARIN 30 MG/0.3 ML SYRINGE SUBCUT SCH (14:35)
[2019-04-17] MEDS: SODIUM CHLORIDE 0.9% 1,000 ML IV SCH (14:35)
[2019-04-18] MEDS: SODIUM CHLORIDE 0.9% 1,000 ML IV SCH ×2 (00:19→21:35)
[2019-04-18 04:26] LABS: Basophils % 0.2 % (0.0-0.8); Hematocrit 26.6 VOL% (35.7-47.0); Hemoglobin 8.3 GM/DL (12.0-16.0); Immature Granulocytes % 1.2 %; Immature Granulocytes Absolute 0.14 #; Lymphocytes # 0.8 10*3/uL (1.4-4.0); Lymphocytes % 6.8 % (21.3-54.2); Mean Corpuscular HGB Conc 31.2 GM/DL (32-36); Mean Corpuscular Volume 95.7 FL (87-102); Mean Platelet Volume 10.9 FL (9.6-12.0); Monocytes % 10.3 % (1.7-12.7); Neutrophils % 81.5 % (38.7-73.9); Platelet Count 119 T/CUMM (130-400); Red Blood Count 2.78 MC/CUMM (3.8-5.5); Red Cell Distribution Width 17.9 % (9.3-17.3); White Blood Count 11.4 T/CUMM (4-12)
[2019-04-18 05:12] LABS: Calcium 9.4 MG/DL (8.5-10.1); Osmolality,Calculated 278.5 MOS/KG (273-304); Thyroid Stimulating Hormone 1.58 uIU/ml (0.358-3.74)
[2019-04-18 05:55] LABS: Folate 5.8 NG/ML (5.4-24.0)
[2019-04-18] MEDS: PANTOPRAZOLE 40 MG TABLET PO SCH (08:05)
[2019-04-18] MEDS: ACETAMINOPHEN 325 MG TABLET PO PRN (10:49)
[2019-04-18] MEDS: oxyCODONE/ACETAMINOPHEN 5-325 MG TABLET PO PRN (12:51)
[2019-04-18] MEDS: ENOXAPARIN 30 MG/0.3 ML SYRINGE SUBCUT SCH (13:55)
[2019-04-19] MEDS: ACETAMINOPHEN 325 MG TABLET PO PRN (04:08)
[2019-04-19 05:40] LABS: Basophils % 0.1 % (0.0-0.8); Hematocrit 26.2 VOL% (35.7-47.0); Hemoglobin 8.5 GM/DL (12.0-16.0); Immature Granulocytes % 1.3 %; Immature Granulocytes Absolute 0.21 #; Lymphocytes # 0.5 10*3/uL (1.4-4.0); Lymphocytes % 3.3 % (21.3-54.2); Mean Corpuscular HGB Conc 32.4 GM/DL (32-36); Mean Corpuscular Volume 92.9 FL (87-102); Mean Platelet Volume 11.6 FL (9.6-12.0); Monocytes % 8.1 % (1.7-12.7); Neutrophils % 87.2 % (38.7-73.9); Platelet Count 137 T/CUMM (130-400); Red Blood Count 2.82 MC/CUMM (3.8-5.5); Red Cell Distribution Width 17.8 % (9.3-17.3); White Blood Count 15.8 T/CUMM (4-12)
[2019-04-19 06:15] LABS: Anisocytosis 1+; Band Neutrophils 1 % (0-10); Lymphocytes 3 % (20-55); Platelet Estimate Decreased; Segmented Neutrophils 86 % (50-85); Total Cells Counted 100
[2019-04-19 06:16] LABS: Macrocytosis 1+
[2019-04-19 06:19] LABS: Calcium 9.3 MG/DL (8.5-10.1); Osmolality,Calculated 282.5 MOS/KG (273-304)
[2019-04-19] MEDS: SODIUM CHLORIDE 0.9% 1,000 ML IV SCH (07:48)
[2019-04-19] MEDS: oxyCODONE/ACETAMINOPHEN 5-325 MG TABLET PO PRN ×3 (07:48→22:50)
[2019-04-19] MEDS: PANTOPRAZOLE 40 MG TABLET PO SCH ×2 (07:49→08:31)
[2019-04-19] MEDS ORDERED: MAGNESIUM SULF RIDER 4 GM in PREMIX 1 EACH IV PRN (10:14)
[2019-04-19] MEDS ORDERED: MAGNESIUM SULF RIDER 2 GM in PREMIX 1 EACH IV PRN (10:14)
[2019-04-19] MEDS: POTASSIUM CHLORIDE 20 MEQ TABLET PO PRN ×3 (11:44→15:48)
[2019-04-19] MEDS: ENOXAPARIN 30 MG/0.3 ML SYRINGE SUBCUT SCH (13:46)
[2019-04-19] MEDS: traZODone 50 MG TABLET PO PRN (21:52)
[2019-04-20 05:34] LABS: Basophils % 0.1 % (0.0-0.8); Eosinophils % 0.1 % (0.00-10.9); Hematocrit 25.2 VOL% (35.7-47.0); Immature Granulocytes % 1.4 %; Immature Granulocytes Absolute 0.25 #; Lymphocytes # 2.1 10*3/uL (1.4-4.0); Lymphocytes % 11.2 % (21.3-54.2); Mean Corpuscular HGB Conc 31.7 GM/DL (32-36); Mean Corpuscular Volume 94.4 FL (87-102); Mean Platelet Volume 11.2 FL (9.6-12.0); Monocytes % 8.1 % (1.7-12.7); Neutrophils % 79.1 % (38.7-73.9); Platelet Count 158 T/CUMM (130-400); Red Blood Count 2.67 MC/CUMM (3.8-5.5); Red Cell Distribution Width 18.1 % (9.3-17.3); White Blood Count 18.4 T/CUMM (4-12)
[2019-04-20 05:54] LABS: Calcium 9.5 MG/DL (8.5-10.1); Osmolality,Calculated 286.1 MOS/KG (273-304)
[2019-04-20] MEDS: oxyCODONE/ACETAMINOPHEN 5-325 MG TABLET PO PRN ×2 (07:23→16:16)
[2019-04-20] MEDS: PANTOPRAZOLE 40 MG TABLET PO SCH ×2 (07:24→08:28)
[2019-04-20 10:12] LABS: Apearance,Urine CLEAR (Clear); Bacteria,Urine Many /HPF (Few); Bilirubin,Urine Negative (Negative); Blood, Urine Small mg/dL (Negative); Glucose,Urine (UA) Negative (Negative); Ketones,Urine Negative (Negative); Mucus,Urine Occasional /LPF (Occasional); Nitrite,Urine Negative (Negative); Protein,Urine 100 MG/DL; RBC,Urine 5 /HPF (0-4); Squamous Epithelial Cell,Urine Occasional /HPF (0-10); Urine Color Yellow (Yellow); Urine Specific Gravity 1.014 (1.001-1.035); Urine Urobilinogen < 2.0 EU/DL (0.2-1.0); WBC,Urine 1 /HPF (0-6)
[2019-04-20] MEDS ORDERED: DOCUSATE SODIUM 100 MG CAPSULE PO PRN (11:55)
[2019-04-20] MEDS: ENOXAPARIN 30 MG/0.3 ML SYRINGE SUBCUT SCH (14:24)
[2019-04-20] MEDS: CARVEDILOL 25 MG TABLET PO SCH (16:16)
[2019-04-20] MEDS: ACETAMINOPHEN 325 MG TABLET PO PRN (22:57)
[2019-04-21 05:21] LABS: Basophils % 0.1 % (0.0-0.8); Eosinophils % 0.1 % (0.00-10.9); Hematocrit 24.8 VOL% (35.7-47.0); Immature Granulocytes % 1.4 %; Immature Granulocytes Absolute 0.24 #; Lymphocytes # 1.6 10*3/uL (1.4-4.0); Lymphocytes % 8.9 % (21.3-54.2); Mean Corpuscular HGB Conc 32.3 GM/DL (32-36); Mean Corpuscular Volume 92.9 FL (87-102); Mean Platelet Volume 12.2 FL (9.6-12.0); Monocytes % 7.2 % (1.7-12.7); Neutrophils % 82.3 % (38.7-73.9); Platelet Count 139 T/CUMM (130-400); Red Blood Count 2.67 MC/CUMM (3.8-5.5); Red Cell Distribution Width 18.1 % (9.3-17.3); White Blood Count 17.7 T/CUMM (4-12)
[2019-04-21 05:56] LABS: Calcium 9.3 MG/DL (8.5-10.1); Osmolality,Calculated 282.4 MOS/KG (273-304)
[2019-04-21] MEDS ORDERED: EXEMESTANE 25 MG TABLET PO SCH (09:00)
[2019-04-21] MEDS: VENLAFAXINE XR 75 MG CAPSULE PO SCH (09:18)
[2019-04-21] MEDS: CARVEDILOL 25 MG TABLET PO SCH ×2 (09:18→17:57)
[2019-04-21] MEDS: ISOSORBIDE MONONITRATE 30 MG TABLET PO SCH (09:18)
[2019-04-21] MEDS: CHOLECALCIFEROL 1,000 UNIT TABLET PO SCH (09:19)
[2019-04-21] MEDS: PANTOPRAZOLE 40 MG TABLET PO SCH (09:19)
[2019-04-21] MEDS: oxyCODONE/ACETAMINOPHEN 5-325 MG TABLET PO PRN ×2 (09:23→22:22)
[2019-04-21 11:27] LABS: Amorphous Crystals,Urine Occasional /HPF (Few); Apearance,Urine CLEAR (Clear); Bacteria,Urine Moderate /HPF (Few); Bilirubin,Urine Negative (Negative); Blood, Urine Small mg/dL (Negative); Glucose,Urine (UA) Negative (Negative); Ketones,Urine Negative (Negative); Mucus,Urine Occasional /LPF (Occasional); Nitrite,Urine Negative (Negative); Protein,Urine 100 MG/DL; Squamous Epithelial Cell,Urine Occasional /HPF (0-10); Urine Color Yellow (Yellow); Urine Specific Gravity 1.016 (1.001-1.035); WBC,Urine 11 /HPF (0-6)
[2019-04-21] MEDS: ACETAMINOPHEN 325 MG TABLET PO PRN ×2 (12:42→17:58)
[2019-04-21] MEDS: ENOXAPARIN 30 MG/0.3 ML SYRINGE SUBCUT SCH (14:16)
[2019-04-21] MEDS: cefTRIAXone 1,000 MG in SYRINGE 1 EACH IV SCH (15:25)
[2019-04-22 05:38] LABS: Basophils % 0.1 % (0.0-0.8); Eosinophils % 0.1 % (0.00-10.9); Hematocrit 22.9 VOL% (35.7-47.0); Hemoglobin 7.2 GM/DL (12.0-16.0); Immature Granulocytes % 2.3 %; Immature Granulocytes Absolute 0.33 #; Lymphocytes # 1.2 10*3/uL (1.4-4.0); Lymphocytes % 8.6 % (21.3-54.2); Mean Corpuscular HGB Conc 31.4 GM/DL (32-36); Mean Corpuscular Volume 94.2 FL (87-102); Mean Platelet Volume 11.7 FL (9.6-12.0); Monocytes % 7.6 % (1.7-12.7); Neutrophils % 81.3 % (38.7-73.9); Platelet Count 113 T/CUMM (130-400); Red Blood Count 2.43 MC/CUMM (3.8-5.5); White Blood Count 14.3 T/CUMM (4-12)
[2019-04-22 06:12] LABS: Calcium 9.4 MG/DL (8.5-10.1); Osmolality,Calculated 280.5 MOS/KG (273-304)
[2019-04-22] MEDS: CARVEDILOL 25 MG TABLET PO SCH ×2 (08:43→15:59)
[2019-04-22] MEDS: PANTOPRAZOLE 40 MG TABLET PO SCH (08:43)
[2019-04-22] MEDS: VENLAFAXINE XR 75 MG CAPSULE PO SCH (08:44)
[2019-04-22] MEDS: CHOLECALCIFEROL 1,000 UNIT TABLET PO SCH (08:44)
[2019-04-22] MEDS: ISOSORBIDE MONONITRATE 30 MG TABLET PO SCH (08:44)
[2019-04-22] MEDS ORDERED: SODIUM CHLORIDE 0.9% 1,000 ML IV PRN (11:10)
[2019-04-22] MEDS: oxyCODONE/ACETAMINOPHEN 5-325 MG TABLET PO PRN (11:33)
[2019-04-22 11:34] LABS: Ferritin 388.7 ng/ml (8-252)
[2019-04-22] MEDS: ENOXAPARIN 30 MG/0.3 ML SYRINGE SUBCUT SCH (15:06)
[2019-04-22] MEDS: cefTRIAXone 1,000 MG in SYRINGE 1 EACH IV SCH (15:26)
[2019-04-22] MEDS: ACETAMINOPHEN 325 MG TABLET PO PRN (20:54)
[2019-04-22] MEDS: traZODone 50 MG TABLET PO PRN (20:54)
[2019-04-23] MEDS: oxyCODONE/ACETAMINOPHEN 5-325 MG TABLET PO PRN ×2 (02:05→10:24)
[2019-04-23 05:00] LABS: Basophils % 0.3 % (0.0-0.8); Eosinophils % 0.2 % (0.00-10.9); Hematocrit 25.9 VOL% (35.7-47.0); Hemoglobin 8.3 GM/DL (12.0-16.0); Immature Granulocytes % 1.7 %; Immature Granulocytes Absolute 0.25 #; Lymphocytes # 1.2 10*3/uL (1.4-4.0); Lymphocytes % 8.1 % (21.3-54.2); Mean Corpuscular Volume 92.2 FL (87-102); Mean Platelet Volume 12.2 FL (9.6-12.0); Monocytes % 11.3 % (1.7-12.7); Neutrophils % 78.4 % (38.7-73.9); Platelet Count 140 T/CUMM (130-400); Red Blood Count 2.81 MC/CUMM (3.8-5.5); Red Cell Distribution Width 17.9 % (9.3-17.3); White Blood Count 15.1 T/CUMM (4-12)
[2019-04-23 05:17] LABS: Calcium 9.5 MG/DL (8.5-10.1); Osmolality,Calculated 282.4 MOS/KG (273-304)
[2019-04-23] MEDS: VENLAFAXINE XR 75 MG CAPSULE PO SCH (08:31)
[2019-04-23] MEDS: CHOLECALCIFEROL 1,000 UNIT TABLET PO SCH (08:32)
[2019-04-23] MEDS: CARVEDILOL 25 MG TABLET PO SCH ×2 (08:32→17:17)
[2019-04-23] MEDS: ISOSORBIDE MONONITRATE 30 MG TABLET PO SCH (08:32)
[2019-04-23] MEDS: PANTOPRAZOLE 40 MG TABLET PO SCH (08:32)
[2019-04-23] MEDS: VANCOMYCIN INJ 1,000 MG in SODIUM CHLORIDE 0.9% 250 ML IV SCH (14:20)
[2019-04-23] MEDS: ENOXAPARIN 30 MG/0.3 ML SYRINGE SUBCUT SCH (14:20)
[2019-04-23] MEDS ORDERED: SODIUM BICARB INJ 150 MEQ in STERILE WATER INJ 850 ML IV SCH (16:00)
[2019-04-23] MEDS: SODIUM CHLORIDE 0.9% 1,000 ML IV SCH (17:17)
[2019-04-23] MEDS: ALBUTEROL/IPRATROPIUM 3 ML NEB RESP TX SCH (19:49)
[2019-04-23] MEDS: ACETAMINOPHEN 325 MG TABLET PO PRN (23:53)
[2019-04-24] MEDS: ALBUTEROL/IPRATROPIUM 3 ML NEB RESP TX SCH ×4 (00:45→20:25)
[2019-04-24] MEDS: SODIUM CHLORIDE 0.9% 1,000 ML IV SCH ×3 (03:45→22:51)
[2019-04-24 05:03] LABS: Basophils % 0.1 % (0.0-0.8); Eosinophils % 0.1 % (0.00-10.9); Hematocrit 24.6 VOL% (35.7-47.0); Hemoglobin 8.1 GM/DL (12.0-16.0); Immature Granulocytes % 1.5 %; Immature Granulocytes Absolute 0.21 #; Lymphocytes # 1.7 10*3/uL (1.4-4.0); Lymphocytes % 12.4 % (21.3-54.2); Mean Corpuscular HGB Conc 32.9 GM/DL (32-36); Mean Corpuscular Volume 93.2 FL (87-102); Mean Platelet Volume 12.1 FL (9.6-12.0); Neutrophils % 73.9 % (38.7-73.9); Platelet Count 132 T/CUMM (130-400); Red Blood Count 2.64 MC/CUMM (3.8-5.5); Red Cell Distribution Width 17.9 % (9.3-17.3); White Blood Count 13.6 T/CUMM (4-12)
[2019-04-24 05:27] LABS: Calcium 9.1 MG/DL (8.5-10.1); Osmolality,Calculated 283.4 MOS/KG (273-304)
[2019-04-24] MEDS: VENLAFAXINE XR 75 MG CAPSULE PO SCH (08:18)
[2019-04-24] MEDS: CHOLECALCIFEROL 1,000 UNIT TABLET PO SCH (08:18)
[2019-04-24] MEDS: PANTOPRAZOLE 40 MG TABLET PO SCH (08:18)
[2019-04-24] MEDS: CARVEDILOL 25 MG TABLET PO SCH ×2 (08:18→18:18)
[2019-04-24] MEDS: ISOSORBIDE MONONITRATE 30 MG TABLET PO SCH (08:18)
[2019-04-24] MEDS: oxyCODONE/ACETAMINOPHEN 5-325 MG TABLET PO PRN ×2 (10:03→20:21)
[2019-04-24] MEDS ORDERED: cefTRIAXone 1,000 MG in SYRINGE 1 EACH IV SCH (11:00)
[2019-04-24] MEDS: VANCOMYCIN INJ 1,000 MG in SODIUM CHLORIDE 0.9% 250 ML IV SCH (13:48)
[2019-04-24] MEDS: ENOXAPARIN 30 MG/0.3 ML SYRINGE SUBCUT SCH (18:18)
[2019-04-24] MEDS ORDERED: ASPIRIN CHEW 81 MG TABLET PO ONE (21:57)
[2019-04-24] MEDS ORDERED: MORPHINE 4 MG/1 ML VIAL IV PRN (21:57)
[2019-04-24] MEDS ORDERED: NITROGLYCERIN 0.4 MG/HR PATCH TRANSDERM ONE (22:01)
[2019-04-24] MEDS: NITROGLYCERIN SL 0.4 MG TABLET SL PRN (22:02)
[2019-04-24] MEDS ORDERED: ENOXAPARIN 100 MG/ML SYRINGE SUBCUT ONE (22:08)
[2019-04-24] MEDS ORDERED: NALOXONE 0.4 MG/ML VIAL ONE (22:09)
[2019-04-24] MEDS ORDERED: NALOXONE 0.4 MG/ML VIAL IV ONE (22:10)
[2019-04-24] MEDS ORDERED: FUROSEMIDE 40 MG/4 ML VIAL ONE (22:11)
[2019-04-24] MEDS ORDERED: FUROSEMIDE 40 MG/4 ML VIAL IV ONE (22:13)
[2019-04-24] MEDS ORDERED: ENOXAPARIN 80 MG/0.8 ML SYRINGE SUBCUT ONE (22:30)
[2019-04-24 22:31] LABS: Basophils # 0.1 10*3/uL (0.0-0.2); Basophils % 0.3 % (0.0-0.8); Eosinophils % 0.1 % (0.00-10.9); Hematocrit 28.5 VOL% (35.7-47.0); Hemoglobin 8.8 GM/DL (12.0-16.0); Immature Granulocytes % 1.6 %; Immature Granulocytes Absolute 0.41 #; Lymphocytes # 0.8 10*3/uL (1.4-4.0); Lymphocytes % 3.1 % (21.3-54.2); Mean Corpuscular HGB Conc 30.9 GM/DL (32-36); Mean Corpuscular Volume 95.3 FL (87-102); Mean Platelet Volume 12.2 FL (9.6-12.0); Monocytes % 8.9 % (1.7-12.7); NRBC # 0.02 10*3/uL; Platelet Count 161 T/CUMM (130-400); Red Blood Count 2.99 MC/CUMM (3.8-5.5); Red Cell Distribution Width 17.7 % (9.3-17.3)
[2019-04-24 22:48] LABS: Albumin 2.4 G/DL (3.4-5.0); Bilirubin,Total 0.8 MG/DL (0.2-1.0); Calcium 8.7 MG/DL (8.5-10.1); Osmolality,Calculated 287.7 MOS/KG (273-304); Total Protein 6.9 G/DL (6.4-8.3)
[2019-04-24 22:50] LABS: INR 1.1; PT Patient Result 11.8 SECS
[2019-04-24 23:27] LABS: Band Neutrophils 2 % (0-10); Lymphocytes 3 % (20-55); Segmented Neutrophils 87 % (50-85); Total Cells Counted 100
[2019-04-24 23:28] LABS: Acanthocytes Few; Anisocytosis 1+; Ovalocytes Few; Platelet Estimate Adequate
[2019-04-25 00:43] LABS: Amorphous Crystals,Urine Moderate /HPF (Few); Apearance,Urine CLOUDY (Clear); Bilirubin,Urine Negative (Negative); Blood, Urine Negative (Negative); Glucose,Urine (UA) Negative (Negative); Ketones,Urine Negative (Negative); Mucus,Urine Occasional /LPF (Occasional); Nitrite,Urine Negative (Negative); Protein,Urine 30 MG/DL; Urine Color Yellow (Yellow); Urine Specific Gravity 1.011 (1.001-1.035); WBC,Urine 7 /HPF (0-6)
[2019-04-25] MEDS: ALBUTEROL/IPRATROPIUM 3 ML NEB RESP TX SCH ×4 (01:56→19:30)
[2019-04-25 05:20] LABS: Basophils % 0.2 % (0.0-0.8); Hematocrit 26.1 VOL% (35.7-47.0); Hemoglobin 8.1 GM/DL (12.0-16.0); Immature Granulocytes % 1.6 %; Immature Granulocytes Absolute 0.33 #; Lymphocytes # 1.3 10*3/uL (1.4-4.0); Lymphocytes % 6.4 % (21.3-54.2); Mean Corpuscular Volume 94.9 FL (87-102); Mean Platelet Volume 12.2 FL (9.6-12.0); Monocytes % 6.6 % (1.7-12.7); Neutrophils % 85.2 % (38.7-73.9); Platelet Count 129 T/CUMM (130-400); Red Blood Count 2.75 MC/CUMM (3.8-5.5); Red Cell Distribution Width 17.6 % (9.3-17.3); White Blood Count 20.8 T/CUMM (4-12)
[2019-04-25 05:45] LABS: Band Neutrophils 1 % (0-10); Lymphocytes 3 % (20-55); Segmented Neutrophils 90 % (50-85); Total Cells Counted 100
[2019-04-25 05:46] LABS: Anisocytosis 1+
[2019-04-25 05:47] LABS: Acanthocytes 1+; Ovalocytes 1+; Platelet Estimate Adequate
[2019-04-25 05:55] LABS: Calcium 8.8 MG/DL (8.5-10.1); Osmolality,Calculated 285.5 MOS/KG (273-304)
[2019-04-25] MEDS: VENLAFAXINE XR 75 MG CAPSULE PO SCH (08:14)
[2019-04-25] MEDS: CHOLECALCIFEROL 1,000 UNIT TABLET PO SCH (08:14)
[2019-04-25] MEDS: ENOXAPARIN 80 MG/0.8 ML SYRINGE SUBCUT SCH ×2 (08:15→20:38)
[2019-04-25] MEDS: PANTOPRAZOLE 40 MG TABLET PO SCH (08:15)
[2019-04-25] MEDS: MORPHINE 4 MG/1 ML VIAL IV PRN ×2 (08:15→20:39)
[2019-04-25] MEDS: CARVEDILOL 25 MG TABLET PO SCH ×3 (08:29→18:45)
[2019-04-25] MEDS: ISOSORBIDE MONONITRATE 30 MG TABLET PO SCH (08:29)
[2019-04-25] MEDS: cefTRIAXone 2,000 MG in SYRINGE 1 EACH IV SCH (11:30)
[2019-04-25] MEDS: VANCOMYCIN INJ 1,000 MG in SODIUM CHLORIDE 0.9% 250 ML IV SCH (13:45)
[2019-04-25] MEDS: ASPIRIN EC 81 MG TABLET PO SCH (18:45)
[2019-04-25] MEDS: SODIUM CHLORIDE 0.9% 1,000 ML IV SCH (23:50)
[2019-04-26 04:33] LABS: Basophils % 0.2 % (0.0-0.8); Eosinophils % 0.3 % (0.00-10.9); Hematocrit 25.2 VOL% (35.7-47.0); Hemoglobin 7.8 GM/DL (12.0-16.0); Immature Granulocytes % 1.2 %; Immature Granulocytes Absolute 0.17 #; Lymphocytes # 1.2 10*3/uL (1.4-4.0); Lymphocytes % 8.4 % (21.3-54.2); Mean Corpuscular Volume 94.4 FL (87-102); Mean Platelet Volume 12.1 FL (9.6-12.0); Monocytes % 10.6 % (1.7-12.7); Neutrophils % 79.3 % (38.7-73.9); Platelet Count 144 T/CUMM (130-400); Red Blood Count 2.67 MC/CUMM (3.8-5.5); Red Cell Distribution Width 17.8 % (9.3-17.3); White Blood Count 14.5 T/CUMM (4-12)
[2019-04-26 04:59] LABS: Albumin 2.3 G/DL (3.4-5.0); Bilirubin,Total 0.6 MG/DL (0.2-1.0); Osmolality,Calculated 286.5 MOS/KG (273-304); Total Protein 6.4 G/DL (6.4-8.3)
[2019-04-26] MEDS: ALBUTEROL/IPRATROPIUM 3 ML NEB RESP TX SCH ×4 (06:55→20:29)
[2019-04-26] MEDS: CARVEDILOL 25 MG TABLET PO SCH ×2 (10:25→16:38)
[2019-04-26] MEDS: VENLAFAXINE XR 75 MG CAPSULE PO SCH (10:25)
[2019-04-26] MEDS: ISOSORBIDE MONONITRATE 30 MG TABLET PO SCH (10:25)
[2019-04-26] MEDS: ASPIRIN EC 81 MG TABLET PO SCH (10:25)
[2019-04-26] MEDS: PANTOPRAZOLE 40 MG TABLET PO SCH (10:26)
[2019-04-26] MEDS: CHOLECALCIFEROL 1,000 UNIT TABLET PO SCH (10:27)
[2019-04-26] MEDS: cefTRIAXone 2,000 MG in SYRINGE 1 EACH IV SCH (10:31)
[2019-04-26] MEDS: ENOXAPARIN 80 MG/0.8 ML SYRINGE SUBCUT SCH ×2 (10:38→21:34)
[2019-04-26] MEDS: MORPHINE 4 MG/1 ML VIAL IV PRN ×2 (16:16→21:34)
[2019-04-26] MEDS: SODIUM CHLORIDE 0.9% 1,000 ML IV SCH (21:38)
[2019-04-27] MEDS: ALBUTEROL/IPRATROPIUM 3 ML NEB RESP TX SCH ×4 (02:25→19:11)
[2019-04-27] MEDS: MORPHINE 4 MG/1 ML VIAL IV PRN ×3 (03:00→17:31)
[2019-04-27 04:34] LABS: Basophils % 0.2 % (0.0-0.8); Eosinophils % 0.2 % (0.00-10.9); Hematocrit 26.1 VOL% (35.7-47.0); Hemoglobin 7.7 GM/DL (12.0-16.0); Immature Granulocytes % 1.6 %; Lymphocytes # 1.2 10*3/uL (1.4-4.0); Lymphocytes % 9.7 % (21.3-54.2); Mean Corpuscular HGB Conc 29.5 GM/DL (32-36); Mean Corpuscular Volume 95.6 FL (87-102); Mean Platelet Volume 12.6 FL (9.6-12.0); Monocytes % 10.6 % (1.7-12.7); Neutrophils % 77.7 % (38.7-73.9); Platelet Count 135 T/CUMM (130-400); Red Blood Count 2.73 MC/CUMM (3.8-5.5); Red Cell Distribution Width 17.4 % (9.3-17.3); White Blood Count 12.6 T/CUMM (4-12)
[2019-04-27 04:49] LABS: Calcium 9.1 MG/DL (8.5-10.1); Osmolality,Calculated 287.5 MOS/KG (273-304)
[2019-04-27 04:52] LABS: Albumin 2.4 G/DL (3.4-5.0); Bilirubin,Total 0.6 MG/DL (0.2-1.0); Osmolality,Calculated 287.5 MOS/KG (273-304); Total Protein 6.7 G/DL (6.4-8.3)
[2019-04-27] MEDS: PANTOPRAZOLE 40 MG TABLET PO SCH (09:10)
[2019-04-27] MEDS: ASPIRIN EC 81 MG TABLET PO SCH (09:10)
[2019-04-27] MEDS: CARVEDILOL 25 MG TABLET PO SCH ×2 (09:10→17:52)
[2019-04-27] MEDS: ISOSORBIDE MONONITRATE 30 MG TABLET PO SCH (09:11)
[2019-04-27] MEDS: VENLAFAXINE XR 75 MG CAPSULE PO SCH (09:11)
[2019-04-27] MEDS: ENOXAPARIN 80 MG/0.8 ML SYRINGE SUBCUT SCH ×2 (09:13→21:49)
[2019-04-27] MEDS: CHOLECALCIFEROL 1,000 UNIT TABLET PO SCH (09:13)
[2019-04-27] MEDS: cefTRIAXone 2,000 MG in SYRINGE 1 EACH IV SCH (11:21)
[2019-04-27] MEDS: oxyCODONE/ACETAMINOPHEN 5-325 MG TABLET PO PRN (23:38)
[2019-04-28] MEDS: ALBUTEROL/IPRATROPIUM 3 ML NEB RESP TX SCH ×4 (02:41→18:44)
[2019-04-28 06:35] LABS: Basophils % 0.2 % (0.0-0.8); Hematocrit 23.4 VOL% (35.7-47.0); Hemoglobin 7.3 GM/DL (12.0-16.0); Immature Granulocytes % 2.7 %; Immature Granulocytes Absolute 0.34 #; Lymphocytes # 1.1 10*3/uL (1.4-4.0); Lymphocytes % 8.3 % (21.3-54.2); Mean Corpuscular HGB Conc 31.2 GM/DL (32-36); Mean Platelet Volume 12.7 FL (9.6-12.0); Neutrophils % 81.8 % (38.7-73.9); Platelet Count 165 T/CUMM (130-400); Red Blood Count 2.49 MC/CUMM (3.8-5.5); Red Cell Distribution Width 17.4 % (9.3-17.3); White Blood Count 12.7 T/CUMM (4-12)
[2019-04-28 07:06] LABS: Albumin 2.4 G/DL (3.4-5.0); Bilirubin,Total 0.8 MG/DL (0.2-1.0); Calcium 9.2 MG/DL (8.5-10.1); Osmolality,Calculated 291.4 MOS/KG (273-304); Total Protein 6.7 G/DL (6.4-8.3)
[2019-04-28] MEDS ORDERED: SODIUM CHLORIDE 0.9% 1,000 ML IV PRN (08:05)
[2019-04-28] MEDS: CHOLECALCIFEROL 1,000 UNIT TABLET PO SCH (08:57)
[2019-04-28] MEDS: VENLAFAXINE XR 75 MG CAPSULE PO SCH (08:58)
[2019-04-28] MEDS: PANTOPRAZOLE 40 MG TABLET PO SCH (08:58)
[2019-04-28] MEDS: ASPIRIN EC 81 MG TABLET PO SCH (08:58)
[2019-04-28] MEDS: ISOSORBIDE MONONITRATE 30 MG TABLET PO SCH (10:23)
[2019-04-28] MEDS: CARVEDILOL 25 MG TABLET PO SCH ×2 (10:23→18:43)
[2019-04-28] MEDS: ENOXAPARIN 80 MG/0.8 ML SYRINGE SUBCUT SCH (10:24)
[2019-04-28] MEDS: cefTRIAXone 2,000 MG in SYRINGE 1 EACH IV SCH (13:46)
[2019-04-28] MEDS ORDERED: ATROPINE 1 MG/10 ML SYRINGE IV PRN (14:31)
[2019-04-28] MEDS: SODIUM CHLORIDE 0.9% 1,000 ML IV SCH (14:44)
[2019-04-28] MEDS: oxyCODONE/ACETAMINOPHEN 5-325 MG TABLET PO PRN ×2 (14:50→23:51)
[2019-04-28] MEDS: DICLOFENAC 1% GEL 100 GM TUBE TOP SCH ×2 (18:44→21:35)
[2019-04-29] MEDS: ALBUTEROL/IPRATROPIUM 3 ML NEB RESP TX SCH ×4 (01:15→20:02)
[2019-04-29 05:27] LABS: Basophils % 0.2 % (0.0-0.8); Eosinophils % 0.1 % (0.00-10.9); Hematocrit 29.7 VOL% (35.7-47.0); Hemoglobin 9.6 GM/DL (12.0-16.0); Immature Granulocytes % 3.2 %; Immature Granulocytes Absolute 0.51 #; Lymphocytes # 1.6 10*3/uL (1.4-4.0); Lymphocytes % 10.2 % (21.3-54.2); Mean Corpuscular HGB Conc 32.3 GM/DL (32-36); Mean Corpuscular Volume 90.5 FL (87-102); Mean Platelet Volume 12.8 FL (9.6-12.0); Monocytes % 8.6 % (1.7-12.7); NRBC # 0.06 10*3/uL; Neutrophils % 77.7 % (38.7-73.9); Platelet Count 178 T/CUMM (130-400); Red Blood Count 3.28 MC/CUMM (3.8-5.5); Red Cell Distribution Width 17.2 % (9.3-17.3)
[2019-04-29 05:56] LABS: Calcium 9.3 MG/DL (8.5-10.1); Osmolality,Calculated 290.5 MOS/KG (273-304)
[2019-04-29 07:54] LABS: Lymphocytes 17 % (20-55); Nucleated Red Blood Cells 1 (0-5); Platelet Estimate Normal; Segmented Neutrophils 75 % (50-85); Total Cells Counted 100
[2019-04-29] MEDS: VENLAFAXINE XR 75 MG CAPSULE PO SCH (08:58)
[2019-04-29] MEDS: ASPIRIN EC 81 MG TABLET PO SCH (08:58)
[2019-04-29] MEDS: CARVEDILOL 25 MG TABLET PO SCH ×2 (08:58→17:01)
[2019-04-29] MEDS: CHOLECALCIFEROL 1,000 UNIT TABLET PO SCH (08:58)
[2019-04-29] MEDS: PANTOPRAZOLE 40 MG TABLET PO SCH (08:58)
[2019-04-29] MEDS: DICLOFENAC 1% GEL 100 GM TUBE TOP SCH ×4 (08:58→21:40)
[2019-04-29] MEDS: ISOSORBIDE MONONITRATE 30 MG TABLET PO SCH (08:58)
[2019-04-29] MEDS: oxyCODONE/ACETAMINOPHEN 5-325 MG TABLET PO PRN ×2 (09:04→21:40)
[2019-04-29] MEDS: cefTRIAXone 2,000 MG in SYRINGE 1 EACH IV SCH (11:26)
[2019-04-29] MEDS: ENOXAPARIN 30 MG/0.3 ML SYRINGE SUBCUT SCH (17:01)
[2019-04-30] MEDS: ALBUTEROL/IPRATROPIUM 3 ML NEB RESP TX SCH ×4 (01:30→19:06)
[2019-04-30 03:56] LABS: Basophils % 0.2 % (0.0-0.8); Eosinophils % 0.2 % (0.00-10.9); Hematocrit 30.5 VOL% (35.7-47.0); Hemoglobin 9.6 GM/DL (12.0-16.0); Immature Granulocytes % 3.3 %; Immature Granulocytes Absolute 0.44 #; Lymphocytes # 1.3 10*3/uL (1.4-4.0); Lymphocytes % 9.7 % (21.3-54.2); Mean Corpuscular HGB Conc 31.5 GM/DL (32-36); Mean Corpuscular Volume 93.6 FL (87-102); Mean Platelet Volume 12.6 FL (9.6-12.0); Monocytes % 8.2 % (1.7-12.7); NRBC # 0.08 10*3/uL; Neutrophils % 78.4 % (38.7-73.9); Platelet Count 168 T/CUMM (130-400); Red Blood Count 3.26 MC/CUMM (3.8-5.5); Red Cell Distribution Width 17.5 % (9.3-17.3); White Blood Count 13.2 T/CUMM (4-12)
[2019-04-30 04:14] LABS: Calcium 9.3 MG/DL (8.5-10.1); Osmolality,Calculated 294.4 MOS/KG (273-304)
[2019-04-30] MEDS: NITROGLYCERIN SL 0.4 MG TABLET SL PRN ×3 (05:56→06:06)
[2019-04-30] MEDS: MORPHINE 4 MG/1 ML VIAL IV PRN (05:59)
[2019-04-30 06:15] LABS: Basophils # 0.1 10*3/uL (0.0-0.2); Basophils % 0.3 % (0.0-0.8); Eosinophils % 0.2 % (0.00-10.9); Hematocrit 33.1 VOL% (35.7-47.0); Hemoglobin 10.3 GM/DL (12.0-16.0); Immature Granulocytes % 3.6 %; Immature Granulocytes Absolute 0.58 #; Lymphocytes # 2.1 10*3/uL (1.4-4.0); Lymphocytes % 13.2 % (21.3-54.2); Mean Corpuscular HGB Conc 31.1 GM/DL (32-36); Mean Corpuscular Volume 95.1 FL (87-102); Mean Platelet Volume 12.3 FL (9.6-12.0); Monocytes % 7.9 % (1.7-12.7); NRBC # 0.14 10*3/uL; Neutrophils % 74.8 % (38.7-73.9); Platelet Count 201 T/CUMM (130-400); Red Blood Count 3.48 MC/CUMM (3.8-5.5); Red Cell Distribution Width 18.1 % (9.3-17.3)
[2019-04-30] MEDS ORDERED: hydrALAZINE 20 MG/1 ML VIAL IV ONE (06:27)
[2019-04-30] MEDS ORDERED: ALBUTEROL/IPRATROPIUM 3 ML NEB RESP TX PRN (06:28)
[2019-04-30 06:35] LABS: Eosinophils 1 % (0-10); Hypochromasia 1+; Lymphocytes 17 % (20-55); Nucleated Red Blood Cells 1 (0-5); Platelet Estimate Adequate; Segmented Neutrophils 78 % (50-85); Total Cells Counted 100
[2019-04-30 06:38] LABS: Albumin 2.8 G/DL (3.4-5.0); Bilirubin,Total 0.7 MG/DL (0.2-1.0); Calcium 9.7 MG/DL (8.5-10.1); Osmolality,Calculated 296.4 MOS/KG (273-304); Total Protein 6.9 G/DL (6.4-8.3)
[2019-04-30] MEDS: oxyCODONE/ACETAMINOPHEN 5-325 MG TABLET PO PRN (06:42)
[2019-04-30] MEDS: CARVEDILOL 25 MG TABLET PO SCH ×2 (08:32→17:27)
[2019-04-30] MEDS: PANTOPRAZOLE 40 MG TABLET PO SCH (08:32)
[2019-04-30] MEDS: VENLAFAXINE XR 75 MG CAPSULE PO SCH (08:32)
[2019-04-30] MEDS: CHOLECALCIFEROL 1,000 UNIT TABLET PO SCH (08:32)
[2019-04-30] MEDS: ASPIRIN EC 81 MG TABLET PO SCH (08:32)
[2019-04-30] MEDS: DOCUSATE SODIUM 100 MG CAPSULE PO PRN (08:32)
[2019-04-30] MEDS: ISOSORBIDE MONONITRATE 30 MG TABLET PO SCH (08:33)
[2019-04-30] MEDS: amLODIPine 5 MG TABLET PO SCH (08:40)
[2019-04-30] MEDS: SODIUM BICARBONATE 650 MG TABLET PO SCH ×3 (08:40→20:52)
[2019-04-30] MEDS: FUROSEMIDE 40 MG TABLET PO SCH (08:40)
[2019-04-30] MEDS: DICLOFENAC 1% GEL 100 GM TUBE TOP SCH ×4 (08:43→20:52)
[2019-04-30] MEDS: cefTRIAXone 2,000 MG in SYRINGE 1 EACH IV SCH (10:17)
[2019-04-30 13:00] LABS: Troponin I 0.088 NG/ML (0.00-0.045)
[2019-04-30] MEDS: metroNIDAZOLE INJ 500 MG in PREMIX 1 EACH IV SCH (17:27)
[2019-04-30] MEDS: ENOXAPARIN 30 MG/0.3 ML SYRINGE SUBCUT SCH (17:27)
[2019-04-30] MEDS: VANCOMYCIN 50 MG/ML 60 ML/BOTTLE PO SCH (18:40)
[2019-05-01] MEDS: metroNIDAZOLE INJ 500 MG in PREMIX 1 EACH IV SCH ×3 (00:10→16:44)
[2019-05-01] MEDS: VANCOMYCIN 50 MG/ML 60 ML/BOTTLE PO SCH ×4 (00:11→17:43)
[2019-05-01] MEDS: ALBUTEROL/IPRATROPIUM 3 ML NEB RESP TX SCH ×4 (00:25→19:09)
[2019-05-01] MEDS: oxyCODONE/ACETAMINOPHEN 5-325 MG TABLET PO PRN ×4 (04:45→22:32)
[2019-05-01 05:03] LABS: Basophils % 0.2 % (0.0-0.8); Eosinophils % 0.2 % (0.00-10.9); Hematocrit 31.3 VOL% (35.7-47.0); Hemoglobin 9.6 GM/DL (12.0-16.0); Immature Granulocytes % 3.8 %; Immature Granulocytes Absolute 0.53 #; Lymphocytes # 1.1 10*3/uL (1.4-4.0); Lymphocytes % 7.9 % (21.3-54.2); Mean Corpuscular HGB Conc 30.7 GM/DL (32-36); Mean Corpuscular Volume 95.4 FL (87-102); Mean Platelet Volume 12.6 FL (9.6-12.0); Monocytes % 7.8 % (1.7-12.7); Neutrophils % 80.1 % (38.7-73.9); Platelet Count 154 T/CUMM (130-400); Red Blood Count 3.28 MC/CUMM (3.8-5.5); Red Cell Distribution Width 18.6 % (9.3-17.3); White Blood Count 13.8 T/CUMM (4-12)
[2019-05-01 05:15] LABS: Calcium 9.2 MG/DL (8.5-10.1); Osmolality,Calculated 298.5 MOS/KG (273-304)
[2019-05-01 05:40] LABS: Hypochromasia 1+; Lymphocytes 4 % (20-55); Nucleated Red Blood Cells 2 (0-5); Ovalocytes Slight; Platelet Estimate Adequate; Segmented Neutrophils 92 % (50-85); Total Cells Counted 100
[2019-05-01 05:41] LABS: Macrocytosis Slight; Polychromasia Slight
[2019-05-01] MEDS: MORPHINE 4 MG/1 ML VIAL IV PRN (05:51)
[2019-05-01] MEDS: PANTOPRAZOLE 40 MG TABLET PO SCH (08:29)
[2019-05-01] MEDS: SODIUM BICARBONATE 650 MG TABLET PO SCH ×3 (08:29→20:14)
[2019-05-01] MEDS: ASPIRIN EC 81 MG TABLET PO SCH (08:29)
[2019-05-01] MEDS: CHOLECALCIFEROL 1,000 UNIT TABLET PO SCH (08:29)
[2019-05-01] MEDS: ISOSORBIDE MONONITRATE 30 MG TABLET PO SCH (08:29)
[2019-05-01] MEDS: amLODIPine 5 MG TABLET PO SCH (08:29)
[2019-05-01] MEDS: CARVEDILOL 25 MG TABLET PO SCH ×2 (08:30→16:44)
[2019-05-01] MEDS: FUROSEMIDE 40 MG TABLET PO SCH (08:30)
[2019-05-01] MEDS: VENLAFAXINE XR 75 MG CAPSULE PO SCH (08:30)
[2019-05-01] MEDS: DICLOFENAC 1% GEL 100 GM TUBE TOP SCH ×4 (08:38→20:15)
[2019-05-01] MEDS: cefTRIAXone 2,000 MG in SYRINGE 1 EACH IV SCH (11:45)
[2019-05-01] MEDS: ENOXAPARIN 30 MG/0.3 ML SYRINGE SUBCUT SCH (16:44)
[2019-05-01] MEDS: ZINC OXIDE 16% PASTE 57 GM TUBE TOP SCH (20:14)
[2019-05-02] MEDS: VANCOMYCIN 50 MG/ML 60 ML/BOTTLE PO SCH ×4 (00:11→19:29)
[2019-05-02] MEDS: metroNIDAZOLE INJ 500 MG in PREMIX 1 EACH IV SCH ×3 (00:12→19:26)
[2019-05-02] MEDS: ALBUTEROL/IPRATROPIUM 3 ML NEB RESP TX SCH ×4 (00:22→19:38)
[2019-05-02] MEDS: oxyCODONE/ACETAMINOPHEN 5-325 MG TABLET PO PRN ×3 (08:03→20:53)
[2019-05-02] MEDS: ASPIRIN EC 81 MG TABLET PO SCH (10:12)
[2019-05-02] MEDS: ISOSORBIDE MONONITRATE 30 MG TABLET PO SCH (10:12)
[2019-05-02] MEDS: VENLAFAXINE XR 75 MG CAPSULE PO SCH (10:13)
[2019-05-02] MEDS: SODIUM BICARBONATE 650 MG TABLET PO SCH ×4 (10:15→20:53)
[2019-05-02] MEDS: CHOLECALCIFEROL 1,000 UNIT TABLET PO SCH (10:16)
[2019-05-02] MEDS: PANTOPRAZOLE 40 MG TABLET PO SCH (10:16)
[2019-05-02] MEDS: FUROSEMIDE 40 MG TABLET PO SCH (10:17)
[2019-05-02] MEDS: CARVEDILOL 25 MG TABLET PO SCH ×2 (10:17→19:28)
[2019-05-02] MEDS: DOCUSATE SODIUM 100 MG CAPSULE PO PRN (10:18)
[2019-05-02] MEDS: amLODIPine 5 MG TABLET PO SCH (10:21)
[2019-05-02] MEDS: DICLOFENAC 1% GEL 100 GM TUBE TOP SCH ×4 (10:22→20:57)
[2019-05-02] MEDS: cefTRIAXone 2,000 MG in SYRINGE 1 EACH IV SCH (13:57)
[2019-05-02] MEDS: ZINC OXIDE 16% PASTE 57 GM TUBE TOP SCH ×2 (14:09→20:56)
[2019-05-02] MEDS: SODIUM CHLORIDE 0.9% 500 ML IV SCH ×2 (14:29→22:39)
[2019-05-02] MEDS: ENOXAPARIN 30 MG/0.3 ML SYRINGE SUBCUT SCH (19:19)
[2019-05-03] MEDS: metroNIDAZOLE INJ 500 MG in PREMIX 1 EACH IV SCH ×2 (00:54→11:31)
[2019-05-03] MEDS: VANCOMYCIN 50 MG/ML 60 ML/BOTTLE PO SCH ×4 (00:54→18:47)
[2019-05-03] MEDS: oxyCODONE/ACETAMINOPHEN 5-325 MG TABLET PO PRN ×3 (01:02→21:25)
[2019-05-03] MEDS: ALBUTEROL/IPRATROPIUM 3 ML NEB RESP TX SCH ×4 (01:26→19:20)
[2019-05-03] MEDS: SODIUM CHLORIDE 0.9% 500 ML IV SCH (05:54)
[2019-05-03 06:13] LABS: Basophils # 0.1 10*3/uL (0.0-0.2); Basophils % 0.2 % (0.0-0.8); Hematocrit 29.3 VOL% (35.7-47.0); Hemoglobin 9.3 GM/DL (12.0-16.0); Immature Granulocytes % 1.8 %; Immature Granulocytes Absolute 0.49 #; Lymphocytes # 1.4 10*3/uL (1.4-4.0); Lymphocytes % 5.1 % (21.3-54.2); Mean Corpuscular HGB Conc 31.7 GM/DL (32-36); Mean Corpuscular Volume 97.3 FL (87-102); Mean Platelet Volume 13.4 FL (9.6-12.0); Monocytes % 5.2 % (1.7-12.7); Neutrophils % 87.7 % (38.7-73.9); Red Blood Count 3.01 MC/CUMM (3.8-5.5); Red Cell Distribution Width 20.7 % (9.3-17.3); White Blood Count 27.8 T/CUMM (4-12)
[2019-05-03 06:19] LABS: Platelet Count 104 T/CUMM (130-400)
[2019-05-03 06:46] LABS: Calcium 8.9 MG/DL (8.5-10.1); Macrocytosis 1+; Osmolality,Calculated 304.3 MOS/KG (273-304); Polychromasia Slight
[2019-05-03 06:47] LABS: Acanthocytes Few; Anisocytosis 1+; Burr Cells Few
[2019-05-03 06:48] LABS: Poikilocytosis 1+
[2019-05-03 06:49] LABS: Hypochromasia 1+
[2019-05-03] MEDS: cefTRIAXone 2,000 MG in SYRINGE 1 EACH IV SCH (11:21)
[2019-05-03] MEDS: PANTOPRAZOLE 40 MG TABLET PO SCH (11:26)
[2019-05-03] MEDS: SODIUM BICARBONATE 650 MG TABLET PO SCH ×3 (11:26→21:24)
[2019-05-03] MEDS: VENLAFAXINE XR 75 MG CAPSULE PO SCH (11:26)
[2019-05-03] MEDS: ZINC OXIDE 16% PASTE 57 GM TUBE TOP SCH ×2 (11:27→21:36)
[2019-05-03] MEDS: ASPIRIN EC 81 MG TABLET PO SCH (11:27)
[2019-05-03] MEDS: CHOLECALCIFEROL 1,000 UNIT TABLET PO SCH (11:27)
[2019-05-03] MEDS: CARVEDILOL 25 MG TABLET PO SCH ×2 (11:43→20:25)
[2019-05-03] MEDS: ISOSORBIDE MONONITRATE 30 MG TABLET PO SCH (11:43)
[2019-05-03] MEDS: DICLOFENAC 1% GEL 100 GM TUBE TOP SCH ×4 (12:39→21:36)
[2019-05-03] MEDS: SODIUM CHLORIDE 0.9% 1,000 ML IV SCH ×2 (12:43→22:56)
[2019-05-03 17:52] LABS: Apearance,Urine Slightly Hazy (Clear); Bacteria,Urine Occasional /HPF (Few); Bilirubin,Urine Negative (Negative); Blood, Urine Negative (Negative); Glucose,Urine (UA) Negative (Negative); Ketones,Urine Negative (Negative); Nitrite,Urine Negative (Negative); Protein,Urine Negative; RBC,Urine 1 /HPF (0-4); Squamous Epithelial Cell,Urine Occasional /HPF (0-10); Urine Color Amber (Yellow); Urine Urobilinogen < 2.0 EU/DL (0.2-1.0); WBC,Urine <1 /HPF (0-6)
[2019-05-03] MEDS: ENOXAPARIN 30 MG/0.3 ML SYRINGE SUBCUT SCH (18:46)
[2019-05-03] MEDS ORDERED: ATORVASTATIN 20 MG TABLET PO SCH (21:00)
[2019-05-04] MEDS: ALBUTEROL/IPRATROPIUM 3 ML NEB RESP TX SCH ×4 (01:20→19:07)
[2019-05-04] MEDS: oxyCODONE/ACETAMINOPHEN 5-325 MG TABLET PO PRN ×2 (05:20→17:00)
[2019-05-04] MEDS: SODIUM CHLORIDE 0.9% 500 ML IV SCH (07:57)
[2019-05-04 08:23] LABS: Basophils # 0.1 10*3/uL (0.0-0.2); Basophils % 0.2 % (0.0-0.8); Hematocrit 30.9 VOL% (35.7-47.0); Hemoglobin 9.3 GM/DL (12.0-16.0); Immature Granulocytes % 1.8 %; Immature Granulocytes Absolute 0.45 #; Lymphocytes # 0.7 10*3/uL (1.4-4.0); Lymphocytes % 2.9 % (21.3-54.2); Mean Corpuscular HGB Conc 30.1 GM/DL (32-36); Mean Platelet Volume 12.9 FL (9.6-12.0); Monocytes % 5.1 % (1.7-12.7); NRBC # 0.15 10*3/uL; Red Blood Count 3.06 MC/CUMM (3.8-5.5); Red Cell Distribution Width 21.5 % (9.3-17.3); White Blood Count 25.1 T/CUMM (4-12)
[2019-05-04 08:26] LABS: Platelet Count 99 T/CUMM (130-400)
[2019-05-04 08:43] LABS: Calcium 8.4 MG/DL (8.5-10.1); Osmolality,Calculated 306.1 MOS/KG (273-304)
[2019-05-04 08:51] LABS: Band Neutrophils 14 % (0-10); Lymphocytes 1 % (20-55); Nucleated Red Blood Cells 2 (0-5); Segmented Neutrophils 81 % (50-85); Total Cells Counted 100
[2019-05-04 08:53] LABS: Anisocytosis 3+; Platelet Estimate Decreased; Poikilocytosis 1+; Polychromasia Slight
[2019-05-04 08:54] LABS: Acanthocytes Few; Giant Platelets Few; Macrocytosis 1+
[2019-05-04] MEDS: SODIUM CHLORIDE 0.9% 1,000 ML IV SCH (09:10)
[2019-05-04] MEDS: VENLAFAXINE XR 75 MG CAPSULE PO SCH (09:11)
[2019-05-04] MEDS: CHOLECALCIFEROL 1,000 UNIT TABLET PO SCH (09:11)
[2019-05-04] MEDS: ACETAMINOPHEN 325 MG TABLET PO PRN (09:11)
[2019-05-04] MEDS: ASPIRIN EC 81 MG TABLET PO SCH (09:12)
[2019-05-04] MEDS: SODIUM BICARBONATE 650 MG TABLET PO SCH (09:12)
[2019-05-04] MEDS: DICLOFENAC 1% GEL 100 GM TUBE TOP SCH ×4 (09:12→21:00)
[2019-05-04] MEDS: CARVEDILOL 25 MG TABLET PO SCH (09:12)
[2019-05-04] MEDS: ISOSORBIDE MONONITRATE 30 MG TABLET PO SCH (09:12)
[2019-05-04] MEDS: ZINC OXIDE 16% PASTE 57 GM TUBE TOP SCH ×2 (09:12→23:22)
[2019-05-04] MEDS: PANTOPRAZOLE 40 MG TABLET PO SCH (09:12)
[2019-05-04] MEDS: cefTRIAXone 2,000 MG in SYRINGE 1 EACH IV SCH (10:51)
[2019-05-04] MEDS ORDERED: CARVEDILOL 12.5 MG TABLET PO SCH (12:33)
[2019-05-04] MEDS: SODIUM BICARB INJ 100 MEQ in DEXTROSE 5% 1,000 ML IV SCH (16:59)
[2019-05-04] MEDS: miSOPROStol 200 MCG TABLET PO SCH ×2 (17:00→20:59)
[2019-05-04] MEDS: ENOXAPARIN 30 MG/0.3 ML SYRINGE SUBCUT SCH (17:00)
[2019-05-05] MEDS: ALBUTEROL/IPRATROPIUM 3 ML NEB RESP TX SCH ×3 (01:00→13:23)
[2019-05-05] MEDS: SODIUM BICARB INJ 100 MEQ in DEXTROSE 5% 1,000 ML IV SCH ×3 (01:56→21:17)
[2019-05-05 04:40] LABS: Basophils % 0.1 % (0.0-0.8); Eosinophils % 0.1 % (0.00-10.9); Hematocrit 30.1 VOL% (35.7-47.0); Hemoglobin 9.4 GM/DL (12.0-16.0); Immature Granulocytes % 1.3 %; Immature Granulocytes Absolute 0.22 #; Lymphocytes # 0.9 10*3/uL (1.4-4.0); Lymphocytes % 5.3 % (21.3-54.2); Mean Corpuscular HGB Conc 31.2 GM/DL (32-36); Mean Corpuscular Volume 97.1 FL (87-102); Mean Platelet Volume 12.5 FL (9.6-12.0); Monocytes % 5.5 % (1.7-12.7); NRBC # 0.17 10*3/uL; Neutrophils % 87.7 % (38.7-73.9); Platelet Count 107 T/CUMM (130-400); Red Cell Distribution Width 22.7 % (9.3-17.3); White Blood Count 17.6 T/CUMM (4-12)
[2019-05-05 05:02] LABS: Anisocytosis 1+; Microcytosis Slight; Platelet Estimate Adequate; Polychromasia Few
[2019-05-05 05:05] LABS: Albumin 2.3 G/DL (3.4-5.0); Calcium 8.2 MG/DL (8.5-10.1); Osmolality,Calculated 309.3 MOS/KG (273-304)
[2019-05-05] MEDS: VENLAFAXINE XR 75 MG CAPSULE PO SCH (08:33)
[2019-05-05] MEDS: miSOPROStol 200 MCG TABLET PO SCH ×4 (08:33→20:18)
[2019-05-05] MEDS: DICLOFENAC 1% GEL 100 GM TUBE TOP SCH ×4 (08:34→21:55)
[2019-05-05] MEDS: PANTOPRAZOLE 40 MG TABLET PO SCH (08:34)
[2019-05-05] MEDS: ASPIRIN EC 81 MG TABLET PO SCH (08:34)
[2019-05-05] MEDS: CHOLECALCIFEROL 1,000 UNIT TABLET PO SCH (08:34)
[2019-05-05] MEDS: ISOSORBIDE MONONITRATE 30 MG TABLET PO SCH (08:34)
[2019-05-05] MEDS: ZINC OXIDE 16% PASTE 57 GM TUBE TOP SCH ×2 (08:34→21:55)
[2019-05-05] MEDS: ALBUMIN 25% 25 GM in PREMIX 1 EACH IV SCH ×2 (10:12→18:12)
[2019-05-05] MEDS: cefTRIAXone 2,000 MG in SYRINGE 1 EACH IV SCH (11:27)
[2019-05-05] MEDS: ALBUTEROL 2.5 MG/3 ML NEB RESP TX SCH ×3 (15:30→23:00)
[2019-05-05] MEDS ORDERED: FLUCONAZOLE INJ 100 MG in IV BAG 1 EACH IV ONE (16:00)
[2019-05-05] MEDS: ENOXAPARIN 30 MG/0.3 ML SYRINGE SUBCUT SCH (16:31)
[2019-05-05] MEDS ORDERED: FUROSEMIDE 20 MG/2 ML VIAL IV ONE (22:54)
[2019-05-05] MEDS ORDERED: FUROSEMIDE 20 MG/2 ML VIAL ONE (22:56)
[2019-05-05] MEDS ORDERED: LEVALBUTEROL 1.25 MG/3 ML NEB RESP TX STA (23:00)
[2019-05-05 23:04] LABS: ABG Base Excess -1.9 MMOL/L (-2.5-2.5); ABG HCO3 22.8 MMOL/L (20-26); ABG PCO2 43.6 MM HG (35-48); ABG PH 7.344 (7.35-7.45); ABG PO2 75.5 MM HG (80-95); Allen Test Positive; Pt O2 Delivery Device Venturi Mask
[2019-05-06] MEDS: ALBUMIN 25% 25 GM in PREMIX 1 EACH IV SCH ×3 (01:37→17:19)
[2019-05-06] MEDS: ALBUTEROL 2.5 MG/3 ML NEB RESP TX SCH ×6 (03:18→22:53)
[2019-05-06 04:25] LABS: Basophils % 0.1 % (0.0-0.8); Eosinophils % 0.1 % (0.00-10.9); Hemoglobin 8.3 GM/DL (12.0-16.0); Immature Granulocytes % 1.1 %; Immature Granulocytes Absolute 0.17 #; Lymphocytes # 0.9 10*3/uL (1.4-4.0); Lymphocytes % 5.7 % (21.3-54.2); Mean Corpuscular HGB Conc 31.9 GM/DL (32-36); Mean Corpuscular Volume 95.6 FL (87-102); Mean Platelet Volume 13.2 FL (9.6-12.0); Monocytes % 7.4 % (1.7-12.7); NRBC # 0.07 10*3/uL; Neutrophils % 85.6 % (38.7-73.9); Platelet Count 115 T/CUMM (130-400); Red Blood Count 2.72 MC/CUMM (3.8-5.5); Red Cell Distribution Width 22.4 % (9.3-17.3)
[2019-05-06 04:39] LABS: Albumin 3.4 G/DL (3.4-5.0); Calcium 8.8 MG/DL (8.5-10.1); Osmolality,Calculated 304.5 MOS/KG (273-304)
[2019-05-06 05:08] LABS: Anisocytosis 1+; Lymphocytes 2 % (20-55); Nucleated Red Blood Cells 1 (0-5); Platelet Estimate Decreased; Segmented Neutrophils 95 % (50-85); Total Cells Counted 100
[2019-05-06] MEDS: oxyCODONE/ACETAMINOPHEN 5-325 MG TABLET PO PRN (09:00)
[2019-05-06] MEDS: ISOSORBIDE MONONITRATE 30 MG TABLET PO SCH (09:01)
[2019-05-06] MEDS: VENLAFAXINE XR 75 MG CAPSULE PO SCH (09:01)
[2019-05-06] MEDS: PANTOPRAZOLE 40 MG TABLET PO SCH (09:01)
[2019-05-06] MEDS: ASPIRIN EC 81 MG TABLET PO SCH (09:01)
[2019-05-06] MEDS: miSOPROStol 200 MCG TABLET PO SCH ×2 (09:01→11:14)
[2019-05-06] MEDS: DICLOFENAC 1% GEL 100 GM TUBE TOP SCH ×4 (09:22→22:01)
[2019-05-06] MEDS: ZINC OXIDE 16% PASTE 57 GM TUBE TOP SCH ×2 (09:22→22:01)
[2019-05-06] MEDS: MORPHINE 4 MG/1 ML VIAL IV PRN ×2 (13:10→17:41)
[2019-05-06] MEDS ORDERED: FAMOTIDINE 20 MG/2 ML VIAL IV SCH (16:00)
[2019-05-06] MEDS: ENOXAPARIN 30 MG/0.3 ML SYRINGE SUBCUT SCH (16:47)
[2019-05-07] MEDS: ALBUMIN 25% 25 GM in PREMIX 1 EACH IV SCH (02:40)
[2019-05-07] MEDS: ALBUTEROL 2.5 MG/3 ML NEB RESP TX SCH (02:55)
[2019-05-07 04:59] VITALS: BP 78/60
[2019-05-07 05:34] LABS: Basophils % 0.1 % (0.0-0.8); Hematocrit 27.9 VOL% (35.7-47.0); Hemoglobin 8.5 GM/DL (12.0-16.0); Immature Granulocytes % 1.7 %; Immature Granulocytes Absolute 0.25 #; Lymphocytes # 0.9 10*3/uL (1.4-4.0); Lymphocytes % 5.8 % (21.3-54.2); Mean Corpuscular HGB Conc 30.5 GM/DL (32-36); Mean Corpuscular Volume 99.6 FL (87-102); Mean Platelet Volume 12.9 FL (9.6-12.0); Monocytes % 7.1 % (1.7-12.7); NRBC # 0.13 10*3/uL; Neutrophils % 85.3 % (38.7-73.9); Platelet Count 83 T/CUMM (130-400); Red Cell Distribution Width 22.5 % (9.3-17.3); White Blood Count 14.8 T/CUMM (4-12)
[2019-05-07 05:54] LABS: Lymphocytes 7 % (20-55); Nucleated Red Blood Cells 1 (0-5); Platelet Estimate Decreased; Segmented Neutrophils 87 % (50-85); Total Cells Counted 100
[2019-05-07 05:55] LABS: Burr Cells Slight; Hypochromasia 1+; Ovalocytes Slight; Polychromasia Slight
[2019-05-07 05:56] LABS: Macrocytosis Slight
[2019-05-07 06:01] LABS: Albumin 3.8 G/DL (3.4-5.0); Calcium 9.1 MG/DL (8.5-10.1)
[2019-05-07] MEDS ORDERED: DEXTROSE 10% 250 ML IV ONE (06:11)
[2019-05-07] MEDS ORDERED: DEXTROSE 10% 250 ML BAG IV PRN (06:12)
[2019-05-07] MEDS: MORPHINE 4 MG/1 ML VIAL IV PRN (06:43)
== END 2019-05-07 06:57 | disposition expired | DRG 871 ==
LOC: N.ED 07:10 → N.EDINP 07:10 → N.5E 12:37 → SUATTDRO 04-20 13:38 → N.5E 04-23 18:12 → N.CC 04-24 22:33 → N.3E 04-27 15:13
PROVIDERS: ADMIT Internal Medicine; ATTEND Internal Medicine